=== PATIENT | female | born 1970 | race African-American/Black ===

== ENCOUNTER 2016-12-01 09:31 | Emergency (ER) | payer MEDICAID, MEDICARE ==
[~2016-12-01] VITALS: Ht 160 cm; Wt 95.3 kg
[~2016-12-01 09:31] MED LIST: ALPR1TAB2 PO; ALPR1TAB7 PO; AMIT50TA3 PO; AZIT250T PO; CEFD300C3 PO; DOCU100C37 PO; FAMO20TA3 PO; HYDR-3062 PO; HYDR-3063 PO; HYDR-3816 PO; IBUP-1780 PO; LISI-552 PO; METH4TAB PO; METO-351 PO; PANT40TA2 PO; PANT40TA3 PO; PRD20T PO; RT-ALBUINH IH; SUCR1TAB36 PO; ZOLP5TAB7 PO
[2016-12-01] MEDS ORDERED: NS IV 1000 ML 1,000 ML IV STA (09:53)
[2016-12-01] MEDS ORDERED: fentaNYL INJECTION 100 MCG/2 ML AMP IVP STA ×2 (09:53→12:56)
[2016-12-01] MEDS ORDERED: ONDANSETRON 4 MG/2 ML (SDV) Z0FRAN IVP ONE (10:00)
[2016-12-01 10:41] LABS: BASOPHILS % (AUTO) 1 % (0-10); EOSINOPHILS # (AUTO) 0.1 10^3/uL (0.0-0.3); EOSINOPHILS % (AUTO) 2 % (0-10); LYMPHOCYTES # (AUTO) 1.4 X 10^3 (1.0-4.0); LYMPHOCYTES % (AUTO) 35 % (12-44); MEAN CORPUSCULAR HEMOGLOBIN 30 PG (25-34); MEAN CORPUSCULAR HGB CONC 32 G/DL (32-36); MEAN CORPUSCULAR VOLUME 93 FL (80-99); MEAN PLATELET VOLUME 11.2 FL (7.4-10.4); MONOCYTES # (AUTO) 0.3 X 10^3 (0.0-1.0); MONOCYTES % (AUTO) 6 % (0-12); NEUTROPHILS # (AUTO) 2.3 X 10^3 (1.8-7.8); NEUTROPHILS % (AUTO) 57 % (42-75); PLATELET COUNT 188 10^3/uL (130-400); RED BLOOD COUNT 4.05 10^6/uL (4.35-5.85); RED CELL DISTRIBUTION WIDTH 13.1 % (10.0-14.5); WHITE BLOOD COUNT 4.1 10^3/uL (4.3-11.0)
[2016-12-01 11:02] LABS: ALANINE AMINOTRANSFERASE 16 U/L (0-55); ANION GAP 8 MMOL/L (5-14); ASPARTATE AMINO TRANSFERASE 18 U/L (5-34); BILIRUBIN,TOTAL 0.6 MG/DL (0.1-1.0); BLOOD UREA NITROGEN 12 MG/DL (7-18); BUN/CREATININE RATIO 14; CALCIUM 9.2 MG/DL (8.5-10.1); CARBON DIOXIDE 25 MMOL/L (21-32); CHLORIDE 109 MMOL/L (98-107); CREATININE SERUM 0.83 MG/DL (0.60-1.30); GFR ESTIMATED > 60; GLUCOSE 93 MG/DL (70-105); POTASSIUM 3.5 MMOL/L (3.6-5.0); SODIUM 142 MMOL/L (135-145); TOTAL PROTEIN 6.9 G/DL (6.4-8.2)
[2016-12-01 11:14] LABS: BILIRUBIN,URINE NEGATIVE (NEGATIVE); KETONES,URINE NEGATIVE (NEGATIVE); LEUKOCYTE ESTERASE ,URINE 1+ (NEGATIVE); NITRITE,URINE NEGATIVE (NEGATIVE); PH,URINE 6 (5-9); PROTEIN,URINE 1+ (NEGATIVE); UROBILINOGEN,URINE NORMAL (NORMAL)
--- NOTE | 2016-12-01 11:22 | ED Abdominal Pain ---
General Chief Complaint: Abdominal/GI Problems Stated Complaint: ABD PAIN Nursing Triage Note: C/O LOW ABD CRAMPING Sepsis Screen: No Definite Risk Source of Information: Patient Exam Limitations: No Limitations History of Present Illness Time Seen By Provider: 09:47 Initial Comments Here with report of suprapubic and lower abdominal pain and cramping since yesterday. Patient has had hysterectomy but she states it feels like menstrual cramps. She denies dysuria or diarrhea or other bowel problems. She does report that she has chronic constipation. Denies fever or chills. Does have some nausea without vomiting. Timing/Duration: 24 Hours Severity/Quality: Moderate, Cramping Location: Suprapubic Radiation: No Radiation Activities at Onset: None Modifying Factors: Worsens With Movement Associated Symptoms: No Back Pain, No Chest Pain, No Fever/Chills, Nausea/ Vomiting, No Weakness Allergies and Home Medications Allergies Coded Allergies: Sulfa (Sulfonamide Antibiotics) (Verified Allergy, Unknown, 04/22/15) topiramate (Verified Allergy, Unknown, 05/22/15) tramadol (Verified Allergy, Unknown, 04/22/15) Uncoded Allergies: SILK TAPE (Adverse Reaction, Unknown, 05/22/15) Home Medications Alprazolam 1 Mg Tablet, 1 MG PO TID PRN for ANXIETY, (Reported) Lisinopril 20 Mg Tablet, 20 MG PO DAILY, (Reported) Metoprolol Succinate 25 Mg Tab.er.24h, 25 MG PO HS, (Reported) Pantoprazole Sodium 40 Mg Tablet.dr, 40 MG PO DAILY, #30 Ref 4 Prescribed by: JESSIE DEE on 12/08/15 1141 Prednisone 20 Mg Tab, 20 MG PO DAILY, #3 Prescribed by: SHANA SARGENT on 12/12/15 1829 Sucralfate 1 Gm Tablet, 1 GM PO QID, #120 Prescribed by: JESSIE DEE on 12/08/15 1141 Review of Systems Constitutional: see HPI, No chills, No fever EENTM: No Symptoms Reported Respiratory: No Symptoms Reported, Denies Cough, Denies Shortness of Air Cardiovascular: Denies Chest Pain, Denies Edema Gastrointestinal: See HPI, Abdominal Pain, Constipated, Nausea, Denies Vomiting Genitourinary: No Symptoms Reported Musculoskeletal: no symptoms reported All Other Systems Reviewed Negative Unless Noted: Yes Past Bkzkorw-Tdslds-Fjadpf Hx Patient Social History Alcohol Use: Denies Use Recreational Drug Use: No Smoking Status: Never a Smoker Recent Foreign Travel: No Contact w/Someone Who Travel: No Recent Infectious Disease Expo: No Recent Hopitalizations: No Immunizations Up To Date Tetanus Booster (TDap): Unknown Date of Pneumonia Vaccine: Sep 14, 2012 Surgeries HX Surgeries: Yes (hernia repair, ovary removed, DXLS, kidney stone-URETERAL STENTS) Surgeries: Abdominal, Appendectomy, Gallbladder, Hysterectomy, Oophorectomy, Orthopedic, Renal, Tubal Ligation Respiratory Hx Respiratory Disorders: No Cardiovascular Hx Cardiac Disorders: No Cardiac Disorders: Cardiomyopathy, Hypertension, Valvular Heart Disease Neurological Hx Neurological Disorders: Yes (lumbar spinal stenosis) Neurological Disorders: Headaches /Migraines Reproductive System Hx 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: No Female 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: Endometriosis [employer] History: Hysterectomy Genitourinary Hx Genitourinary Disorders: Yes (URETERAL STENT) Genitourinary Disorders: Kidney Stones Gastrointestinal Hx Gastrointestinal Disorders: Yes Gastrointestinal Disorders: Gastroesophageal Reflux, Diverticulosis Musculoskeletal Hx Musculoskeletal Disorders: Yes (lumbar spinal stenosis) Musculoskeletal Disorders: Chronic Back Pain Endocrine Hx Endocrine Disorders: Yes Endocrine Disorders: Diabetes, Non-Insulin dep HEENT HX ENT Disorders: No Cancer Hx Cancer: No Psychosocial Hx Psychiatric Problems: Yes Behavioral Health Disorders: Anxiety, Schizophrenia, Depression Integumentary HX Skin/Integumentary Disorder: No Blood Transfusions Hx Blood Disorders: No Adverse Reaction to a Blood Tr: No Reviewed Nursing Assessment Reviewed/Agree w Nursing PMH: Yes Family Medical History Significant Family History: No Pertinent Family Hx, CVA Family Medial History: Hypertension 19 MOTHER Kidney disease 19 MOTHER Myocardial infarction 19 FATHER Physical Exam Vital Signs VS - Last 72 Hours, by Label 12/01/16 09:45 Temp 98.3 Pulse 70 Resp 18 B/P (MAP) 146/93 Capillary Refill : Less Than 3 Seconds General Appearance: WD/WN, no apparent distress Neck: full range of motion, supple Respiratory: lungs clear, normal breath sounds Cardiovascular: regular rate, rhythm, no murmur Gastrointestinal: soft, tenderness (suprapubic did not illuminate with the police at) Extremities: non-tender, normal inspection Back: normal inspection, no CVA tenderness, no vertebral tenderness Neurologic/Psychiatric: alert, oriented x 3 Skin: normal color, warm/dry Progress/Results/Core Measures Results/Orders Lab Results Laboratory Tests Test 12/01/16 10:30 12/01/16 11:08 Range/Units White Blood Count 4.1 L 4.3-11.0 10^3/uL Red Blood Count 4.05 L 4.35-5.85 10^6/uL Hemoglobin 12.0 11.5-16.0 G/DL Hematocrit 38 35-52 % Mean Corpuscular Volume 93 80-99 FL Mean Corpuscular Hemoglobin 30 25-34 PG Mean Corpuscular Hemoglobin Concent 32 32-36 G/DL Red Cell Distribution Width 13.1 10.0-14.5 % Platelet Count 188 130-400 10^3/uL Mean Platelet Volume 11.2 H 7.4-10.4 FL Neutrophils (%) (Auto) 57 42-75 % Lymphocytes (%) (Auto) 35 12-44 % Monocytes (%) (Auto) 6 0-12 % Eosinophils (%) (Auto) 2 0-10 % Basophils (%) (Auto) 1 0-10 % Neutrophils # (Auto) 2.3 1.8-7.8 X 10^3 Lymphocytes # (Auto) 1.4 1.0-4.0 X 10^3 Monocytes # (Auto) 0.3 0.0-1.0 X 10^3 Eosinophils # (Auto) 0.1 0.0-0.3 10^3/uL Basophils # (Auto) 0.0 0.0-0.1 10^3/uL Sodium Level 142 135-145 MMOL/L Potassium Level 3.5 L 3.6-5.0 MMOL/L Chloride Level 109 H 98-107 MMOL/L Carbon Dioxide Level 25 21-32 MMOL/L Anion Gap 8 5-14 MMOL/L Blood Urea Nitrogen 12 7-18 MG/DL Creatinine 0.83 0.60-1.30 MG/DL Estimat Glomerular Filtration Rate > 60 BUN/Creatinine Ratio 14 Glucose Level 93 70-105 MG/DL Calcium Level 9.2 8.5-10.1 MG/DL Total Bilirubin 0.6 0.1-1.0 MG/DL Aspartate Amino Transf (AST/SGOT) 18 5-34 U/L Alanine Aminotransferase (ALT/SGPT) 16 0-55 U/L Alkaline Phosphatase 88 40-136 U/L C-Reactive Protein High Sensitivity 1.40 H 0.00-0.50 MG/DL Total Protein 6.9 6.4-8.2 G/DL Albumin 4.0 3.2-4.5 G/DL Urine Color YELLOW Urine Clarity VERY CLOUDY H Urine pH 6 5-9 Urine Specific [place] 1.025 H 1.016-1.022 Urine Protein 1+ H NEGATIVE Urine Glucose (UA) NEGATIVE NEGATIVE Urine Ketones NEGATIVE NEGATIVE Urine Nitrite NEGATIVE NEGATIVE Urine Bilirubin NEGATIVE NEGATIVE Urine Urobilinogen NORMAL NORMAL MG/DL Urine Leukocyte Esterase 1+ H NEGATIVE Urine RBC (Auto) NEGATIVE NEGATIVE Urine RBC NONE /HPF Urine WBC 5-10 H /HPF Urine Squamous Epithelial Cells 10-25 H /HPF Urine Crystals PRESENT H /LPF Urine Calcium Oxalate Crystals RARE H /LPF Urine Bacteria MODERATE H /HPF Urine Casts NONE /LPF Urine Mucus MODERATE H /LPF Urine Culture Indicated YES My Orders Orders - LILIAN RUTHERFORD MD Cbc With Automated Diff (12/01/16 09:53) Comprehensive Metabolic Panel (12/01/16 09:53) Hs C Reactive Protein (12/01/16 09:53) Ua Culture If Indicated (12/01/16 09:53) Ondansetron Injection (Zofran Injectio (12/01/16 10:00) Ns Iv 1000 Ml (Sodium Chloride 0.9%) (12/01/16 09:53) Saline Lock/Iv-Start (12/01/16 09:53) Fentanyl Injection (Sublimaze Injection (12/01/16 09:53) Urine Culture (12/01/16 11:08) Ct Abdomen/Pelvis W (12/01/16 11:49) Iohexol Injection (Omnipaque 350 Mg/Ml 1 (12/01/16 12:30) Ns (Ivpb) (Sodium Chloride 0.9% Ivpb Bag (12/01/16 12:30) Sodium Chloride Flush (Catheter Flush Sy (12/01/16 12:30) Fentanyl Injection (Sublimaze Injection (12/01/16 12:56) Ketorolac Injection (Toradol Injection) (12/01/16 12:56) Hydrocodone/Apap 7.5/325 Tab (Lortab 7. (12/01/16 13:26) Ceftriaxone Injection (Rocephin Injectio (12/01/16 13:30) Medications Given in ED Current Medications Medications Dose Ordered Sig/Louie Route Start Time Stop Time Status Last Admin Dose Admin Ceftriaxone Sodium 1000 mg/ Sodium Chloride 50 ml @ 100 mls/hr ONCE ONCE IV 12/01/16 13:30 12/01/16 13:59 DC 12/01/16 13:36 100 MLS/HR Iohexol 100 ml ONCE ONCE IV 12/01/16 12:30 12/01/16 12:58 DC 12/01/16 12:31 100 ML Ondansetron HCl 4 mg ONCE ONCE IVP 12/01/16 10:00 12/01/16 10:01 DC 12/01/16 11:23 4 MG Sodium Chloride 100 ml ONCE ONCE IV 12/01/16 12:30 12/01/16 12:58 DC 12/01/16 12:31 80 ML Vital Signs/I&O Vital Sign - Last 12Hours 12/01/16 09:45 Temp 98.3 Pulse 70 Resp 18 B/P (MAP) 146/93 Blood Pressure Mean: 110 Progress Note : Progress Note Seen and evaluated. IV, labs and UA ordered. Anticipate CT scan based on results. Monitor patient. Zofran 4 mg IV, and fentanyl 50 g IV and normal saline 1 L bolus ordered. Repeat fentanyl 100 g IV and Toradol [address] abdomen and pelvis completed. No acute findings noted the patient remains in pain. This is after the fentanyl. I did discuss the case with Dr. Barrios. We will try oral pain medicine and I will give a dose of IV antibiotics due to patient's reported nausea and see how she does with that. If she is doing a little better then we will try to get appointment in clinic tomorrow. Patient was okay with this. Monitor patient. Rocephin 1 g IV and hydrocodone 7.5/325 one tab by mouth ordered and initiated. Monitor patient. 1411: Patient doing a little better. I did discuss the case with Dr. Barrios. She will help establish follow-up tomorrow in the clinic. I also discussed with Dr. Barrios about patient's concern about possible surgical follow-up for endoscopy as she had a recommendation of this while she was in [place]. She has noted to concerns. Discharged home with return precautions. Patient verbalize understanding instructions and agreement with plan. Departure Impression Impression: Primary Impression: Lower abdominal pain Additional Impression: Urinary tract infection Qualified Codes: N30.00 - Acute cystitis without hematuria Disposition: HOME, SELF-CARE Condition: Improved Departure-Patient Inst. Decision time for Depature: 14:14 Referrals: NO,LOCAL PHYSICIAN (PCP/Family) Primary Care Physician Patient Instructions: Acute Abdomen (Belly Pain), Adult (DC), Urinary Tract Infection, Adult (DC) Add. Discharge Instructions: All discharge instructions reviewed with patient and/or family. Voiced understanding. Take medications as directed. Follow-up in the clinic tomorrow for recheck and further evaluation. Call the clinic today for follow-up appointment. Return for worse pain, weakness, swelling, breathing problems, difficulty with going to the bathroom or other concerns as needed. Continue home medications as directed. Scripts Hydrocodone/Acetaminophen (Hydrocodon-Acetaminoph 7.5-325) 1 Each Tablet 1 EACH PO Q6H, #12 TAB 0 Refills Prov: LILIAN RUTHERFORD MD 12/01/16 Cephalexin (Cephalexin) 500 Mg Tablet 500 MG PO TID, #21 TAB 0 Refills Prov: LILIAN RUTHERFORD MD 12/01/16 LILIAN RUTHERFORD MD Dec 01, 2016 11:22
[2016-12-01 11:24] LABS: CALCIUM OXALATE CRYSTALS,UR RARE /LPF
[2016-12-01] MEDS ORDERED: IOHEXOL 350 MG/ML 100 ML (OMNIPAQUE 350) VIAL IV ONE (12:30)
[2016-12-01] MEDS ORDERED: CATHETER FLUSH 10 ML SYR IV PRN (12:30)
[2016-12-01] MEDS ORDERED: NS 100 ML (IVPB) BAG IV ONE (12:30)
--- NOTE | 2016-12-01 12:55 | Diagnostic Imaging Report ---
PROCEDURE: CT abdomen and pelvis with contrast. TECHNIQUE: Multiple contiguous axial images were obtained through the abdomen and pelvis after administration of intravenous contrast. INDICATION: Stomach cramps. Nausea. 100 mL of Omnipaque 350 is administered intravenously. FINDINGS: Minimal atelectasis in the lung bases is seen. The liver demonstrate left hepatic lobe lesion measuring 1.5 cm in length with low density likely related to a cyst. This is similar to CT of 04/22/2015 exam. No other hepatic mass identified. Cholecystectomy clips are seen. The spleen is not enlarged. The pancreas and adrenals appear unremarkable. The kidneys have symmetric enhancement and contrast excretion. The abdominal aorta is normal in caliber. No para-aortic significantly enlarged lymph nodes are seen. Extensive diverticulosis involving mostly the sigmoid colon is seen. No evidence of diverticulitis. Suture material near the base of the cecum is probably related to prior appendectomy. There is also suggestion of prior hysterectomy. There is no significant free fluid or fluid collection in the abdomen or pelvis. The osseous structures demonstrate degenerative changes at the SI joints and mild degenerative changes in the lower thoracic spine. IMPRESSION: Diverticulosis. No diverticulitis. Dictated by: Dictated on workstation # [id number]
[2016-12-01] MEDS ORDERED: KETOROLAC 30 MG/ML VIAL IVP STA (12:56)
[2016-12-01] MEDS ORDERED: HYDROcodone/APAP 7.5 MG/325 MG (LORTAB, LORCET PLUS) TABLET PO STA (13:26)
[2016-12-01] MEDS ORDERED: cefTRIAXone INJECTION 1,000 MG in NS (IVPB) 50 ML IV ONE (13:30)
[2016-12-01] MEDS ORDERED: HYDR-3816 PO (14:15)
[2016-12-01] MEDS ORDERED: CEPH500T PO (14:15)
[2016-12-01 14:20] VITALS: BP 120/90
== END 2016-12-01 14:20 | disposition home or self-care (01) ==
LOC: EDUNIT# 09:31 → ER 09:34
DX: R10.30 Lower abdominal pain, unspecified (principal); K57.30 Diverticulosis of large intestine without perforation or abscess without bleeding; I10 Essential (primary) hypertension; E11.9 Type 2 diabetes mellitus without complications; Z90.710 Acquired absence of both cervix and uterus; Z79.899 Other long term (current) drug therapy
CPT/HCPCS: 36415; 74177; 80053; 81000; 85025; 86141; 87088; 96365; 96375; 96376

== ENCOUNTER 2016-12-29 05:39 | Outpatient (CLI) | payer MEDICARE ==
[~2016-12-29] VITALS: Ht 160 cm; Wt 95.3 kg
[~2016-12-29 05:39] MED LIST changes: +CEPH500T PO
== END 2016-12-29 15:56 ==
LOC: PREOP 05:39
PROVIDERS: ATTEND Surgery
DX: Z01.818 Encounter for other preprocedural examination (principal); R10.13 Epigastric pain; R10.11 Right upper quadrant pain

== ENCOUNTER 2017-01-03 10:14 | Day surgery (SDC) | payer MEDICARE ==
[~2017-01-03] VITALS: Ht 160 cm; Wt 95.3 kg
[2017-01-03 10:20] VITALS: BP 143/95
[2017-01-03] MEDS ORDERED: NS IV 1000 ML 1,000 ML IV STA (10:31)
[2017-01-03] MEDS ORDERED: NS IV 1000 ML 1,000 ML ONE (10:32)
[2017-01-03] MEDS ORDERED: proPOfol 200 MG/20 ML (DIPRIVAN) VIAL IV ONE (10:40)
[2017-01-03] MEDS ORDERED: MIDAZOLAM 2 MG/2 ML (VERSED) VIAL ONE (10:40)
[2017-01-03] MEDS ORDERED: HURRICAINE EXT TUBE (BENZOCAINE) XX PRN (10:45)
--- NOTE | 2017-01-03 11:18 | Progress Note-Pre Operative ---
Pre-Operative Progress Note H&P Reviewed The H&P was reviewed, patient examined and no changes noted. Date H&P Reviewed: January 03, 2017 Time H&P Reviewed: 11:17 Pre-Operative Diagnosis: ruq abdominal pain, history of h pylori history of gastritis JESSIE DEE DO January 03, 2017 11:18 am
--- NOTE | 2017-01-03 11:34 | Progress Note-Post Operative ---
Post-Operative Progess Note Surgeon (s)/Communication Engineer (s) Surgeon JESSIE DEE DO Communication Engineer: na Pre-Operative Diagnosis ruq abdominal pain, history of h pylori history of gastritis Post-Operative Diagnosis duodenitis, gastritis, hiatal hernia Procedure & Operative Findings Date of Procedure 01/03/17 Procedure Performed/Findings egd c biopsy Anesthesia Type per [facility] Estimated Blood Loss Estimated blood loss (mL): none Specimens/Packing Specimens Removed antrum JESSIE DEE DO January 03, 2017 11:34 am
[2017-01-03] MEDS ORDERED: SUCR1TAB36 PO ×2 (11:37)
[2017-01-03] MEDS ORDERED: PANT40TA2 PO ×2 (11:37)
--- NOTE | 2017-01-03 11:40 | Discharge Inst-Simple/Standard ---
Discharge Inst-Standard Discharge Medications New, Converted or Re-Newed RX: RX on Chart Patient Instructions/Follow Up Plan of Care/Instructions/FU: Follow Dr. Gannon in 2 weeks. Take medication as directed please. Activity as Tolerated: Yes Discharge Diet: No Restrictions LANDRY ELENA APRN January 03, 2017 11:40
[2017-01-03] MEDS ORDERED: HURRICAINE EXT TUBE (BENZOCAINE) ONE (11:51)
[2017-01-03 11:55] VITALS: BP 165/75
[2017-01-03 12:31] VITALS: BP 158/79
[2017-01-03 12:39] VITALS: BP 158/79
--- NOTE | 2017-01-03 14:59 | OPERATIVE REPORT ---
DATE OF SERVICE: 01/03/2017 PREOPERATIVE DIAGNOSES: Right upper quadrant abdominal pain, history of H. pylori and history of gastritis. POSTOPERATIVE DIAGNOSES: Gastritis, hiatal hernia. PROCEDURE: EGD with biopsy. ANESTHESIA: Per [facility]. SURGEON: Jessie Gannon DO ESTIMATED BLOOD LOSS: None. COMPLICATIONS: None. INDICATIONS: The patient is a 46-year-old female with history of H. pylori and gastritis. She has had more recent right upper quadrant abdominal pain. She stated that she never completed her treatment for H. pylori previously. She moved away and then was seeing gastroenterology and was scheduled for EGD. She was not able to have that accomplished and moved back to [place] here. The patient was sent to [facility] for repeat EGD. She understands risks and benefits of procedure and wished to proceed with procedure. Consent was signed and on the chart. DESCRIPTION OF PROCEDURE: The patient was taken to the endoscopy suite, placed in left lateral recumbent position. Timeout was performed. Scope was inserted in mouth, down into esophagus, stomach and into the duodenum without difficulty. There were no polyps, mass or ulcerations within the duodenum. There was some slight erythematous changes in the first portion of the duodenum. The scope was slowly retracted back into the antrum, which had erythematous changes consistent with gastritis. Biopsy of the antrum was obtained. The scope was retroflexed, noting a small hiatal hernia. No other pathology was noted. The scope was returned to its normal position, slowly withdrawn back into the distal esophagus which had no polyps, masses, ulcerations or erythematous changes. The scope was then slowly retracted back, noting no other pathology. The patient tolerated the procedure well without any complications. She was taken to recovery room in stable condition. RECOMMENDATIONS: The patient will be changed to Protonix 40 mg twice a day for two weeks and then once per day. Also, Carafate 1 gram four times a day. She will follow up on biopsies in approximately 2 weeks. If she has any problems prior to that, she should be reevaluated at that time. Job ID: [id number] DocumentID: [id number] Dictated Date: 01/03/2017 11:37:18 Inventory Administrator Date: 01/03/2017 12:47:41 Dictated By: JESSIE GANNON DO
== END 2017-01-03 12:35 | disposition home or self-care (01) ==
LOC: ENDO 10:14
PROVIDERS: ATTEND Surgery
DX: K29.70 Gastritis, unspecified, without bleeding (principal); K44.9 Diaphragmatic hernia without obstruction or gangrene; I10 Essential (primary) hypertension; E11.9 Type 2 diabetes mellitus without complications; I08.3 Combined rheumatic disorders of mitral, aortic and tricuspid valves; G47.33 Obstructive sleep apnea (adult) (pediatric); E66.01 Morbid (severe) obesity due to excess calories; Z68.37 Body mass index [BMI] 37.0-37.9, adult; Z79.899 Other long term (current) drug therapy

== ENCOUNTER 2017-01-03 20:50 | Emergency (ER) | payer MEDICARE ==
[~2017-01-03] VITALS: Ht 167.6 cm; Wt 95.3 kg
[2017-01-03] MEDS ORDERED: RX-NITROGLYCERIN 0.4 MG TAB BTL 25'S SL PRN (21:15)
[2017-01-03] MEDS ORDERED: ASPIRIN 81 MG CHEW (CHILDREN'S ASA) PO ONE (21:15)
[2017-01-03 21:25] LABS: BASOPHILS % (AUTO) 1 % (0-10); EOSINOPHILS # (AUTO) 0.1 10^3/uL (0.0-0.3); EOSINOPHILS % (AUTO) 1 % (0-10); LYMPHOCYTES # (AUTO) 2.3 X 10^3 (1.0-4.0); LYMPHOCYTES % (AUTO) 39 % (12-44); MEAN CORPUSCULAR HEMOGLOBIN 30 PG (25-34); MEAN CORPUSCULAR HGB CONC 32 G/DL (32-36); MEAN CORPUSCULAR VOLUME 92 FL (80-99); MEAN PLATELET VOLUME 11.3 FL (7.4-10.4); MONOCYTES # (AUTO) 0.6 X 10^3 (0.0-1.0); MONOCYTES % (AUTO) 10 % (0-12); NEUTROPHILS # (AUTO) 2.9 X 10^3 (1.8-7.8); NEUTROPHILS % (AUTO) 49 % (42-75); PLATELET COUNT 191 10^3/uL (130-400); WHITE BLOOD COUNT 5.9 10^3/uL (4.3-11.0)
[2017-01-03] MEDS ORDERED: PANTOPRAZOLE 40 MG/10 ML (PROTONIX) VIAL IV ONE (21:30)
[2017-01-03] MEDS ORDERED: ANTACID SUSP 30 ML UDC (MYLANTA) PO ONE (21:30)
[2017-01-03] MEDS ORDERED: KETOROLAC 30 MG/ML VIAL IVP ONE (21:30)
[2017-01-03] MEDS ORDERED: LIDOCAINE 2% VISCOUS 15 ML UDC PO ONE (21:30)
[2017-01-03 21:42] LABS: ALANINE AMINOTRANSFERASE 17 U/L (0-55); ALBUMIN 4.2 G/DL (3.2-4.5); AMYLASE 86 U/L (25-125); ANION GAP 11 MMOL/L (5-14); ASPARTATE AMINO TRANSFERASE 18 U/L (5-34); BILIRUBIN,TOTAL 0.4 MG/DL (0.1-1.0); BLOOD UREA NITROGEN 9 MG/DL (7-18); BUN/CREATININE RATIO 13; CALCIUM 9.3 MG/DL (8.5-10.1); CARBON DIOXIDE 19 MMOL/L (21-32); CHLORIDE 112 MMOL/L (98-107); CREATINE KINASE 156 U/L (29-168); CREATININE SERUM 0.72 MG/DL (0.60-1.30); GFR ESTIMATED > 60; GLUCOSE 85 MG/DL (70-105); LIPASE 13 U/L (8-78); MAGNESIUM 2.1 MG/DL (1.8-2.4); POTASSIUM 3.5 MMOL/L (3.6-5.0); SODIUM 142 MMOL/L (135-145); TOTAL PROTEIN 7.5 G/DL (6.4-8.2)
--- NOTE | 2017-01-03 21:43 | Diagnostic Imaging Report ---
INDICATION: Chest pain on left side started tonight COMPARISON STUDY: Chest dated 01/22/16. FINDINGS: Portable upright view of the chest demonstrates the lungs to be clear. The heart, mediastinum, pulmonary vascularity and visualized bony thorax normal. IMPRESSION: Negative chest. Dictated by: Dictated on workstation # [id number]
[2017-01-03 21:49] LABS: TROPONIN I < 0.30 NG/ML (<0.30)
--- NOTE | 2017-01-03 21:51 | ED Chest Pain ---
General Chief Complaint: Chest Pain Stated Complaint: NECK/BACK/CHEST PAIN Nursing Triage Note: to ER with complaints of substernal chest pain as well as neck and back pain. This all started this morning prior to Upper GI study. Nursing Sepsis Screen: No Definite Risk Source: patient (GIVES VERY LIMITED INFORMATION) History of Present Illness Time seen by provider: 21:00 Initial Comments PT ARRIVES VIA POV C/O CHEST PAIN THAT BEGAN AROUND 0700, AFTER WAKING AT 0600 PAIN IS IN LEFT UPPER CHEST AND RADIATES TO LEFT SHOULDER AND SCAPULA + SHORTNESS OF BREATH + NAUSEA, NO VOMITING + DIZZINESS ANKLES WERE SWOLLEN EARLIER, BUT NOT NOW NO CALF PAIN NO PALPITATIONS SYMPTOMS COME AND GO AND ARE WORSE WITH EXERTION PT HAD OUTPATIENT EGD THIS AM BY DR. DEE, WITH DX OF GASTRITIS / HIATAL HERNIA /HX OF H. PYLORI--WAS GIVEN RX'S FOR PPI AND CARAFATE, BUT PT HAS NOT FILLED THEM. PT HAS HAD THIS SAME PAIN NUMEROUS TIMES AND HAS HAD MULTIPLE VISITS AND ADMITS FOR SAME--ALL WORK-UP'S NEGATIVE FOR CARDIAC DISEASE, INCLUDING CARDIAC CATHS-- LAST CATH WAS 09/14/15 PT STATES SHE HAS NOT TAKEN ANY OF HER MEDICATIONS SINCE NOVEMBER 22--GIVES NO EXPLANATION TO WHY SHE HAS NOT BEEN TAKING THEM. MULTIPLE VISITS--LAST ER VISIT HERE 12/01/16 FOR LOWER ABDOMINAL PAIN-DX WITH UTI. PCP: RICK Allergies and Home Medications Allergies Coded Allergies: Sulfa (Sulfonamide Antibiotics) (Verified Allergy, Unknown, 04/22/15) topiramate (Verified Allergy, Unknown, 05/22/15) tramadol (Verified Allergy, Unknown, 04/22/15) Uncoded Allergies: SILK TAPE (Adverse Reaction, Unknown, 05/22/15) Home Medications No Active Prescriptions or Reported Meds Review of Systems Constitutional: see HPI, No chills, No diaphoresis, dizziness, No fever, malaise EENTM: No Symptoms Reported Respiratory: See HPI, Shortness of Air, SOA With Exertion Cardiovascular: See HPI, Chest Pain, Edema, Denies Irregular Heart Rate, Lightheadedness, Denies Palpitations, Denies Syncope Gastrointestinal: See HPI, Denies Abdominal Pain, Nausea, Denies Vomiting Genitourinary: No Symptoms Reported Musculoskeletal: see HPI, back pain, other (LEFT SHOULDER PAIN) Skin: no symptoms reported Psychiatric/Neurological: No Symptoms Reported Endocrine: No Symptoms Reported Hematologic/Lymphatic: No Symptoms Reported Past Fdrpigi-Obtpsq-Svndya Hx Patient Social History Alcohol Use: Denies Use Recreational Drug Use: No Smoking Status: Never a Smoker 2nd Hand Smoke Exposure: No Recent Foreign Travel: No Contact w/Someone Who Travel: No Recent Infectious Disease Expo: No Recent Hopitalizations: No Immunizations Up To Date Tetanus Booster (TDap): Unknown Date of Pneumonia Vaccine: Sep 14, 2012 Seasonal Allergies Seasonal Allergies: No Surgeries HX Surgeries: Yes (HERNIA REPAIR, OOPHORECTOMY, DXLS, KIDNEY STONE-URETERAL STENTS; CARDIAC CATHS-NO INTERVENTION; EGD 01/03/17) Surgeries: Abdominal, Appendectomy, Cardiac, Gallbladder, Hysterectomy, Oophorectomy, Orthopedic, Renal, Tubal Ligation Respiratory Hx Respiratory Disorders: Yes Respiratory Disorders: Sleep Apnea Cardiovascular Hx Cardiac Disorders: Yes Cardiac Disorders: Cardiomyopathy, Hypertension, Valvular Heart Disease Neurological Hx Neurological Disorders: Yes (lumbar spinal stenosis) Neurological Disorders: Headaches /Migraines Reproductive System Hx 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: No Female 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: 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 Genitourinary Hx Genitourinary Disorders: Yes Genitourinary Disorders: Kidney Stones Gastrointestinal Hx Gastrointestinal Disorders: Yes Gastrointestinal Disorders: Gastroesophageal Reflux, Diverticulosis Musculoskeletal Hx Musculoskeletal Disorders: Yes (lumbar spinal stenosis) Musculoskeletal Disorders: Chronic Back Pain Endocrine Hx Endocrine Disorders: Yes (thyroid nodules; OBESITY) Endocrine Disorders: Diabetes, Non-Insulin dep HEENT HX ENT Disorders: No Cancer Hx Cancer: No Psychosocial Hx Psychiatric Problems: Yes Behavioral Health Disorders: Anxiety, Schizophrenia, Depression Integumentary HX Skin/Integumentary Disorder: No Blood Transfusions Hx Blood Disorders: Yes (anemia prior to hysterectomy) Adverse Reaction to a Blood Tr: No Family Medical History Family Medial History: Hypertension 19 MOTHER Kidney disease 19 MOTHER Myocardial infarction 19 FATHER Physical Exam Vital Signs Vital Sign - Last 12Hours Capillary Refill : Less Than 3 Seconds General Appearance: No Apparent Distress, Obese, Other (DRAMATIC, VOICE BARELY AUDIBLE, VERY FLAT AFFECT AND APPEARS "LETHARGIC" WITH VERY SLOW AND DRAMATIC MOVEMENTS. ) HEENT: PERRL/EOMI Neck: Full Range of Motion, Normal Inspection, Non Tender, Supple, No Carotid Bruit, No JVD Respiratory: Normal Breath Sounds, No Accessory Muscle Use, No Respiratory Distress, Other (MILD LEFT UPPER CHEST TENDERNESS) Cardiovascular: Regular Rate, Rhythm, No Edema, No Gallop, No JVD, No Murmur, Normal Peripheral Pulses Gastrointestinal: Normal Bowel Sounds, No Organomegaly, No Pulsatile Mass, Non Tender, Soft Extremity: Normal Capillary Refill, Normal Inspection, Normal Range of Motion, Non Tender, No Calf Tenderness, No Pedal Edema Neurologic/Psychiatric: Alert, Oriented x3, No Motor/Sensory Deficits, 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 Norm as Tested Skin: Normal Color, Warm/Dry Progress/Results/Core Measures Results/Orders Lab Results Laboratory Tests Test 01/03/17 21:16 Range/Units White Blood Count 5.9 4.3-11.0 10^3/uL Red Blood Count 4.30 L 4.35-5.85 10^6/uL Hemoglobin 12.8 11.5-16.0 G/DL Hematocrit 40 35-52 % Mean Corpuscular Volume 92 80-99 FL Mean Corpuscular Hemoglobin 30 25-34 PG Mean Corpuscular Hemoglobin Concent 32 32-36 G/DL Red Cell Distribution Width 13.0 10.0-14.5 % Platelet Count 191 130-400 10^3/uL Mean Platelet Volume 11.3 H 7.4-10.4 FL Neutrophils (%) (Auto) 49 42-75 % Lymphocytes (%) (Auto) 39 12-44 % Monocytes (%) (Auto) 10 0-12 % Eosinophils (%) (Auto) 1 0-10 % Basophils (%) (Auto) 1 0-10 % Neutrophils # (Auto) 2.9 1.8-7.8 X 10^3 Lymphocytes # (Auto) 2.3 1.0-4.0 X 10^3 Monocytes # (Auto) 0.6 0.0-1.0 X 10^3 Eosinophils # (Auto) 0.1 0.0-0.3 10^3/uL Basophils # (Auto) 0.0 0.0-0.1 10^3/uL Prothrombin Time 12.4 12.2-14.7 SEC INR Comment 1.0 0.8-1.4 Activated Partial Thromboplast Time 31 24-35 SEC Sodium Level 142 135-145 MMOL/L Potassium Level 3.5 L 3.6-5.0 MMOL/L Chloride Level 112 H 98-107 MMOL/L Carbon Dioxide Level 19 L 21-32 MMOL/L Anion Gap 11 5-14 MMOL/L Blood Urea Nitrogen 9 7-18 MG/DL Creatinine 0.72 0.60-1.30 MG/DL Estimat Glomerular Filtration Rate > 60 BUN/Creatinine Ratio 13 Glucose Level 85 70-105 MG/DL Calcium Level 9.3 8.5-10.1 MG/DL Magnesium Level 2.1 1.8-2.4 MG/DL Total Bilirubin 0.4 0.1-1.0 MG/DL Aspartate Amino Transf (AST/SGOT) 18 5-34 U/L Alanine Aminotransferase (ALT/SGPT) 17 0-55 U/L Alkaline Phosphatase 90 40-136 U/L Total Creatine Kinase 156 29-168 U/L Creatine Kinase MB 1.0 <6.6 NG/ML Troponin I < 0.30 <0.30 NG/ML B-Type Natriuretic Peptide < 10.0 <100.0 PG/ML Total Protein 7.5 6.4-8.2 G/DL Albumin 4.2 3.2-4.5 G/DL Amylase Level 86 25-125 U/L Lipase 13 8-78 U/L My Orders Orders - WILLY HAMPTON DO Amylase (01/03/17 21:03) Cbc With Automated Diff (01/03/17 21:03) Comprehensive Metabolic Panel (01/03/17 21:03) Creatine Kinase (01/03/17 21:03) Creatine Kinase Mb (01/03/17 21:03) Lipase (01/03/17 21:03) Partial Thromboplastin Time (01/03/17 21:03) Protime With Inr (01/03/17 21:03) Troponin I (01/03/17 21:03) Chest 1 View, Ap/Pa Only (01/03/17 21:03) O2 (01/03/17 21:03) Ekg Tracing (01/03/17 21:03) Aspirin Chewable Tablet (Baby Aspirin Ch (01/03/17 21:15) Rx-Nitroglycerin Sl Tabs (Rx-Nitrostat S (01/03/17 21:15) BNP (01/03/17 21:03) Monitor-Rhythm Ecg Trace Only (01/03/17 21:03) Magnesium (01/03/17 21:03) Pantoprazole Injection (Protonix Injecti (01/03/17 21:30) Lidocaine 2% Viscous 15 Ml (Xylocaine Vi (01/03/17 21:30) Antacid Suspension (Mylanta Suspension (01/03/17 21:30) Ketorolac Injection (Toradol Injection) (01/03/17 21:30) Ct Angio Chest W (01/03/17 21:51) Iohexol Injection (Omnipaque 350 Mg/Ml 1 (01/03/17 22:30) Ns (Ivpb) (Sodium Chloride 0.9% Ivpb Bag (01/03/17 22:30) Medications Given in ED Current Medications Medications Dose Ordered Sig/Louie Route Start Time Stop Time Status Last Admin Dose Admin Al Hydrox/Mg Hydrox/Simethicone 30 ml ONCE ONCE PO 01/03/17 21:30 01/03/17 21:31 DC 01/03/17 21:36 30 ML Aspirin 324 mg ONCE ONCE PO 01/03/17 21:15 01/03/17 21:16 DC 01/03/17 21:14 324 MG Iohexol 150 ml ONCE ONCE IV 01/03/17 22:30 01/03/17 22:31 DC 01/03/17 22:22 125 ML Ketorolac Tromethamine 30 mg ONCE ONCE IVP 01/03/17 21:30 01/03/17 21:31 DC 01/03/17 21:36 30 MG Lidocaine HCl 5 ml ONCE ONCE PO 01/03/17 21:30 01/03/17 21:31 DC 01/03/17 21:36 5 ML Nitroglycerin 0.4 mg UD PRN SL 01/03/17 21:15 01/03/17 21:14 0.4 MG Pantoprazole 40 mg ONCE ONCE IV 01/03/17 21:30 01/03/17 21:31 DC 01/03/17 21:38 40 MG Sodium Chloride 100 ml ONCE ONCE IV 01/03/17 22:30 01/03/17 22:31 DC 01/03/17 22:22 80 ML Vital Signs/I&O Vital Sign - Last 12Hours 01/03/17 01/03/17 01/03/17 01/03/17 21:00 21:00 21:00 21:14 Temp 98.6 98.6 Pulse 78 Resp 18 B/P (MAP) 124/82 Pulse Ox 100 100 O2 Delivery Room Air Room Air Room Air 01/03/17 21:36 Temp 98.6 Blood Pressure Mean: 96 Progress Note : Progress Note NO RELIEF WITH NTG SYMPTOMS MUCH IMPROVED/RESOLVED WITH GI COCKTAIL, PROTONIX AND TORADOL ECG Initial ECG Impression Time: 20:56 Initial ECG Rate: 82 Initial ECG Rhythm: Normal Sinus Initial ECG Impression: Normal Initial ECG Comparisson: Unchanged Diagnostic Imaging Comments CXR--NO ACUTE PROCESS, PER RADIOLOGIST REPORT @ 2159 CT CHEST ANGIOGRAM--NO P.E., NO ACUTE PROCESS--PER [facility] VIA FAX @ [id number] Reviewed: Reviewed by Me Departure Communication Progress Notes 0--SPOKE WITH DR. MAYEN, WILL HAVE PT FOLLOW UP IN CLINIC IN 1-2 DAYS FOR FURTHER CARE Impression Impression: Primary Impression: Chest pain Additional Impressions: Gastroesophageal reflux disease Gastritis Disposition: HOME, SELF-CARE Condition: Improved Departure-Patient Inst. Referrals: [facility] (PCP/Family) Primary Care Physician JESSIE DEE DO Patient Instructions: Acid Reflux (Gastroesophageal Reflux Disease), Adult (DC) , Paden Diet, Chest Pain That Is Not Caused by the Heart (DC), Gastritis (DC) Add. Discharge Instructions: GET YOUR PRESCRIPTIONS FILLED AND TAKE PRESCRIBED CALL [facility] IN AM TO SCHEDULE FOLLOW UP APPOINTMENT IN 1-2 DAYS RETURN TO ER IF WORSE All discharge instructions reviewed with patient and/or family. Voiced understanding. Scripts No Active Prescriptions or Reported Meds WILLY HAMPTON DO January 03, 2017 21:51
[2017-01-03 21:54] LABS: PROTHROMBIN TIME PATIENT 12.4 SEC (12.2-14.7)
[2017-01-03] MEDS ORDERED: IOHEXOL 350 MG/ML 150 ML (OMNIPAQUE 350) VIAL IV ONE (22:30)
[2017-01-03] MEDS ORDERED: NS 100 ML (IVPB) BAG IV ONE (22:30)
[2017-01-03 23:21] VITALS: BP 141/94
--- NOTE | 2017-01-04 08:24 | Diagnostic Imaging Report ---
PROCEDURE: CT angiography of the chest with contrast. TECHNIQUE: Multiple contiguous axial images were obtained through the chest after uneventful bolus administration of intravenous contrast. Reconstructed CTA MIP acquisitions were also performed. INDICATION: Chest pain. 125 mL of Omnipaque 350 is administered intravenously. COMPARISON: 11/06/2015. FINDINGS: The thoracic aorta is well opacified and is normal in caliber with no dissection or aneurysm. The pulmonary arteries are well opacified with no filling defect seen to suggest pulmonary embolism. There is no pericardial effusion. There is anterior mediastinal soft tissue density which is most likely related to thymic remnant. There is otherwise no mediastinal, hilar, or axillary lymphadenopathy. The lungs demonstrate no significant consolidation. There is minimal dependent atelectasis seen in the lungs bilaterally. There are tiny nodular subpleural densities seen in the right lower lobe and right middle lobe generally wider at the pleural surface in favor of tiny foci of atelectasis. Sections in the upper abdomen demonstrate cholecystectomy clips. The osseous structures demonstrate mild anterolateral syndesmophytes asymmetric to the right side. IMPRESSION: No PE or aortic dissection. Minimal changes in the subpleural regions within the lungs are favored to be atelectasis related. This reading agrees with the [facility] report. Dictated by: Dictated on workstation # [id number]
== END 2017-01-03 23:21 | disposition home or self-care (01) ==
LOC: EDUNIT# 20:50 → ER 20:51
DX: K21.9 Gastro-esophageal reflux disease without esophagitis (principal); K29.70 Gastritis, unspecified, without bleeding; M54.2 Cervicalgia; I10 Essential (primary) hypertension; E11.9 Type 2 diabetes mellitus without complications; E66.9 Obesity, unspecified; Z91.19 Patient's noncompliance with other medical treatment and regimen
CPT/HCPCS: 36415; 71010; 71275; 80053; 82150; 82550; 82553; 83690; 83735; 83880; 84484; 85025; 85610; 85730; 93041

== ENCOUNTER 2019-02-22 21:53 | Observation (INO) | payer MEDICARE, MEDICAID ==
[~2019-02-22] VITALS: Ht 160 cm; Wt 97.7 kg
[~2019-02-22 21:53] MED LIST changes: +HYDR-34 PO; -HYDR-3816 PO
[2019-02-22] MEDS ORDERED: NS IV 1000 ML 1,000 ML IV ONE (23:25)
[2019-02-22] MEDS ORDERED: fentaNYL INJECTION 100 MCG/2 ML AMP IVP ONE (23:30)
[2019-02-22] MEDS ORDERED: ONDANSETRON 4 MG/2 ML (SDV) Z0FRAN IVP ONE (23:30)
[2019-02-22 23:42] LABS: BASOPHILS % (AUTO) 0 % (0-10); EOSINOPHILS # (AUTO) 0.1 10^3/uL (0.0-0.3); EOSINOPHILS % (AUTO) 1 % (0-10); HEMATOCRIT 39 % (35-52); HEMOGLOBIN 12.7 G/DL (11.5-16.0); LYMPHOCYTES # (AUTO) 1.7 X 10^3 (1.0-4.0); LYMPHOCYTES % (AUTO) 27 % (12-44); MEAN CORPUSCULAR HEMOGLOBIN 30 PG (25-34); MEAN CORPUSCULAR HGB CONC 33 G/DL (32-36); MEAN CORPUSCULAR VOLUME 92 FL (80-99); MEAN PLATELET VOLUME 10.8 FL (7.4-10.4); MONOCYTES # (AUTO) 0.4 X 10^3 (0.0-1.0); MONOCYTES % (AUTO) 7 % (0-12); NEUTROPHILS # (AUTO) 4.2 X 10^3 (1.8-7.8); NEUTROPHILS % (AUTO) 65 % (42-75); PLATELET COUNT 214 10^3/uL (130-400); RED CELL DISTRIBUTION WIDTH 13.2 % (10.0-14.5); WHITE BLOOD COUNT 6.5 10^3/uL (4.3-11.0)
[2019-02-23] LABS: ALANINE AMINOTRANSFERASE 22 U/L (0-55); ALBUMIN 4.1 GM/DL (3.2-4.5); ALKALINE PHOSPHATASE 128 U/L (40-136); BILIRUBIN,TOTAL 0.4 MG/DL (0.1-1.0); BUN/CREATININE RATIO 12; CALCIUM 9.7 MG/DL (8.5-10.1); CARBON DIOXIDE 24 MMOL/L (21-32); CHLORIDE 107 MMOL/L (98-107); CREATININE SERUM 0.82 MG/DL (0.60-1.30); GFR ESTIMATED > 60; GLUCOSE 117 MG/DL (70-105); LIPASE 11 U/L (8-78); POTASSIUM 3.5 MMOL/L (3.6-5.0); SODIUM 142 MMOL/L (135-145); TOTAL PROTEIN 7.4 GM/DL (6.4-8.2)
[2019-02-23] MEDS ORDERED: fentaNYL INJECTION 100 MCG/2 ML AMP IVP ONE (00:15)
[2019-02-23] MEDS ORDERED: IOHEXOL 350 MG/ML 100 ML (OMNIPAQUE 350) VIAL IV ONE (01:00)
[2019-02-23] MEDS ORDERED: NS 100 ML (IVPB) BAG IV ONE (01:00)
[2019-02-23] MEDS ORDERED: HOLD METFORMIN - RECEIVED CONTRAST 20 ML VIAL IV SCH (01:00)
[2019-02-23] MEDS ORDERED: CIPROFLOXACIN 500 MG (CIPRO) TABLET PO ONE (02:30)
[2019-02-23] MEDS ORDERED: KETOROLAC 30 MG/ML VIAL IVP ONE (02:30)
[2019-02-23] MEDS ORDERED: metroNIDAZOLE 500 MG (FLAGYL) TAB PO ONE (02:30)
[2019-02-23] MEDS ORDERED: CIPROFLOXACIN IV 400MG/200ML 200 ML IV ONE (02:45)
[2019-02-23] MEDS ORDERED: PROMETHAZINE INJ 25 MG/ML (PHENERGAN) AMP IVP ONE (03:15)
--- NOTE | 2019-02-23 04:24 | ED Abdominal Pain ---
General Chief Complaint: Abdominal/GI Problems Stated Complaint: CONSTIPATED X 1 WK Nursing Triage Note: AMBULATORY TO ED ROOM 10 FOR C/O UNABLE TO HAVE BM FOR 2 WEEKS (SMALL BM LAST WEEK). TOOK COLACE TWICE TODOAY WITH NO RESULTS, SO DRANK PRUNE JUICE AND STATES HAS NOT HAD RESULTS EITHER. NO OTC LAXATIVES TRIED. Sepsis Screen: No Definite Risk Source of Information: Patient Exam Limitations: No Limitations History of Present Illness Date Seen by Provider: Feb 22, 2019 Time Seen by Provider: 23:16 Initial Comments This 48-year-old woman presents to the emergency room with complaints of abdominal cramping and tenderness to the abdomen for about 3 days. She states she is no longer passing gas. She is only had one bowel movement in the last 2 weeks. She has nausea without vomiting. She denies fever. She has a history of a prior bowel obstruction. 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 Allergies and Home Medications Allergies Coded Allergies: Sulfa (Sulfonamide Antibiotics) (Verified Allergy, Unknown, 04/22/15) topiramate (Verified Allergy, Unknown, 05/22/15) tramadol (Verified Allergy, Unknown, 04/22/15) Uncoded Allergies: SILK TAPE (Adverse Reaction, Unknown, 05/22/15) Home Medications No Active Prescriptions or Reported Meds Patient Home Medication List Home Medication List Reviewed: Yes Review of Systems Review of Systems Constitutional: no symptoms reported EENTM: No Symptoms Reported Respiratory: No Symptoms Reported Cardiovascular: No Symptoms Reported Gastrointestinal: See HPI Genitourinary: No Symptoms Reported Musculoskeletal: no symptoms reported Skin: no symptoms reported Psychiatric/Neurological: No Symptoms Reported Endocrine: No Symptoms Reported Hematologic/Lymphatic: No Symptoms Reported Past Vloscuh-Twirry-Lpomnf Hx Past Med/Social Hx: Reviewed and Corrections made Patient Social History Alcohol Use: Rarely Uses Recreational Drug Use: No Smoking Status: Never a Smoker 2nd Hand Smoke Exposure: No Recent Foreign Travel: No Contact w/Someone Who Travel: No Recent Infectious Disease Expo: No Recent Hopitalizations: No Physical Abuse: No Sexual Abuse: No Mistreated: No Fear: No Immunizations Up To Date Tetanus Booster (TDap): Unknown Date of Pneumonia Vaccine: Sep 14, 2012 Seasonal Allergies Seasonal Allergies: No Past Medical History Surgeries: Yes (hernia repair, ovary removed, DXLS, kidney stone-URETERAL STENTS) Abdominal, Appendectomy, Bladder Surgery, Cardiac, Gallbladder, Hysterectomy, Oophorectomy, Orthopedic, Renal, Tubal Ligation Respiratory: Yes Sleep Apnea Currently Using CPAP: Yes Cardiac: Yes Cardiomyopathy, Hypertension, Valvular Heart Disease Neurological: Yes (lumbar spinal stenosis) Headaches /Migraines 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: No Female 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: Endometriosis 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 Gastrointestinal: Yes Gastroesophageal Reflux, Obstructive Bowel, Diverticulosis, Pancreatitis Musculoskeletal: Yes (lumbar spinal stenosis) Chronic Back Pain Endocrine: Yes (thyroid nodules; OBESITY) Diabetes, Non-Insulin dep Cancer: No Psychosocial: Yes Anxiety, Schizophrenia, Depression Integumentary: No Blood Disorders: Yes (anemia prior to hysterectomy) Adverse Reaction/Blood Tranf: No Family Medical History Hypertension 19 MOTHER Kidney disease 19 MOTHER Myocardial infarction 19 FATHER Physical Exam Vital Signs Vital Signs - First Documented 02/22/19 22:45 Temp 98.6 Pulse 101 Resp 18 B/P (MAP) 161/91 (114) Capillary Refill : Less Than 3 Seconds Height/Weight/BMI Height: 5'3.00" Weight: 225lbs. 0oz. 102.865363cp; 37.2 BMI Method:Stated General Appearance: WD/WN, no apparent distress HEENT: normal ENT inspection, pharynx normal (oropharynx somewhat dry) Neck: normal inspection Respiratory: lungs clear, normal breath sounds, no respiratory distress, no accessory muscle use Cardiovascular: regular rate, rhythm, no edema, no murmur Gastrointestinal: soft, abnormal bowel sounds (decreased); No distended; tenderness (generalized) Extremities: non-tender, normal inspection, no pedal edema Neurologic/Psychiatric: neuropsychologist II-XII nml as tested, no motor/sensory deficits, alert, normal mood/affect, oriented x 3 Skin: normal color, warm/dry Progress/Results/Core Measures Results/Orders Lab Results Laboratory Tests Test 02/22/19 23:35 Range/Units White Blood Count 6.5 4.3-11.0 10^3/uL Red Blood Count 4.26 L 4.35-5.85 10^6/uL Hemoglobin 12.7 11.5-16.0 G/DL Hematocrit 39 35-52 % Mean Corpuscular Volume 92 80-99 FL Mean Corpuscular Hemoglobin 30 25-34 PG Mean Corpuscular Hemoglobin Concent 33 32-36 G/DL Red Cell Distribution Width 13.2 10.0-14.5 % Platelet Count 214 130-400 10^3/uL Mean Platelet Volume 10.8 H 7.4-10.4 FL Neutrophils (%) (Auto) 65 42-75 % Lymphocytes (%) (Auto) 27 12-44 % Monocytes (%) (Auto) 7 0-12 % Eosinophils (%) (Auto) 1 0-10 % Basophils (%) (Auto) 0 0-10 % Neutrophils # (Auto) 4.2 1.8-7.8 X 10^3 Lymphocytes # (Auto) 1.7 1.0-4.0 X 10^3 Monocytes # (Auto) 0.4 0.0-1.0 X 10^3 Eosinophils # (Auto) 0.1 0.0-0.3 10^3/uL Basophils # (Auto) 0.0 0.0-0.1 10^3/uL Sodium Level 142 135-145 MMOL/L Potassium Level 3.5 L 3.6-5.0 MMOL/L Chloride Level 107 98-107 MMOL/L Carbon Dioxide Level 24 21-32 MMOL/L Anion Gap 11 5-14 MMOL/L Blood Urea Nitrogen 10 7-18 MG/DL Creatinine 0.82 0.60-1.30 MG/DL Estimat Glomerular Filtration Rate > 60 BUN/Creatinine Ratio 12 Glucose Level 117 H 70-105 MG/DL Calcium Level 9.7 8.5-10.1 MG/DL Corrected Calcium 9.6 8.5-10.1 MG/DL Total Bilirubin 0.4 0.1-1.0 MG/DL Aspartate Amino Transf (AST/SGOT) 18 5-34 U/L Alanine Aminotransferase (ALT/SGPT) 22 0-55 U/L Alkaline Phosphatase 128 40-136 U/L C-Reactive Protein High Sensitivity 6.01 H 0.00-0.50 MG/DL Total Protein 7.4 6.4-8.2 GM/DL Albumin 4.1 3.2-4.5 GM/DL Lipase 11 8-78 U/L My Orders Orders - SHANA BOYD MD Abdomen, Flat & Upright/Decub (02/22/19 22:58) Cbc With Automated Diff (02/22/19 23:25) Comprehensive Metabolic Panel (02/22/19 23:25) Hs C Reactive Protein (02/22/19 23:25) Lipase (02/22/19 23:25) Ua Culture If Indicated (02/22/19 23:25) Ed Iv/Invasive Line Start (02/22/19 23:25) Ondansetron Injection (Zofran Injectio (02/22/19 23:30) Fentanyl Injection (Sublimaze Injection (02/22/19 23:30) Ns Iv 1000 Ml (Sodium Chloride 0.9%) (02/22/19 23:25) Fentanyl Injection (Sublimaze Injection (02/23/19 00:15) Ct Abdomen/Pelvis W (02/23/19 00:15) Iohexol Injection (Omnipaque 350 Mg/Ml 1 (02/23/19 01:00) Received Contrast (Hold Metformin- Contr (02/23/19 01:00) Ns (Ivpb) (Sodium Chloride 0.9% Ivpb Bag (02/23/19 01:00) Ketorolac Injection (Toradol Injection) (02/23/19 02:30) Ciprofloxacin Tablet (Cipro Tablet) (02/23/19 02:30) Metronidazole Tablet (Flagyl Tablet) (02/23/19 02:30) Ciprofloxacin Iv 400mg/200ml (Cipro Iv S (02/23/19 02:45) Promethazine Injection (Phenergan Injec (02/23/19 03:15) Medications Given in ED Current Medications Medications Dose Ordered Sig/Louie Route Start Time Stop Time Status Last Admin Dose Admin Ciprofloxacin/ Dextrose 200 ml @ 200 mls/hr ONCE ONCE IV 02/23/19 02:45 02/23/19 03:44 DC 02/23/19 03:02 200 MLS/HR Fentanyl Citrate 50 mcg ONCE ONCE IVP 02/22/19 23:30 02/22/19 23:31 DC 02/22/19 23:44 50 MCG Fentanyl Citrate 50 mcg ONCE ONCE IVP 02/23/19 00:15 02/23/19 00:17 DC 02/23/19 00:19 50 MCG Iohexol 100 ml ONCE ONCE IV 02/23/19 01:00 02/23/19 01:01 DC 02/23/19 00:54 100 ML Ketorolac Tromethamine 30 mg ONCE ONCE IVP 02/23/19 02:30 02/23/19 02:31 DC 02/23/19 02:40 30 MG Ondansetron HCl 8 mg ONCE ONCE IVP 02/22/19 23:30 02/22/19 23:31 DC 02/22/19 23:43 8 MG Promethazine HCl 12.5 mg ONCE ONCE IVP 02/23/19 03:15 02/23/19 03:16 DC 02/23/19 03:26 12.5 MG Sodium Chloride 100 ml ONCE ONCE IV 02/23/19 01:00 02/23/19 01:01 DC 02/23/19 00:54 80 ML Sodium Chloride 1,000 ml @ 0 mls/hr Q0M ONCE IV 02/22/19 23:25 02/22/19 23:27 DC 02/22/19 23:43 999 MLS/HR Vital Signs/I&O 02/22/19 22:45 Temp 98.6 Pulse 101 Resp 18 B/P (MAP) 161/91 (114) Blood Pressure Mean: 114 Progress Progress Note : Progress Note Because of concern for possible bowel obstruction, CT scan was obtained. No bowel obstruction was identified but diverticulitis was. The plan was to treat the patient and discharge her for outpatient care. However, patient's symptoms were not under control well enough with the doses of fentanyl provided and nausea was not controlled well enough with medications admitted in the ER. Patient was requesting admission for supportive care including pain management and IV hydration. Treatment was started with Cipro in the ER. Diagnostic Imaging Diagonstic Imaging: CT Plain Films/CT/US/NM/MRI: abdomen, pelvis Comments CT abdomen and pelvis viewed by me and [facility] report reviewed. There is evidence of sigmoid diverticulitis as well as significant fecal debris in the large bowel. Diagonstic Imaging: Xray Plain Films/CT/US/NM/MRI: abdomen, pelvis Comments X-rays of the abdomen and pelvis were reviewed by me. Reports not available. There was some notable stool burden as well as questionable air-fluid levels prompting CT evaluation. Departure Communication (Admissions) Time/Spoke to Admitting Phy: 04:12 Dr. Pressley Time/Spoke to Consulting Phy: 04:15 Dr. Monte Impression Primary Impression: Diverticulitis of intestine Qualified Codes: K57.32 - Diverticulitis of large intestine without perforation or abscess without bleeding Additional Impressions: Generalized abdominal pain Nausea Disposition: 09 ADMITTED INPATIENT Condition: Improved Admissions Decision to Admit Reason: Admit from ER (General) Decision to Admit/Date: Feb 23, 2019 Time/Decision to Admit Time: 04:12 Departure-Patient Inst. Referrals: ANAID MOORE DO (PCP/Family) Primary Care Physician Scripts No Active Prescriptions or Reported Meds SHANA OBYD MD Feb 23, 2019 04:24
--- OUTSIDE RECORDS SUMMARY | 2019-02-23 04:36 | XMS REPORT ---
Author Author TIARRA MARY Organization [facility] Address [address] [place] [address] Care Team Providers Care Property Controller Name Role Phone MARY MAYEN Unavailable PROBLEMS Type Condition ICD9-CM Code XUY88-IV Code Onset Dates Condition Status SNOMED Code Problem Anxiety and depression F41.9 Active 452621322 Problem Elevated blood pressure I10 Active 30496517 Problem Multiple thyroid nodules E04.2 Active 724892701 Problem Lumbago with sciatica, unspecified side M54.40 Active 019036299 Problem Essential (primary) hypertension I10 Active 00461302 Problem History of thyroid nodule Z86.39 Active 496924064 Problem Degenerative arthritis of knee, bilateral M17.0 Active 138010711 Problem Slow transit constipation K59.01 Active 18006744 Problem Gastroesophageal reflux disease without esophagitis K21.9 Active 639242182 Problem Shortness of breath R06.02 Active 364114514 Problem Chest pain of uncertain etiology R07.89 Active 59349956 Problem Vitamin D deficiency E55.9 Active 78771120 Problem Dizziness R42 Active 425856635 ALLERGIES Substance Reaction Event Type Date Status Trazodone HCl headache Drug Allergy December, Active Tramadol HCl headache Drug Allergy December, Active Topamax Unknown Drug Allergy December, Active Sulfur anaphylaxis Drug Allergy December, Active Risperdal headache Drug Allergy December, Active SOCIAL HISTORY Never Assessed PLAN OF CARE Activity Details Follow Up 4 Weeks with Satish Thapa Reason:Abd pain VITAL SIGNS Height 64 in 2016-12-13 Weight 207 lbs 2016-12-13 Temperature 98.2 degrees Fahrenheit 2016-12-13 Heart Rate 76 bpm 2016-12-13 Respiratory Rate 18 2016-12-13 BMI 35.53 kg/m2 2016-12-13 Blood pressure systolic 134 mmHg 2016-12-13 Blood pressure diastolic 84 mmHg 2016-12-13 MEDICATIONS Medication Instructions Dosage Frequency Start Date End Date Duration Status Losartan Potassium 25 MG Orally Once a day 1 tablet 24h Active Pantoprazole Sodium 40 mg Orally Once a day 1 tablet 24h December, 30 day(s) Active Vitamin D 1000 UNIT Orally twice a day 1 tablet 12h Active Zanaflex 4 MG Orally 2 times a day 1 tablet as needed 12h Active RESULTS No Results PROCEDURES No Known procedures IMMUNIZATIONS No Known Immunizations MEDICAL (GENERAL) HISTORY Type Description Date Medical History Chronic Pain Medical History Hypertension Medical History chronic back pain-denies injury- MRI done 2 years ago Medical History chronic knee pain Surgical History knee surgery 02/2015 Surgical History complete hysterectomy 11/2010 Surgical History Left KNee surgery 06/2015 Hospitalization History high blood pressure x3 days 10/2014 Hospitalization History surgerys 02/2015 Hospitalization History blood pressure 08/10/15 Hospitalization History chest pain VC 10/2015
--- OUTSIDE RECORDS SUMMARY | 2019-02-23 04:36 | XMS REPORT | Clinical Summary ---
Author Author [facility] Organization [facility] Address Unknown Phone Unavailable Care Team Providers Care Phlebotomy Lab Assistant Name Role Phone Adelaida Alatorre Unavailable Unavailable No Pcp, Na PCP Unavailable Ry Soler MD Unavailable Source Comments Some departments are not documenting in the electronic medical record. If you d o not see the information that you expected, contact Release of Information in [facility] [employer] Information Management department at [phone] for further assistan ce in locating additional records.[facility] Allergies Comments Active Allergy Reactions Severity Noted Date Risperidone UNKNOWN Low 12/16/2015 Sulfa (Sulfonamide UNKNOWN Low 12/16/2015 Antibiotics) Topiramate UNKNOWN Low 12/16/2015 Tramadol UNKNOWN Low 12/16/2015 Medications End Date Status Medication Sig Dispensed Refills Start Date Active lisinopril (PRINIVIL; Take 20 mg by 0 ZESTRIL) 20 mg tablet mouth daily. Active ALPRAZolam (XANAX) 1 mg Take 1 mg by 0 tablet mouth four times daily. Active Problems Problem Noted Date Essential hypertension 12/16/2015 Chest pain 12/16/2015 Overview: 09/2015 C-non obstructive disease SOB (shortness of breath) 12/16/2015 Overview: 10/2015 PFT's Family History Medical History Relation Name Comments Coronary Artery Disease Father Heart Attack Father Coronary Artery Disease Mother Heart Attack Mother Cancer-Breast Sister Relation Name Status Comments Brother Alive Father Mother Sister Alive Sister Alive Sister Alive Sister Alive Sister Alive Social History Date Tobacco Use Types Packs/Day Years Used Never Smoker Smokeless Tobacco: Never Used Drinks/Week oz/Week Comments Alcohol Use No Sex Assigned at Date Recorded Not on file Industry Job Start Date Occupation Not on file Not on file Not on file Travel End Travel History Travel Start No recent travel history available. Last Filed Vital Signs Reading Time Taken Comments Vital Sign 136/88 12/18/2015 4:30 PM CDT Blood Pressure 89 12/18/2015 4:21 PM CDT Pulse - - Temperature - - Respiratory Rate 98% 12/18/2015 4:21 PM CDT Oxygen Saturation - - Inhaled Oxygen Concentration 98.4 kg (217 lb) 12/18/2015 4:21 PM CDT Weight 160 cm (5' 2.99") 12/18/2015 4:21 PM CDT Height 38.45 12/18/2015 4:21 PM CDT Body Mass Index Plan of Treatment Health Maintenance Due Date Last Done Comments PHYSICAL (COMPREHENSIVE) 1976 EXAM HIV SCREENING 1984 DTAP/TDAP VACCINES (1 - 1987 Tdap) CERVICAL CANCER SCREENING 1999 BREAST CANCER SCREENING 2009 INFLUENZA VACCINE 05/07/2019 Results Not on filefrom Last 3 Months Insurance Type Payer Benefit Subscriber ID Effective Phone Address Plan / Dates Group Medicare MEDICARE MEDICARE xxxxxxxxxx 2003-P PART A AND resent B Medicaid [facility] MEDICAID [facility] xxxxxxxxxxx 2015-P COMMUNITY resent PLAN [place] Advance Directives Patient Software Implementation Specialist Explanation Type Date Recorded Advance 12/11/2015 1:35 PM Directive/DPOA
--- OUTSIDE RECORDS SUMMARY | 2019-02-23 04:37 | XMS REPORT ---
Author Author MURPHYWILLIAM ShresthaELE Organization [facility] Address [address] [place] [address] Care Team Providers Care Retail Center Receptionist Name Role Phone CHA MURPHY Unavailable PROBLEMS Type Condition ICD9-CM Code SUR49-TD Code Onset Dates Condition Status SNOMED Code Problem Anxiety and depression F41.9 Active 713359869 Problem Elevated blood pressure I10 Active 90018877 Problem Multiple thyroid nodules E04.2 Active 317524926 Problem Lumbago with sciatica, unspecified side M54.40 Active 647539030 Problem Essential (primary) hypertension I10 Active 19093551 Problem History of thyroid nodule Z86.39 Active 230244730 Problem Degenerative arthritis of knee, bilateral M17.0 Active 462686705 Problem Slow transit constipation K59.01 Active 86184305 Problem Gastroesophageal reflux disease without esophagitis K21.9 Active 074833194 Problem Shortness of breath R06.02 Active 014460222 Problem Chest pain of uncertain etiology R07.89 Active 11523698 Problem Vitamin D deficiency E55.9 Active 15935793 Problem Dizziness R42 Active 212624684 ALLERGIES No Information ENCOUNTERS Encounter Location Date Diagnosis [facility] [id number] [place] [phone] 14 Jan, 2017 Elevated hemoglobin A1c R73.09 and Vitamin D deficiency E55.9 [facility] [address] [place] [phone] 13 Jan, 2017 [facility] [id number] [place] [phone] 12 Jan, 2017 Essential (primary) hypertension I10 ; History of thyroid nodule Z86.39 ; Elevated hemoglobin A1c R73.09 and Vitamin D deficiency E55.9 [facility] [address] [place] [address] Jan, Essential (primary) hypertension I10 ; History of thyroid nodule Z86.39 ; Elevated hemoglobin A1c R73.09 and Vitamin D deficiency E55.9 [facility] [id number] [place] [address] December, Gastroesophageal reflux disease without esophagitis K21.9 and Slow transit constipation K59.01 [place] [id number] [place] [address] December, Upper abdominal pain R10.10 [facility] [facility] [id number] [place] [address] Feb, Multiple thyroid nodules E04.2 [place] [address] [address] Jan, Multiple thyroid nodules E04.2 [facility] [place] [id number] [place] [phone] Jan, Dizziness R42 and Essential (primary) hypertension I10 [place] [id number] [place] [phone] Jan, [place] [address] [address] Jan, Generalized anxiety disorder F41.1 and Major depressive disorder F32.9 [facility] [id number] [place] [phone] Jan, Multiple thyroid nodules E04.2 [facility] [id number] [place] [phone] December, [place] [id number] [place] [phone] December, Chronic pain syndrome G89.4 and Gastroesophageal reflux disease without esophagitis K21.9 [facility] [id number] [place] [phone] Nov, Right upper quadrant pain R10.11 and History of hepatitis Z86.19 [place] [address] [address] Nov, [facility] [id number] [place] [address] Nov, [facility] [address] [id number] Nov, Encounter for dental examination Z01.20 [facility] [id number] [place] [phone] 15 Nov, 2015 Anxiety and depression F41.9 [facility] [id number] [place] [address] 12 Nov, 2015 Fatigue R53.83 [facility] [id number] [place] [phone] 11 Nov, 2015 Generalized anxiety disorder F41.1 and Major depressive disorder F32.9 [facility] [id number] [place] [phone] Oct, [facility] [id number] [place] [phone] 10 Oct, 2015 [facility] [id number] [place] [address] 02 Oct, 2015 [facility] [id number] [place] [address] 29 Sep, 2015 Acute maxillary sinusitis J01.00 and Sore throat J02.9 [facility] [id number] [place] [phone] Sep, [facility] [id number] [place] [address] 24 Sep, 2015 Headache R51 [facility] [id number] [place] [address] 17 Sep, 2015 Generalized anxiety disorder F41.1 and Major depressive disorder F32.9 [facility] [id number] [place] [address] 16 Sep, 2015 Shortness of breath R06.02 ; Essential (primary) hypertension I10 ; Anxiety and depression F41.9 and Lumbago with sciatica, unspecified side M54.40 [facility] [address] [place] [address] 10 Sep, 2015 [facility] [id number] [place] [address] 08 Sep, 2015 Essential (primary) hypertension I10 ; Chest pain of uncertain etiology R07.89 and Shortness of breath R06.02 [facility] [id number] [place] [address] 04 Sep, 2015 [place] [id number] [place] [address] 18 Aug, 2015 [place] [address] [address] 14 Aug, 2015 General medical exam Z00.00 ; Essential (primary) hypertension I10 ; Degenerative arthritis of knee, bilateral M17.0 ; History of thyroid nodule Z86.39 ; Anxiety F41.9 and Chronic pain G89.29 [facility] [id number] [place] [address] Aug, Yeast infection B37.9 ; Vaginal discharge N89.8 ; Routine screening for STI (sexually transmitted infection) Z11.3 ; Papanicolaou smear Z12.4 ; Headache R51 ; Elevated blood pressure I10 and Stress incontinence, female N39.3 [place] [id number] [place] [phone] Aug, [facility] [id number] [place] [address] Aug, Generalized anxiety disorder F41.1 and Major depressive disorder F32.9 [place] [id number] [place] [phone] Aug, [place] [id number] [place] [address] Aug, Intermittent chest pain R07.9 [facility] [address] [address] Aug, [facility] [address] [address] Jul, Vaginal discharge N89.8 ; Essential (primary) hypertension I10 and Lower abdominal pain R10.30 [facility] [address] [address] Jul, Multiple thyroid nodules E04.2 [place] [address] [address] Jul, [place] [address] [address] Jul, Lumbago with sciatica, unspecified side M54.40 [facility] [id number] [place] [address] 07 Jul, 2015 Pain R52 [place] [address] [address] Jul, Generalized anxiety disorder F41.1 and Major depressive disorder F32.9 [place] [id number] [place] [address] Jun, Degenerative arthritis of knee, bilateral M17.0 [facility] [id number] [place] [phone] Jun, [facility] [id number] [place] [address] Jun, Generalized anxiety disorder F41.1 and Major depressive disorder F32.9 [facility] [id number] [place] [phone] Jun, Abdominal pain R10.9 [facility] [address] [address] Jun, [facility] [address] [place] [phone] May, [facility] [id number] [place] [phone] May, [facility] [id number] [place] [address] May, [facility] [address] [address] May, [facility] [id number] [place] [phone] May, [facility] [id number] [place] [phone] May, Cough R05 [facility] [id number] [place] [address] 08 May, 2015 Degenerative arthritis of knee, bilateral M17.0 and Lumbago with sciatica, unspecified side M54.40 [facility] [id number] [place] [phone] 07 May, 2015 Chest discomfort R07.89 ; Cough R05 and Bronchiolitis J21.9 [facility] [id number] [place] [address] May, Schizoaffective disorder with good prognostic features F25.9 and Generalized anxiety disorder F41.1 [facility] [id number] [place] [address] May, Cold thyroid nodule E04.1 [facility] [id number] [place] [address] May, Thyroid nodule, cold E04.1 [facility] [id number] [place] [address] Apr, Allergic rhinitis 477.9 [facility] [address] [address] 25 Apr, 2015 Thyroid nodule 241.0 [place] [address] [phone] 24 Apr, 2015 History of thyroid nodule V12.29 [place] [address] [phone] 16 Apr, 2015 [place] [address] [place], [place] [phone] 14 Apr, 2015 Hypertension 401.9 ; Family history of diabetes mellitus V18.0 and Body aches 780.96 [place] [id number] [place] [address] 14 Apr, 2015 Fatigue 780.79 ; Anxiety and depression 300.00 ; Arthritis of both knees 716.96 ; History of thyroid nodule V12.29 ; Routine adult health maintenance V70.0 ; Breast cancer screening V76.10 and History of hypertension V12.59 [place] [address] [place] [address] 11 Apr, 2015 Fatigue 780.79 ; Anxiety and depression 300.00 ; Arthritis of both knees 716.96 ; History of thyroid nodule V12.29 ; Routine adult health maintenance V70.0 ; Breast cancer screening V76.10 and History of hypertension V12.59 [place] [address] [place] [address] 11 Apr, 2015 Anxiety state, unspecified 300.00 and No condition on Lynd II V71.09 IMMUNIZATIONS No Known Immunizations SOCIAL HISTORY Never Assessed REASON FOR VISIT US THYROID (Out of network) PLAN OF CARE VITAL SIGNS MEDICATIONS Unknown Medications RESULTS No Results PROCEDURES No Known procedures INSTRUCTIONS MEDICATIONS ADMINISTERED No Known Medications MEDICAL (GENERAL) HISTORY Type Description Date Medical [...]
--- OUTSIDE RECORDS SUMMARY | 2019-02-23 04:38 | XMS REPORT ---
Author Author WOODY DUGGAN [facility] Address [address] [place] [address] Care Team Providers Care Acid Strength Inspector Name Role Phone WOODY DUGGAN Unavailable PROBLEMS Type Condition ICD9-CM Code ZTV02-TB Code Onset Dates Condition Status SNOMED Code Problem Anxiety and depression F41.9 Active 160082633 Problem Elevated blood pressure I10 Active 35007403 Problem Multiple thyroid nodules E04.2 Active 544080240 Problem Lumbago with sciatica, unspecified side M54.40 Active 496313559 Problem Essential (primary) hypertension I10 Active 11676786 Problem History of thyroid nodule Z86.39 Active 523419155 Problem Degenerative arthritis of knee, bilateral M17.0 Active 370932414 Problem Slow transit constipation K59.01 Active 46562558 Problem Gastroesophageal reflux disease without esophagitis K21.9 Active 746605756 Problem Shortness of breath R06.02 Active 983940089 Problem Chest pain of uncertain etiology R07.89 Active 16126918 Problem Vitamin D deficiency E55.9 Active 53914067 Problem Dizziness R42 Active 728854907 ALLERGIES Substance Reaction Event Type Date Status Trazodone HCl headache Drug Allergy December, Active Tramadol HCl headache Drug Allergy December, Active Topamax Unknown Drug Allergy December, Active Sulfur anaphylaxis Drug Allergy December, Active Risperdal headache Drug Allergy December, Active SOCIAL HISTORY Never Assessed PLAN OF CARE Activity Details Follow Up prn Reason: VITAL SIGNS Height 64 in 2016-12-22 Weight 207.2 lbs 2016-12-22 Temperature 98.5 degrees Fahrenheit 2016-12-22 Heart Rate 74 bpm 2016-12-22 Respiratory Rate 20 2016-12-22 BMI 35.56 kg/m2 2016-12-22 Blood pressure systolic 118 mmHg 2016-12-22 Blood pressure diastolic 76 mmHg 2016-12-22 MEDICATIONS Medication Instructions Dosage Frequency Start Date End Date Duration Status Losartan Potassium 25 MG Orally Once a day 1 tablet 24h Active Ranitidine HCl 75 MG Orally Twice a day 1 tablet as needed 12h December, 30 days Active Vitamin D 1000 UNIT Orally twice a day 1 tablet 12h Active Zanaflex 4 MG Orally 2 times a day 1 tablet as needed 12h Active Pantoprazole Sodium 40 mg Orally Once a day 1 tablet 24h December, 30 day(s) Active Docusate Sodium 100 MG Orally twice a day 1 capsule as needed 12h December, Jan, 30 day(s) Active RESULTS No Results PROCEDURES No Known [...]
--- OUTSIDE RECORDS SUMMARY | 2019-02-23 04:44 | XMS REPORT | Continuity of Care Document ---
Author Organization Unknown Address Unknown Allergies Active Description Code Type Severity Reaction Onset Reported/Identified Relationship to Patient Clinical Status Yes GABAPENTIN [id number] Drug Allergy N/A N/A Yes RISPERIDONE [id number] Drug Allergy N/A N/A Yes SULFAR Drug Allergy N/A N/A Yes TOPAMAX [id number] Drug Allergy N/A N/A Yes TRAMADOL HCL 59164 Drug Allergy N/A N/A Yes TRAZODONE HCL [id number] Drug Allergy N/A N/A Yes ADHESIVE TAPE Drug Allergy N/A N/A Yes GABAPENTIN [id number] Drug Allergy N/A N/A Yes RISPERDAL [id number] Drug Allergy N/A N/A Yes SULFA Drug Allergy N/A N/A Yes TOPAMAX [id number] Drug Allergy N/A N/A Yes TRAMADOL(HEADACHES AND NAUSEA) Drug Allergy N/A N/A Yes Sulfa (Sulfonamide Antibiotics) [id number] Drug Allergy Unknown N/A 04/22/2015 Yes tramadol [id number] Drug Allergy Unknown N/A 04/22/2015 Yes SILK TAPE SILK TAPE Unknown N/A 05/22/2015 Yes topiramate [id number] Drug Allergy Unknown N/A 05/22/2015 Medications Medication Packaging Start Date Stop Date Route Dosage Sig TYLENOL WITH CODEINE #3 ORAL 03/05/2014 04/04/2014 ORAL 6060 every 6 hours LISINOPRIL-HYDROCHLOROTHIAZIDE ORAL 03/05/2014 04/24/2014 ORAL 3030 daily OMEPRAZOLE ORAL 03/17/2014 04/16/2014 ORAL 3030 daily BUSPIRONE HCL ORAL 03/25/2014 04/24/2014 ORAL 3030 at bedtime FLONASE Nasal 04/01/2014 05/01/2014 Nasal 6060 daily ZOFRAN ODT ORAL 04/24/2014 05/01/2014 ORAL 2121 3 times a day LISINOPRIL ORAL 04/24/2014 05/24/2014 ORAL 3030 daily CIPRO ORAL 04/24/2014 05/04/2014 ORAL 2020 twice daily METOCLOPRAMIDE HCL ORAL 04/28/2014 05/28/2014 ORAL 6060 twice daily LIDOCAINE External 05/22/2014 06/21/2014 External 3030 daily LISINOPRIL ORAL 05/23/2014 03/11/2016 ORAL 3030 daily PROTONIX ORAL 06/23/2014 07/23/2014 ORAL 3030 daily MECLIZINE HCL ORAL 06/23/2014 06/28/2014 ORAL 2020 every 6 hours XANAX ORAL 02/17/2016 02/27/2016 ORAL 3030 3 times a day NORCO ORAL 02/17/2016 03/10/2016 ORAL 4040 every 6 hours HYDROCHLOROTHIAZIDE ORAL 02/17/2016 03/11/2016 ORAL 1515 daily MELOXICAM ORAL 02/29/2016 03/11/2016 ORAL 3030 daily OXYCODONE HCL ORAL 03/02/2016 03/12/2016 ORAL 4040 every 6 hours MEDROL ORAL 03/02/2016 03/07/2016 ORAL 2121 as directed MEDROL ORAL 03/11/2016 03/16/2016 ORAL 2121 as directed LISINOPRIL-HYDROCHLOROTHIAZIDE ORAL 03/11/2016 ORAL 3030 daily in am NORCO ORAL 03/21/2016 04/18/2016 ORAL 6060 twice daily NORCO ORAL 04/18/2016 05/02/2016 ORAL 4242 three times daily MEDROL ORAL 04/18/2016 04/23/2016 ORAL 2121 as directed CYCLOBENZAPRINE HCL ORAL 04/18/2016 04/28/2016 ORAL 3030 3 times a day Problems Date Dx Coded Attending Type Code Diagnosis Diagnosed By 04/22/2015 VALENTIN ARMENDARIZ MD Ot 784.0 HEADACHE 04/22/2015 VALENTIN ARMENDARIZ MD Ot 789.00 ABDOMINAL PAIN, UNSPECIFIED SITE 05/06/2015 WILLY HAMPTON DO Ot 466.0 ACUTE BRONCHITIS 05/06/2015 WILLY HAMPTON DO Ot 724.5 BACKACHE NOS 05/06/2015 WILLY HAMPTON DO Ot 786.2 COUGH 05/22/2015 Ot J40 BRONCHITIS, NOT SPECIFIED ACUTE OR CH 05/22/2015 Ot R05 COUGH 05/22/2015 Ot R51 HEADACHE 06/01/2015 SIMON WONG APRN Ot 241.0 06/11/2015 SIMON WONG DRILLER'S ASSISTANT Ot 241.0 06/23/2015 KATIE TRAN DOA K Ot E04.1 06/29/2015 SIMON WONG DRILLER'S ASSISTANT Ot 241.0 06/29/2015 SIMON WONG DRILLER'S ASSISTANT Ot V76.12 06/29/2015 SIMON WONG DRILLER'S ASSISTANT Ot 241.0 06/29/2015 KATIE TRAN DOA K Ot E04.1 06/30/2015 MARC KAY CYNTHIA K Ot E04.1 07/10/2015 SIMON WONG DRILLER'S ASSISTANT Ot 241.0 07/10/2015 SIMON WONG DRILLER'S ASSISTANT Ot V76.12 07/22/2015 SIMON WONG DRILLER'S ASSISTANT Ot 241.0 07/22/2015 SIMON WONG DRILLER'S ASSISTANT Ot V76.12 08/11/2015 JESSICA GARCIA MD Ot E11.9 TYPE 2 DIABETES MELLITUS WITHOUT COMPLIC 08/11/2015 JESSICA GARCIA MD Ot E66.9 OBESITY, UNSPECIFIED 08/11/2015 JESSICA GARCIA MD Ot E78.1 PURE HYPERGLYCERIDEMIA 08/11/2015 JESSICA GARCIA MD Ot E78.5 HYPERLIPIDEMIA, UNSPECIFIED 08/11/2015 JESSICA GARCIA MD Ot I10 ESSENTIAL (PRIMARY) HYPERTENSION 08/11/2015 JESSICA GARCIA MD Ot R06.00 DYSPNEA, UNSPECIFIED 08/11/2015 JESSICA GARCIA MD Ot R07.9 CHEST PAIN, UNSPECIFIED 08/11/2015 JESSICA GARCIA MD Ot Z68.39 BODY MASS INDEX (BMI) 39.0-39.9, ADULT 08/19/2015 MEMO KAY WILLY K Ot I10 ESSENTIAL (PRIMARY) HYPERTENSION 08/19/2015 MEMO KAY WILLY K Ot R07.89 OTHER CHEST PAIN 08/19/2015 MEMO KAY WILLY K Ot Z79.899 OTHER JAIL (CURRENT) DRUG THERAPY 09/15/2015 ARELIS DESIR MD Ot E66.01 MORBID (SEVERE) OBESITY DUE TO EXCESS CA 09/15/2015 ARELIS DESIR MD Ot E78.5 HYPERLIPIDEMIA, UNSPECIFIED 09/15/2015 ARELIS DESIR MD Ot F25.9 SCHIZOAFFECTIVE DISORDER, UNSPECIFIED 09/15/2015 ARELIS DESIR MD Ot F41.8 OTHER SPECIFIED ANXIETY DISORDERS 09/15/2015 ARELIS DESIR MD Ot G47.00 INSOMNIA, UNSPECIFIED 09/15/2015 ARELIS DESIR MD Ot G89.29 OTHER CHRONIC PAIN 09/15/2015 ARELIS DESIR MD Ot I10 ESSENTIAL (PRIMARY) HYPERTENSION 09/15/2015 ARELIS DESIR MD Ot I25.10 ATHSCL HEART DISEASE OF [place] CORONARY 09/15/2015 ARELIS DESIR MD Ot K21.9 GASTRO-ESOPHAGEAL REFLUX DISEASE WITHOUT 09/15/2015 ARELIS DESIR MD Ot R06.00 DYSPNEA, UNSPECIFIED 09/15/2015 ARELIS DESIR MD Ot R07.89 OTHER CHEST PAIN 09/15/2015 ARELIS DESIR MD Ot Z68.38 BODY MASS INDEX (BMI) 38.0-38.9, ADULT 09/15/2015 ARELIS DESIR MD Ot Z79.899 OTHER STAFF DEVELOPER (CURRENT) DRUG THERAPY 09/15/2015 ARELIS DESIR MD Ot Z82.49 FAMILY HX OF [place] HEART DIS AND OTH DI 09/30/2015 SIMON WONG DRILLER'S ASSISTANT Ot 241.0 09/30/2015 SIMON WONG DRILLER'S ASSISTANT Ot V76.12 09/30/2015 SIMON WONG DRILLER'S ASSISTANT Ot 241.0 09/30/2015 MARC DOCYNTHIA Ot E04.1 10/16/2015 JEANNINE JULIAN, SARAH Ahumada Ot R07.89 OTHER CHEST PAIN 10/18/2015 JESÚS LÓPEZ MD Ot E11.9 TYPE 2 DIABETES MELLITUS WITHOUT COMPLIC 10/18/2015 JESÚS LÓPEZ MD Ot I10 ESSENTIAL (PRIMARY) HYPERTENSION 10/18/2015 JESÚS LÓPEZ MD Ot R07.89 OTHER CHEST PAIN 10/18/2015 JESÚS LÓPEZ MD Ot R10.84 GENERALIZED ABDOMINAL PAIN 10/18/2015 JESÚS LÓPEZ MD Ot R11.2 NAUSEA WITH VOMITING, UNSPECIFIED 10/18/2015 BHARTI LÓPEZ MDEL J Ot R51 HEADACHE 10/18/2015 RENE JULIAN, JESÚS Kirby Ot Z23 ENCOUNTER FOR IMMUNIZATION 10/19/2015 JEANNINE JULIAN, SARAH Ahumada Ot R07.89 10/22/2015 ZAYDA ABREU DO Ot I51.7 10/22/2015 ZAYDA ABREU DO Ot R06.02 10/29/2015 ZAYDA ABREU DO Ot E66.9 10/29/2015 ZAYDA ABREU DO Ot R06.00 10/30/2015 ZAYDA ABREU DO Ot G47.33 OBSTRUCTIVE SLEEP APNEA (ADULT) (PEDIATR 11/02/2015 ZAYDA ABREU DO Ot I51.7 11/02/2015 ZAYDA ABREU DO Ot R06.02 11/09/2015 Ot M79.661 11/09/2015 Ot M79.662 11/09/2015 Ot R05 11/09/2015 Ot R06.02 11/17/2015 ZAYDA ABREU DO Ot E66.9 11/17/2015 ZAYDA ABREU DO Ot R06.00 11/25/2015 ZAYDA ABREU DO Ot E66.9 OBESITY, UNSPECIFIED 11/25/2015 ZAYDA ABERU DO Ot R06.00 DYSPNEA, UNSPECIFIED 11/27/2015 Ot M79.661 PAIN IN RIGHT LOWER LEG 11/27/2015 Ot M79.662 PAIN IN LEFT LOWER LEG 11/27/2015 Ot R05 COUGH 11/27/2015 Ot R06.02 SHORTNESS OF BREATH 11/30/2015 JORDIN JULIAN, ERIKA Kirby Ot M51.36 OTHER INTERVERTEBRAL DISC DEGENERATION, 11/30/2015 SIMON WONG APRN Ot 241.0 NONTOX UNINODULAR GOITER 11/30/2015 SIMON WONG APRN Ot V76.12 OT SCREEN MAMMO-MALIGN NEOPLASM OF [place] 11/30/2015 SIMON WONG DRILLER'S ASSISTANT Ot 241.0 NONTOX UNINODULAR GOITER 11/30/2015 CYNTHIA TRAN DO Ot E04.1 NONTOXIC SINGLE THYROID NODULE 11/30/2015 ZAYDA ABREU DO Ot E66.9 OBESITY, UNSPECIFIED 11/30/2015 ZAYDA ABREU DO Ot R06.00 DYSPNEA, UNSPECIFIED 11/30/2015 ZAYDA ABREU DO Ot I51.7 CARDIOMEGALY 11/30/2015 ZAYDA ABREU DO Ot R06.02 SHORTNESS OF BREATH 11/30/2015 Ot M79.661 PAIN IN RIGHT LOWER LEG 11/30/2015 Ot M79.662 PAIN IN LEFT LOWER LEG 11/30/2015 Ot R05 COUGH 11/30/2015 Ot R06.02 SHORTNESS OF BREATH 11/30/2015 JORDIN JULIAN, ERIKA Kirby Ot M51.36 OTHER INTERVERTEBRAL DISC DEGENERATION, 11/30/2015 SANGEETA JULIAN, LILIAN Willams Ot K57.90 DVRTCLOS OF INTEST, PART UNSP, W/O PERF 11/30/2015 LILIAN RUTHERFORD MD Ot R10.11 RIGHT UPPER QUADRANT PAIN 12/02/2015 LILIAN RUTHERFORD MD, Ot K57.90 DVRTCLOS OF INTEST, PART UNSP, W/O PERF 12/02/2015 LILIAN RUTHERFORD MD Ot R10.11 RIGHT UPPER QUADRANT PAIN 12/03/2015 [place] JESSIE KAY Ot R10.13 EPIGASTRIC PAIN 12/03/2015 DEE JESSIE KAY Ot Z01.818 ENCOUNTER FOR OTHER PREPROCEDURAL EXAMIN 12/03/2015 CHA MURPHY APRN Ot R10.11 RIGHT UPPER QUADRANT PAIN 12/04/2015 [place] JESSIE KAY Ot R10.13 EPIGASTRIC PAIN 12/04/2015 DEE JESSIE KAY Ot Z01.818 ENCOUNTER FOR OTHER PREPROCEDURAL EXAMIN 12/08/2015 DEE JESSIE KAY Ot K29.70 GASTRITIS, UNSPECIFIED, WITHOUT BLEEDING 12/08/2015 DEE JESSIE KAY Ot K44.9 DIAPHRAGMATIC HERNIA WITHOUT OBSTRUCTION 12/12/2015 SIMON WONG DRILLER'S ASSISTANT Ot 241.0 NONTOX UNINODULAR GOITER 12/12/2015 SIMON WONG DRILLER'S ASSISTANT Ot V76.12 OTH SCREEN MAMMO-MALIGN NEOPLASM OF [place] 12/12/2015 SIMON WONG DRILLER'S ASSISTANT Ot 241.0 NONTOX UNINODULAR GOITER 12/12/2015 TRAN DO, CYNTHIA K Ot E04.1 NONTOXIC SINGLE THYROID NODULE 12/12/2015 ZAYDA ABREU DO Ot E66.9 OBESITY, UNSPECIFIED 12/12/2015 ZAYDA ABREU DO Ot R06.00 DYSPNEA, UNSPECIFIED 12/12/2015 ZAYDA ABREU DO Ot I51.7 CARDIOMEGALY 12/12/2015 ZAYDA ABREU DO Ot R06.02 SHORTNESS OF BREATH 12/12/2015 Ot M79.661 PAIN IN RIGHT LOWER LEG 12/12/2015 Ot M79.662 PAIN IN LEFT LOWER LEG 12/12/2015 Ot R05 COUGH 12/12/2015 Ot R06.02 SHORTNESS OF BREATH 12/12/2015 JORDIN JULIAN, ERIKA Kirby Ot M51.36 OTHER INTERVERTEBRAL DISC DEGENERATION, 12/12/2015 CHA MURPHY DRILLER'S ASSISTANT Ot R10.11 RIGHT UPPER QUADRANT PAIN 12/12/2015 DEB JULIAN, SHANA T Ot I10 ESSENTIAL (PRIMARY) HYPERTENSION 12/12/2015 DEB JULIAN, SHANA T Ot M54.16 RADICULOPATHY, LUMBAR REGION 12/12/2015 DEB JULIAN, SHANA T Ot R07.89 OTHER CHEST PAIN 12/14/2015 DEB JULIAN, SHANA T Ot I10 ESSENTIAL (PRIMARY) HYPERTENSION 12/14/2015 DEB JULIAN, SHANA T Ot M54.16 RADICULOPATHY, LUMBAR REGION 12/14/2015 DEB JULIAN, SHANA T Ot R07.89 OTHER CHEST PAIN 12/17/2015 JORDIN JULIAN, ERIKA Kirby Ot M51.36 OTHER INTERVERTEBRAL DISC DEGENERATION, 12/23/2015 CHA MURPHY DRILLER'S ASSISTANT Ot R10.11 RIGHT UPPER QUADRANT PAIN 12/25/2015 NIESHA VILLARREAL APRN Ot 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 12/28/2015 DELANEY JULIAN, HEENA Walters Ot M48.02 SPINAL STENOSIS, CERVICAL REGION 12/29/2015 NIESHA VILLARREAL DRILLER'S ASSISTANT Ot 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 12/29/2015 NIESHA VILLARREAL APRN Ot 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 12/29/2015 Ot M79.661 PAIN IN RIGHT LOWER LEG 12/29/2015 Ot M79.662 PAIN IN LEFT LOWER LEG 12/29/2015 Ot R05 COUGH 12/29/2015 Ot R06.02 SHORTNESS OF BREATH 12/29/2015 CHA MURPHY DRILLER'S ASSISTANT Ot R10.11 RIGHT UPPER QUADRANT PAIN 12/31/2015 DELANEY JULIAN, HEENA Walters Ot M48.02 SPINAL STENOSIS, CERVICAL REGION 01/01/2016 JORDIN JULIAN, ERIKA Kirby Ot M51.36 OTHER INTERVERTEBRAL DISC DEGENERATION, 01/19/2016 Ot M54.2 CERVICALGIA 01/20/2016 Ot M54.2 CERVICALGIA 01/20/2016 Ot R20.0 ANESTHESIA OF SKIN 01/20/2016 Ot M54.2 CERVICALGIA 01/20/2016 Ot R20.0 ANESTHESIA OF SKIN 01/21/2016 CHA MURPHY DRILLER'S ASSISTANT Ot E04.2 NONTOXIC MULTINODULAR GOITER 01/22/2016 CHA MURPHY DRILLER'S ASSISTANT Ot E04.2 NONTOXIC MULTINODULAR GOITER 01/22/2016 MEMO DO, WILLY K Ot I10 ESSENTIAL (PRIMARY) HYPERTENSION 01/22/2016 MEMO DO, WILLY K Ot R53.1 WEAKNESS 01/22/2016 MEMO DO, WILLY K Ot Z79.899 OTHER JAIL (CURRENT) DRUG THERAPY 01/25/2016 MEMO DO, WILLY K Ot I10 ESSENTIAL (PRIMARY) HYPERTENSION 01/25/2016 MEMO DO, WILLY K Ot R53.1 WEAKNESS 01/25/2016 MEMO DO, WILLY K Ot Z79.899 OTHER JAIL (CURRENT) DRUG THERAPY 02/08/2016 CHA MURPHY DRILLER'S ASSISTANT Ot E04.2 NONTOXIC MULTINODULAR GOITER 02/08/2016 CHA MURPHY DRILLER'S ASSISTANT Ot E04.2 NONTOXIC MULTINODULAR GOITER 02/09/2016 CHA MURPHY DRILLER'S ASSISTANT Ot E04.2 NONTOXIC MULTINODULAR GOITER 02/10/2016 Ot M54.2 CERVICALGIA 02/10/2016 Ot R20.0 ANESTHESIA OF SKIN 02/10/2016 CHA MURPHY DRILLER'S ASSISTANT Ot E04.2 NONTOXIC MULTINODULAR GOITER 02/18/2016 CHA MURPHY DRILLER'S ASSISTANT Ot E04.2 NONTOXIC MULTINODULAR GOITER 02/25/2016 CHA MURPHY DRILLER'S ASSISTANT Ot E04.2 NONTOXIC MULTINODULAR GOITER 02/29/2016 Ot M54.2 CERVICALGIA 02/29/2016 Ot R20.0 ANESTHESIA OF SKIN 03/14/2016 CHA MURPHY DRILLER'S ASSISTANT Ot E04.2 NONTOXIC MULTINODULAR GOITER 12/01/2016 SIMON WONG APRN Ot 241.0 NONTOX UNINODULAR GOITER 12/01/2016 SIMON WONG APRN Ot V76.12 OTH SCREEN MAMMO-MALIGN NEOPLASM OF [place] 12/01/2016 SIMON WONG APRN Ot 241.0 NONTOX UNINODULAR GOITER 12/01/2016 MARC KAY CYNTHIA Alcazar Ot E04.1 NONTOXIC SINGLE THYROID NODULE 12/01/2016 ZAYDA ABREU DO Ot E66.9 OBESITY, UNSPECIFIED 12/01/2016 ZAYDA ABREU DO Ot R06.00 DYSPNEA, UNSPECIFIED 12/01/2016 ZAYDA ABREU DO Ot I51.7 CARDIOMEGALY 12/01/2016 ZAYDA ABREU DO Ot R06.02 SHORTNESS OF BREATH 12/01/2016 Ot M79.661 PAIN IN RIGHT LOWER LEG 12/01/2016 Ot M79.662 PAIN IN LEFT LOWER LEG 12/01/2016 Ot R05 COUGH 12/01/2016 Ot R06.02 SHORTNESS OF BREATH 12/01/2016 JORDIN JULIAN, ERIKA Kirby Ot M51.36 OTHER INTERVERTEBRAL DISC DEGENERATION, 12/01/2016 CHA MURPHY DRILLER'S ASSISTANT Ot R10.11 RIGHT UPPER QUADRANT PAIN 12/01/2016 DELANEY JULIAN, HEENA Walters Ot M48.02 SPINAL STENOSIS, CERVICAL REGION 12/01/2016 Ot M54.2 CERVICALGIA 12/01/2016 Ot R20.0 ANESTHESIA OF SKIN 12/01/2016 CHA MURPHY DRILLER'S ASSISTANT Ot E04.2 NONTOXIC MULTINODULAR GOITER 12/01/2016 CHA MURPHY DRILLER'S ASSISTANT Ot E04.2 NONTOXIC MULTINODULAR GOITER 12/01/2016 SIMON WONG APRN Ot 241.0 NONTOX UNINODULAR GOITER 12/01/2016 SIMON WONG APRN Ot V76.12 OTH SCREEN MAMMO-MALIGN NEOPLASM OF [place] 12/01/2016 SIMON WONG DRILLER'S ASSISTANT Ot 241.0 NONTOX UNINODULAR GOITER 12/01/2016 TRAN CYNTHIA KAY Ot E04.1 NONTOXIC SINGLE THYROID NODULE 12/01/2016 LOIS KAY ZAYDA Angel Ot E66.9 OBESITY, UNSPECIFIED 12/01/2016 LOIS KAY ZAYDA Angel Ot R06.00 DYSPNEA, UNSPECIFIED 12/01/2016 LOIS KAY ZAYDA Angel Ot I51.7 CARDIOMEGALY 12/01/2016 LOIS KAY ZAYDA Angel Ot R06.02 SHORTNESS OF BREATH 12/01/2016 Ot M79.661 PAIN IN RIGHT LOWER LEG 12/01/2016 Ot M79.662 PAIN IN LEFT LOWER LEG 12/01/2016 Ot R05 COUGH 12/01/2016 Ot R06.02 SHORTNESS OF BREATH 12/01/2016 JORDIN JULIAN, ERIKA Kirby Ot M51.36 OTHER INTERVERTEBRAL DISC DEGENERATION, 12/01/2016 CHA MURPHY DRILLER'S ASSISTANT Ot R10.11 RIGHT UPPER QUADRANT PAIN 12/01/2016 DELANEY JULIAN, HEENA Walters Ot M48.02 SPINAL STENOSIS, CERVICAL REGION 12/01/2016 Ot M54.2 CERVICALGIA 12/01/2016 Ot R20.0 ANESTHESIA OF SKIN 12/01/2016 CHA MURPHY DRILLER'S ASSISTANT Ot E04.2 NONTOXIC MULTINODULAR GOITER 12/01/2016 CHA MURPHY APRN Ot E04.2 NONTOXIC MULTINODULAR GOITER 12/01/2016 LILIAN RUTHERFORD MD Ot E11.9 TYPE 2 DIABETES MELLITUS WITHOUT COMPLIC 12/01/2016 LILIAN RUTHERFORD MD Ot I10 ESSENTIAL (PRIMARY) HYPERTENSION 12/01/2016 LILIAN RUTHERFORD MD Ot K57.30 DVRTCLOS OF LG INT W/O PERFORATION OR AB 12/01/2016 LILIAN RUTHERFORD MD Ot R10.30 LOWER ABDOMINAL PAIN, UNSPECIFIED 12/01/2016 LILIAN RUTHERFORD MD Ot Z79.899 OTHER JAIL (CURRENT) DRUG THERAPY 12/01/2016 LILIAN RUTHERFORD MD Ot Z90.710 ACQUIRED ABSENCE OF BOTH CERVIX AND UTER 12/01/2016 SIMON WONG DRILLER'S ASSISTANT Ot 241.0 NONTOX UNINODULAR GOITER 12/01/2016 SIMON WONG DRILLER'S ASSISTANT Ot V76.12 OTH SCREEN MAMMO-MALIGN NEOPLASM OF [place] 12/01/2016 SIMON WONG DRILLER'S ASSISTANT Ot 241.0 NONTOX UNINODULAR GOITER 12/01/2016 CYNTHIA TRAN DO Ot E04.1 NONTOXIC SINGLE THYROID NODULE 12/01/2016 ZAYDA ABREU DO Ot E66.9 OBESITY, UNSPECIFIED 12/01/2016 ZAYDA ABREU DO Ot R06.00 DYSPNEA, UNSPECIFIED 12/01/2016 ZAYDA ABREU DO Ot I51.7 CARDIOMEGALY 12/01/2016 ZAYDA ABREU DO Ot R06.02 SHORTNESS OF BREATH 12/01/2016 Ot M79.661 PAIN IN RIGHT LOWER LEG 12/01/2016 Ot M79.662 PAIN IN LEFT LOWER LEG 12/01/2016 Ot R05 COUGH 12/01/2016 Ot R06.02 SHORTNESS OF BREATH 12/01/2016 JORDIN JULIAN, ERIKA Kirby Ot M51.36 OTHER INTERVERTEBRAL DISC DEGENERATION, 12/01/2016 CHA MURPHY DRILLER'S ASSISTANT Ot R10.11 RIGHT UPPER QUADRANT PAIN 12/01/2016 DELANEY JULIAN, HEENA Walters Ot M48.02 SPINAL STENOSIS, CERVICAL REGION 12/01/2016 Ot M54.2 CERVICALGIA 12/01/2016 Ot R20.0 ANESTHESIA OF SKIN 12/01/2016 CHA MURPHY DRILLER'S ASSISTANT Ot E04.2 NONTOXIC MULTINODULAR GOITER 12/01/2016 CHA MURPHY DRILLER'S ASSISTANT Ot E04.2 NONTOXIC MULTINODULAR GOITER 12/29/2016 JESSIE DEE DO Ot R10.11 RIGHT UPPER QUADRANT PAIN 12/29/2016 JESSIE DEE DO Ot R10.13 EPIGASTRIC PAIN 12/29/2016 JESSIE DEE DO Ot Z01.818 ENCOUNTER FOR OTHER PREPROCEDURAL EXAMIN 12/30/2016 SIMON WONG DRILLER'S ASSISTANT Ot 241.0 NONTOX UNINODULAR GOITER 12/30/2016 SIMON WONG DRILLER'S ASSISTANT Ot V76.12 OTH SCREEN MAMMO-MALIGN NEOPLASM OF [place] 12/30/2016 SIMON WONG DRILLER'S ASSISTANT Ot 241.0 NONTOX UNINODULAR GOITER 12/30/2016 CYNTHIA TRAN DO Ot E04.1 NONTOXIC SINGLE THYROID NODULE 12/30/2016 ZAYDA ABREU DO Ot E66.9 OBESITY, UNSPECIFIED 12/30/2016 ZAYDA ABREU DO Ot R06.00 DYSPNEA, UNSPECIFIED 12/30/2016 ZAYDA ABREU DO Ot I51.7 CARDIOMEGALY 12/30/2016 ZAYDA ABREU DO Ot R06.02 SHORTNESS OF BREATH 12/30/2016 Ot M79.661 PAIN IN RIGHT LOWER LEG 12/30/2016 Ot M79.662 PAIN IN LEFT LOWER LEG 12/30/2016 Ot R05 COUGH 12/30/2016 Ot R06.02 SHORTNESS OF BREATH 12/30/2016 JORDIN JULIAN, ERIKA Kirby Ot M51.36 OTHER INTERVERTEBRAL DISC DEGENERATION, 12/30/2016 CHA MURPHY DRILLER'S ASSISTANT Ot R10.11 RIGHT UPPER QUADRANT PAIN 12/30/2016 DELANEY JULIAN, HEENA Walters Ot M48.02 SPINAL STENOSIS, CERVICAL REGION 12/30/2016 Ot M54.2 CERVICALGIA 12/30/2016 Ot R20.0 ANESTHESIA OF SKIN 12/30/2016 CHA MURPHY DRILLER'S ASSISTANT Ot E04.2 NONTOXIC MULTINODULAR GOITER 12/30/2016 CHA MURPHY DRILLER'S ASSISTANT Ot E04.2 NONTOXIC MULTINODULAR GOITER 12/30/2016 SIMON WONG DRILLER'S ASSISTANT Ot 241.0 NONTOX UNINODULAR GOITER 12/30/2016 SIMON WONG DRILLER'S ASSISTANT Ot V76.12 OTH SCREEN MAMMO-MALIGN NEOPLASM OF [place] 12/30/2016 SIMON WONG DRILLER'S ASSISTANT Ot 241.0 NONTOX UNINODULAR GOITER 12/30/2016 CYNTHIA TRAN DO Ot E04.1 NONTOXIC SINGLE THYROID NODULE 12/30/2016 ZAYDA ABREU DO Ot E66.9 OBESITY, UNSPECIFIED 12/30/2016 ZAYDA ABREU DO Ot R06.00 DYSPNEA, UNSPECIFIED 12/30/2016 ZAYDA ABREU DO Ot I51.7 CARDIOMEGALY 12/30/2016 ZAYDA ABREU DO Ot R06.02 SHORTNESS OF BREATH 12/30/2016 Ot M79.661 PAIN IN RIGHT LOWER LEG 12/30/2016 Ot M79.662 PAIN IN LEFT LOWER LEG 12/30/2016 Ot R05 COUGH 12/30/2016 Ot R06.02 SHORTNESS OF BREATH 12/30/2016 JORDIN JULIAN, ERIKA Kirby Ot M51.36 OTHER INTERVERTEBRAL DISC DEGENERATION, 12/30/2016 CHA MURPHY APRN Ot R10.11 RIGHT UPPER QUADRANT PAIN 12/30/2016 DELANEY JULIAN, HEENA Walters Ot M48.02 SPINAL STENOSIS, CERVICAL REGION 12/30/2016 Ot M54.2 CERVICALGIA 12/30/2016 Ot R20.0 ANESTHESIA OF SKIN 12/30/2016 CHA MURPHY APRN Ot E04.2 NONTOXIC MULTINODULAR GOITER 12/30/2016 CHA MURPHY APRN Ot E04.2 NONTOXIC MULTINODULAR GOITER 01/03/2017 JESSIE DEE DO Ot E11.9 TYPE 2 DIABETES MELLITUS WITHOUT COMPLIC 01/03/2017 JESSIE DEE DO Ot E66.01 MORBID (SEVERE) OBESITY DUE TO EXCESS CA 01/03/2017 JESSIE DEE DO Ot G47.33 OBSTRUCTIVE SLEEP APNEA (ADULT) (PEDIATR 01/03/2017 JESSIE DEE DO Ot I08.3 COMB RHEUMATIC DISORD OF MITRAL, AORTIC 01/03/2017 JESSIE DEE DO Ot I10 ESSENTIAL (PRIMARY) HYPERTENSION 01/03/2017 JESSIE DEE DO Ot K29.70 GASTRITIS, UNSPECIFIED, WITHOUT BLEEDING 01/03/2017 JESSIE DEE DO Ot K44.9 DIAPHRAGMATIC HERNIA WITHOUT OBSTRUCTION 01/03/2017 JESSIE DEE DO Ot Z68.37 BODY MASS INDEX (BMI) 37.0-37.9, ADULT 01/03/2017 JESSIE DEE DO Ot Z79.899 OTHER JAIL (CURRENT) DRUG THERAPY 01/03/2017 SIMON WONG APRN Ot 241.0 NONTOX UNINODULAR GOITER 01/03/2017 SIMON WONG APRN Ot V76.12 OTH SCREEN MAMMO-MALIGN NEOPLASM OF DRISS 01/03/2017 WONG, SIMON A DRILLER'S ASSISTANT Ot 241.0 NONTOX UNINODULAR GOITER 01/03/2017 MARC CYNTHIA KAY Ot E04.1 NONTOXIC SINGLE THYROID NODULE 01/03/2017 ZAYDA ABREU DO Ot E66.9 OBESITY, UNSPECIFIED 01/03/2017 ZAYDA ABREU DO Ot R06.00 DYSPNEA, UNSPECIFIED 01/03/2017 ZAYDA ABREU DO Ot I51.7 CARDIOMEGALY 01/03/2017 ZAYDA ABREU DO Ot R06.02 SHORTNESS OF BREATH 01/03/2017 Ot M79.661 PAIN IN RIGHT LOWER LEG 01/03/2017 Ot M79.662 PAIN IN LEFT LOWER LEG 01/03/2017 Ot R05 COUGH 01/03/2017 Ot R06.02 SHORTNESS OF BREATH 01/03/2017 JORDIN JULIAN, ERIKA Kirby Ot M51.36 OTHER INTERVERTEBRAL DISC DEGENERATION, 01/03/2017 CHA MURPHY DRILLER'S ASSISTANT Ot R10.11 RIGHT UPPER QUADRANT PAIN 01/03/2017 DELANEY JULIAN, HEENA Walters Ot M48.02 SPINAL STENOSIS, CERVICAL REGION 01/03/2017 Ot M54.2 CERVICALGIA 01/03/2017 Ot R20.0 ANESTHESIA OF SKIN 01/03/2017 CHA MURPHY DRILLER'S ASSISTANT Ot E04.2 NONTOXIC MULTINODULAR GOITER 01/03/2017 CHA MURPHY DRILLER'S ASSISTANT Ot E04.2 NONTOXIC MULTINODULAR GOITER 01/03/2017 MEMO DO, WILLY K Ot E11.9 TYPE 2 DIABETES MELLITUS WITHOUT COMPLIC 01/03/2017 MEMO KAY WILLY K Ot E66.9 OBESITY, UNSPECIFIED 01/03/2017 MEMO DO, WILLY K Ot I10 ESSENTIAL (PRIMARY) HYPERTENSION 01/03/2017 MEMO DO, WILLY K Ot K21.9 GASTRO-ESOPHAGEAL REFLUX DISEASE WITHOUT 01/03/2017 MEMO DO, WILLY K Ot K29.70 GASTRITIS, UNSPECIFIED, WITHOUT BLEEDING 01/03/2017 MEMO DO, WILLY K Ot M54.2 CERVICALGIA 01/03/2017 MEMO DO, WILLY K Ot R07.89 OTHER CHEST PAIN 01/03/2017 MEMO DO WILLY K Ot Z91.19 PATIENT'S NONCOMPLIANCE W OT MEDICAL TR 01/04/2017 JESSIE DEE DO Ot R10.11 RIGHT UPPER QUADRANT PAIN 01/04/2017 JESSIE DEE DO Ot R10.13 EPIGASTRIC PAIN 01/04/2017 JESSIE DEE DO Ot Z01.818 ENCOUNTER FOR OTHER PREPROCEDURAL EXAMIN 01/05/2017 JEANNINE JULIAN, SARAH Ahumada Ot R07.89 OTHER CHEST PAIN 01/05/2017 JESSIE DEE DO Ot E11.9 TYPE 2 DIABETES MELLITUS WITHOUT COMPLIC 01/05/2017 JESSIE DEE DO Ot E66.01 MORBID (SEVERE) OBESITY DUE TO EXCESS CA 01/05/2017 JESSIE DEE DO Ot G47.33 OBSTRUCTIVE SLEEP APNEA (ADULT) (PEDIATR 01/05/2017 JESSIE DEE DO Ot I08.3 COMB RHEUMATIC DISORD OF MITRAL, AORTIC 01/05/2017 JESSIE DEE DO Ot I10 ESSENTIAL (PRIMARY) HYPERTENSION 01/05/2017 JESSIE DEE DO Ot K29.70 GASTRITIS, UNSPECIFIED, WITHOUT BLEEDING 01/05/2017 JESSIE DEE DO Ot K44.9 DIAPHRAGMATIC HERNIA WITHOUT OBSTRUCTION 01/05/2017 JESSIE DEE DO Ot Z68.37 BODY MASS INDEX (BMI) 37.0-37.9, ADULT 01/05/2017 JESSIE DEE DO Ot Z79.899 OTHER STAFF DEVELOPER (CURRENT) DRUG THERAPY 01/05/2017 MEMO , WILLY K Ot E11.9 TYPE 2 DIABETES MELLITUS WITHOUT COMPLIC 01/05/2017 MEMO KAY WILLY K Ot E66.9 OBESITY, UNSPECIFIED 01/05/2017 MEMO DO WILLY K Ot I10 ESSENTIAL (PRIMARY) HYPERTENSION 01/05/2017 MEMO , WILLY K Ot K21.9 GASTRO-ESOPHAGEAL REFLUX DISEASE WITHOUT 01/05/2017 MEMO , WILLY K Ot K29.70 GASTRITIS, UNSPECIFIED, WITHOUT BLEEDING 01/05/2017 MEMO DO WILLY K Ot M54.2 CERVICALGIA 01/05/2017 MEMO DO WILLY K Ot R07.89 OTHER CHEST PAIN 01/05/2017 MEMO DO WILLY K Ot Z91.19 PATIENT'S NONCOMPLIANCE W OT MEDICAL TR 01/10/2017 JESSIE DEE DO Ot E11.9 TYPE 2 DIABETES MELLITUS WITHOUT COMPLIC 01/10/2017 JESSIE DEE DO Ot E66.01 MORBID (SEVERE) OBESITY DUE TO EXCESS CA 01/10/2017 JESSIE DEE DO Ot G47.33 OBSTRUCTIVE SLEEP APNEA (ADULT) (PEDIATR 01/10/2017 JESSIE DEE DO Ot I08.3 COMB RHEUMATIC DISORD OF MITRAL, AORTIC 01/10/2017 JESSIE DEE DO Ot I10 ESSENTIAL (PRIMARY) HYPERTENSION 01/10/2017 JESSIE DEE DO Ot K29.70 GASTRITIS, UNSPECIFIED, WITHOUT BLEEDING 01/10/2017 JESSIE DEE DO Ot K44.9 DIAPHRAGMATIC HERNIA WITHOUT OBSTRUCTION 01/10/2017 JESSIE DEE DO Ot Z68.37 BODY MASS INDEX (BMI) 37.0-37.9, ADULT 01/10/2017 JESSIE DEE DO Ot Z79.899 OTHER JAIL (CURRENT) DRUG THERAPY 03/23/2017 SIMON WONG DRILLER'S ASSISTANT Ot 241.0 NONTOX UNINODULAR GOITER 03/23/2017 SIMON WONG APRN Ot V76.12 OTH SCREEN MAMMO-MALIGN NEOPLASM OF DRISS 03/23/2017 SIMON WONG DRILLER'S ASSISTANT Ot 241.0 NONTOX UNINODULAR GOITER 03/23/2017 CYNTHIA TRAN DO Ot E04.1 NONTOXIC SINGLE THYROID NODULE 03/23/2017 ZAYDA ABREU DO Ot E66.9 OBESITY, UNSPECIFIED 03/23/2017 ZAYDA ABREU DO Ot R06.00 DYSPNEA, UNSPECIFIED 03/23/2017 ZAYDA ABREU DO Ot I51.7 CARDIOMEGALY 03/23/2017 ZAYDA ABREU DO Ot R06.02 SHORTNESS OF BREATH 03/23/2017 Ot M79.661 PAIN IN RIGHT LOWER LEG 03/23/2017 Ot M79.662 PAIN IN LEFT LOWER LEG 03/23/2017 Ot R05 COUGH 03/23/2017 Ot R06.02 SHORTNESS OF BREATH 03/23/2017 JORDIN JULIAN, ERIKA Kirby Ot M51.36 OTHER INTERVERTEBRAL DISC DEGENERATION, 03/23/2017 CHA MURPHY DRILLER'S ASSISTANT Ot R10.11 RIGHT UPPER QUADRANT PAIN 03/23/2017 DELANEY JULIAN, HEENA Walters Ot M48.02 SPINAL STENOSIS, CERVICAL REGION 03/23/2017 Ot M54.2 CERVICALGIA 03/23/2017 Ot R20.0 ANESTHESIA OF SKIN 03/23/2017 CHA MURPHY DRILLER'S ASSISTANT Ot E04.2 NONTOXIC MULTINODULAR GOITER 03/23/2017 CHA MURPHY APRN Ot E04.2 NONTOXIC MULTINODULAR GOITER 05/07/2017 JEANNINE JULIAN, SARAH Ahumada Ot R07.89 OTHER CHEST PAIN 10/30/2017 SIMON WONG DRILLER'S ASSISTANT Ot 241.0 NONTOX UNINODULAR GOITER 10/30/2017 SIMON WONG DRILLER'S ASSISTANT Ot V76.12 OTH SCREEN MAMMO-MALIGN NEOPLASM OF DRISS 10/30/2017 SIMON WONG DRILLER'S ASSISTANT Ot 241.0 NONTOX UNINODULAR GOITER 10/30/2017 MARC KAY CYNTHIA K Ot E04.1 NONTOXIC SINGLE THYROID NODULE 10/30/2017 ZAYDA ABREU DO Ot E66.9 OBESITY, UNSPECIFIED 10/30/2017 ZAYDA ABREU DO Ot R06.00 DYSPNEA, UNSPECIFIED 10/30/2017 ZAYDA ABREU DO Ot I51.7 CARDIOMEGALY 10/30/2017 ZAYDA ABREU DO Ot R06.02 SHORTNESS OF BREATH 10/30/2017 Ot M79.661 PAIN IN RIGHT LOWER LEG 10/30/2017 Ot M79.662 PAIN IN LEFT LOWER LEG 10/30/2017 Ot R05 COUGH 10/30/2017 Ot R06.02 SHORTNESS OF BREATH 10/30/2017 JORDIN JULIAN, ERIKA Kirby Ot M51.36 OTHER INTERVERTEBRAL DISC DEGENERATION, 10/30/2017 CHA MURPHY DRILLER'S ASSISTANT Ot R10.11 RIGHT UPPER QUADRANT PAIN 10/30/2017 DELANEY JULIAN, HEENA Walters Ot M48.02 SPINAL STENOSIS, CERVICAL REGION 10/30/2017 Ot M54.2 CERVICALGIA 10/30/2017 Ot R20.0 ANESTHESIA OF SKIN 10/30/2017 CHA MURPHY APRN Ot E04.2 NONTOXIC MULTINODULAR GOITER 10/30/2017 CHA MURPHY APRN Ot E04.2 NONTOXIC MULTINODULAR GOITER Procedures There is no data. Results Test Result Range Complete blood count (CBC) with automated white blood cell (WBC) differential - 12/01/16 10:30 Blood leukocytes automated count (number/volume) 4.1 10*3/uL 4.3-11.0 Blood erythrocytes automated count (number/volume) 4.05 10*6/uL 4.35-5.85 Venous blood hemoglobin measurement (mass/volume) 12.0 g/dL 11.5-16.0 Blood hematocrit (volume fraction) 38 % 35-52 Automated erythrocyte mean corpuscular volume 93 [foz_us] 80-99 Automated erythrocyte mean corpuscular hemoglobin (mass per erythrocyte) 30 pg 25-34 Automated erythrocyte mean corpuscular hemoglobin concentration measurement (mass/volume) 32 g/dL 32-36 Automated erythrocyte distribution width ratio 13.1 % 10.0- 14.5 Automated blood platelet count (count/volume) 188 10*3/uL 130-400 Automated blood platelet mean volume measurement 11.2 [foz_us] 7.4-10.4 Automated blood neutrophils/100 leukocytes 57 % 42-75 Automated blood lymphocytes/100 leukocytes 35 % 12-44 Blood monocytes/100 leukocytes 6 % 0-12 Automated blood eosinophils/100 leukocytes 2 % 0-10 Automated blood basophils/100 leukocytes 1 % 0-10 Blood neutrophils automated count (number/volume) 2.3 10*3 1.8-7.8 Blood lymphocytes automated count (number/volume) 1.4 10*3 1.0-4.0 Blood monocytes automated count (number/volume) 0.3 10*3 0.0- 1.0 Automated eosinophil count 0.1 10*3/uL 0.0-0.3 Automated blood basophil count (count/volume) 0.0 10*3/uL 0.0-0.1 Comprehensive metabolic panel - 12/01/16 10:30 Serum or plasma sodium measurement (moles/volume) 142 mmol/L 135-145 Serum or plasma potassium measurement (moles/volume) 3.5 mmol/L 3.6-5.0 Serum or plasma chloride measurement (moles/volume) 109 mmol/L 98-107 Carbon dioxide 25 mmol/L 21-32 Serum or plasma anion gap determination (moles/volume) 8 mmol/L 5-14 Serum or plasma urea nitrogen measurement (mass/volume) 12 mg/dL 7-18 Serum or plasma creatinine measurement (mass/volume) 0.83 mg/dL 0.60-1.30 Serum or plasma urea nitrogen/creatinine mass ratio 14 NRG Serum or plasma creatinine measurement with calculation of estimated glomerular filtration rate > NRG Serum or plasma glucose measurement (mass/volume) 93 mg/dL 70-105 Serum or plasma calcium measurement (mass/volume) 9.2 mg/dL 8.5-10.1 Serum or plasma total bilirubin measurement (mass/volume) 0.6 mg/dL 0.1-1.0 Serum or plasma alkaline phosphatase measurement (enzymatic activity/volume) 88 U/L 40-136 Serum or plasma aspartate aminotransferase measurement (enzymatic activity/volume) 18 U/L 5-34 Serum or plasma alanine aminotransferase measurement (enzymatic activity/volume) 16 U/L 0-55 Serum or plasma protein measurement (mass/volume) 6.9 g/dL 6.4-8.2 Serum or plasma albumin measurement (mass/volume) 4.0 g/dL 3.2-4.5 Serum or plasma C reactive protein measurement (mass/volume) - 12/01/16 10:30 Serum or plasma C reactive protein measurement (mass/volume) 1.40 mg/dL 0.00-0.50 Complete urinalysis with reflex to culture - 12/01/16 11:08 Urine color determination YELLOW NRG Urine clarity determination VERY CLOUDY NRG Urine pH measurement by test strip 6 5-9 Specific gravity of urine by test strip 1.025 1.016-1.022 Urine protein assay by test strip, semi-quantitative 1+ NEGATIVE Urine glucose detection by automated test strip NEGATIVE NEGATIVE Erythrocytes detection in urine sediment by light microscopy NEGATIVE NEGATIVE Urine ketones detection by automated test strip NEGATIVE NEGATIVE Urine nitrite detection by test strip NEGATIVE NEGATIVE Urine total bilirubin detection by test strip NEGATIVE NEGATIVE Urine urobilinogen measurement by automated test strip (mass/volume) NORMAL NORMAL Urine leukocyte esterase detection by dipstick 1+ NEGATIVE Automated urine sediment erythrocyte count by microscopy (number/high power field) NONE NRG Automated urine sediment leukocyte count by microscopy (number/high power field) [HPF] NRG Bacteria detection in urine sediment by light microscopy MODERATE NRG Squamous epithelial cells detection in urine sediment by light microscopy 10-25 NRG Crystals detection in urine sediment by light microscopy PRESENT NRG Casts detection in urine sediment by light microscopy NONE NRG Mucus detection in urine sediment by light microscopy MODERATE NRG Complete urinalysis with reflex to culture YES NRG Calcium oxalate crystals detection in urine sediment by light microscopy RARE NRG Bacterial urine culture - 12/01/16 11:08 URINE CULTURE RESULTS 10,000/ML - 100,000/ML NR Complete blood count (CBC) with automated white blood cell (WBC) differential - 01/03/17 21:16 Blood leukocytes automated count (number/volume) 5.9 10*3/uL 4.3-11.0 Blood erythrocytes automated count (number/volume) 4.30 10*6/uL 4.35-5.85 Venous blood hemoglobin measurement (mass/volume) 12.8 g/dL 11.5-16.0 Blood hematocrit (volume fraction) 40 % 35-52 Automated erythrocyte mean corpuscular volume 92 [foz_us] 80-99 Automated erythrocyte mean corpuscular hemoglobin (mass per erythrocyte) 30 pg 25-34 Automated erythrocyte mean corpuscular hemoglobin concentration measurement (mass/volume) 32 g/dL 32-36 Automated erythrocyte distribution width ratio 13.0 % 10.0- 14.5 Automated blood platelet count (count/volume) 191 10*3/uL 130-400 Automated blood platelet mean volume measurement 11.3 [foz_us] 7.4-10.4 Automated blood neutrophils/100 leukocytes 49 % 42-75 Automated blood lymphocytes/100 leukocytes 39 % 12-44 Blood monocytes/100 leukocytes 10 % 0-12 Automated blood eosinophils/100 leukocytes 1 % 0-10 Automated blood basophils/100 leukocytes 1 % 0-10 Blood neutrophils automated count (number/volume) 2.9 10*3 1.8-7.8 Blood lymphocytes automated count (number/volume) 2.3 10*3 1.0-4.0 Blood monocytes automated count (number/volume) 0.6 10*3 0.0- 1.0 Automated eosinophil count 0.1 10*3/uL 0.0-0.3 Automated blood basophil count (count/volume) 0.0 10*3/uL 0.0-0.1 Comprehensive metabolic panel - 01/03/17 21:16 Serum or plasma sodium measurement (moles/volume) 142 mmol/L 135-145 Serum or plasma potassium measurement (moles/volume) 3.5 mmol/L 3.6-5.0 Serum or plasma chloride measurement (moles/volume) 112 mmol/L 98-107 Carbon dioxide 19 mmol/L 21-32 Serum or plasma anion gap determination (moles/volume) 11 mmol/L 5-14 Serum or plasma urea nitrogen measurement (mass/volume) 9 mg/dL 7-18 Serum or plasma creatinine measurement (mass/volume) 0.72 mg/dL 0.60-1.30 Serum or plasma urea nitrogen/creatinine mass ratio 13 NRG Serum or plasma creatinine measurement with calculation of estimated glomerular filtration rate > NRG Serum or plasma glucose measurement (mass/volume) 85 mg/dL 70-105 Serum or plasma calcium measurement (mass/volume) 9.3 mg/dL 8.5-10.1 Serum or plasma total bilirubin measurement (mass/volume) 0.4 mg/dL 0.1-1.0 Serum or plasma alkaline phosphatase measurement (enzymatic activity/volume) 90 U/L 40-136 Serum or plasma aspartate aminotransferase measurement (enzymatic activity/volume) 18 U/L 5-34 Serum or plasma alanine aminotransferase measurement (enzymatic activity/volume) 17 U/L 0-55 Serum or plasma protein measurement (mass/volume) 7.5 g/dL 6.4-8.2 Serum or plasma albumin measurement (mass/volume) 4.2 g/dL 3.2-4.5 Magnesium - 01/03/17 21:16 Magnesium 2.1 mg/dL 1.8-2.4 Serum or plasma creatine kinase measurement (enzymatic activity/volume) - 01/03/17 21:16 Serum or plasma creatine kinase measurement (enzymatic activity/volume) 156 U/L 29-168 Serum or plasma creatine kinase MB measurement (enzymatic activity/volume) - 01/03/17 21:16 Serum or plasma creatine kinase MB measurement (enzymatic activity/volume) 1.0 ng/mL <6.6 Serum or plasma troponin i.cardiac measurement (mass/volume) - 01/03/17 21:16 Serum or plasma troponin i.cardiac measurement (mass/volume) < ng/mL <0.30 Serum or plasma amylase measurement (enzymatic activity/volume) - 01/03/17 21:16 Serum or plasma amylase measurement (enzymatic activity/volume) 86 U/L 25-125 Lipase - 01/03/17 21:16 Lipase 13 U/L 8-78 Serum or plasma lithium measurement (moles/volume) - 01/03/17 21:16 BNP level < pg/mL <100.0 PT panel in platelet poor plasma by coagulation assay - 01/03/17 21:16 Prothrombin time (PT) in platelet poor plasma by coagulation assay 12.4 s 12.2-14.7 INR in platelet poor plasma or blood by coagulation assay 1.0 0.8-1.4 Activated partial thromboplastin time (aPTT) in platelet poor plasma bycoagulation assay - 01/03/17 21:16 Activated partial thromboplastin time (aPTT) in platelet poor plasma bycoagulation assay 31 s 24-35 Complete blood count (CBC) with automated white blood cell (WBC) differential - 02/22/19 23:35 Blood leukocytes automated count (number/volume) 6.5 10*3/uL 4.3-11.0 Blood erythrocytes automated count (number/volume) 4.26 10*6/uL 4.35-5.85 Venous blood hemoglobin measurement (mass/volume) 12.7 g/dL 11.5-16.0 Blood hematocrit (volume fraction) 39 % 35-52 Automated erythrocyte mean corpuscular volume 92 [foz_us] 80-99 Automated erythrocyte mean corpuscular hemoglobin (mass per erythrocyte) 30 pg 25-34 Automated erythrocyte mean corpuscular hemoglobin concentration measurement (mass/volume) 33 g/dL 32-36 Automated erythrocyte distribution width ratio 13.2 % 10.0- 14.5 Automated blood platelet count (count/volume) 214 10*3/uL 130-400 Automated blood platelet mean volume measurement 10.8 [foz_us] 7.4-10.4 Automated blood neutrophils/100 leukocytes 65 % 42-75 Automated blood lymphocytes/100 leukocytes 27 % 12-44 Blood monocytes/100 leukocytes 7 % 0-12 Automated blood eosinophils/100 leukocytes 1 % 0-10 Automated blood basophils/100 leukocytes 0 % 0-10 Blood neutrophils automated count (number/volume) 4.2 10*3 1.8-7.8 Blood lymphocytes automated count (number/volume) 1.7 10*3 1.0-4.0 Blood monocytes automated count (number/volume) 0.4 10*3 0.0- 1.0 Automated eosinophil count 0.1 10*3/uL 0.0-0.3 Automated blood basophil count (count/volume) 0.0 10*3/uL 0.0-0.1 Comprehensive metabolic panel - 02/22/19 23:35 Serum or plasma sodium measurement (moles/volume) 142 mmol/L 135-145 Serum or plasma potassium measurement (moles/volume) 3.5 mmol/L 3.6-5.0 Serum or plasma chloride measurement (moles/volume) 107 mmol/L 98-107 Carbon dioxide 24 mmol/L 21-32 Serum or plasma anion gap determination (moles/volume) 11 mmol/L 5-14 Serum or plasma urea nitrogen measurement (mass/volume) 10 mg/dL 7-18 Serum or plasma creatinine measurement (mass/volume) 0.82 mg/dL 0.60-1.30 Serum or plasma urea nitrogen/creatinine mass ratio 12 NRG Serum or plasma creatinine measurement with calculation of estimated glomerular filtration rate > NRG Serum or plasma glucose measurement (mass/volume) 117 mg/dL 70-105 Serum or plasma calcium measurement (mass/volume) 9.7 mg/dL 8.5-10.1 Serum or plasma total bilirubin measurement (mass/volume) 0.4 mg/dL 0.1-1.0 Serum or plasma alkaline phosphatase measurement (enzymatic activity/volume) 128 U/L 40-136 Serum or plasma aspartate aminotransferase measurement (enzymatic activity/volume) 18 U/L 5-34 Serum or plasma alanine aminotransferase measurement (enzymatic activity/volume) 22 U/L 0-55 Serum or plasma protein measurement (mass/volume) 7.4 g/dL 6.4-8.2 Serum or plasma albumin measurement (mass/volume) 4.1 g/dL 3.2-4.5 CALCIUM CORRECTED 9.6 mg/dL 8.5-10.1 Lipase - 02/22/19 23:35 Lipase 11 U/L 8-78 Serum or plasma C reactive protein measurement (mass/volume) - 02/22/19 23:35 Serum or plasma C reactive protein measurement (mass/volume) 6.01 mg/dL 0.00-0.50 Encounters ACCT No. Visit Date/Time Discharge Status Pt. Type Provider Facility Loc./Unit Complaint [id number] 01/13/2017 15:21:00 01/13/2017 23:59:59 CLS Preadmit CHA MURPHY APRN [facility] RAD Z86.39 [id number] 01/03/2017 20:51:00 01/03/2017 23:21:00 DIS Emergency MEMO WILLY KAY [facility] ER NECK/BACK/CHEST PAIN [id number] 01/03/2017 10:14:00 01/03/2017 12:35:00 DIS Outpatient JESSIE DEE DO [facility] ENDO EPIGASTRIC RUQ ABDOMINAL PAIN [id number] 12/29/2016 05:39:00 12/29/2016 15:56:00 DIS Outpatient JESSIE DEE DO [facility] PREOP EPISGRATIC RUQ ABDOMINAL PAIN [id number] 12/01/2016 09:34:00 12/01/2016 14:20:00 DIS Emergency LILIAN RUTHERFORD MD [facility] ER ABD PAIN [id number] 02/02/2016 12:22:00 02/02/2016 23:59:59 CLS Outpatient CHA MURPHY APRN [facility] RAD MULTIPLE THYROID NODULES [id number] 01/22/2016 19:45:00 01/22/2016 22:32:00 DIS Emergency WILLY HAMPTON DO [facility] ER SOA [id number] 01/19/2016 10:56:00 01/19/2016 23:59:59 CLS Outpatient CHA MURPHY DRILLER'S ASSISTANT [facility] RAD MULTIPLE THYROID NODULE [id number] 12/25/2015 10:41:00 12/25/2015 23:59:59 CLS Outpatient DELANEY JULIAN, HEENA Walters [facility] RAD CERVICAL STENOSIS [id number] 12/25/2015 12:15:00 12/25/2015 13:38:00 DIS Emergency NIESHA VILLARREAL DRILLER'S ASSISTANT [facility] ER SHAKEY [id number] 12/12/2015 17:13:00 12/12/2015 18:57:00 DIS Emergency DEB JULIAN, SHANA Mckeon [facility] ER CP [id number] 12/08/2015 10:06:00 12/08/2015 12:25:00 DIS Outpatient JESSIE DEE DO [facility] SDC EPIGASTRIC PAIN [id number] 12/03/2015 06:05:00 12/03/2015 13:37:00 DIS Outpatient JESSIE DEE DO [facility] PREOP EPIGASTRIC PAIN [id number] 12/02/2015 07:32:00 12/02/2015 23:59:59 CLS Outpatient CHA MURPHY APRN [facility] RAD RUQ PAIN [id number] 11/30/2015 13:11:00 11/30/2015 16:45:00 DIS Emergency SANGEETA JULIAN, LILIAN Willams [facility] ER ABD PAIN [id number] 11/27/2015 12:38:00 11/27/2015 23:59:59 CLS Outpatient ERIKA BRENNER MD [facility] RAD LOW BACK PAIN [id number] 10/29/2015 19:52:00 10/30/2015 07:06:00 DIS Outpatient ZAYDA ABREU DO [facility] SLEEP SNORING,CHOKING/GASPING DURING SLEEP,HTN,JOYCE [id number] 10/28/2015 13:32:00 10/28/2015 23:59:59 CLS Outpatient ZAYDA ABREU DO [facility] RT SOB,OBESITY,ANXIETY,SCHIZOPHRENIA [id number] 10/16/2015 18:46:00 10/18/2015 16:51:00 DIS Inpatient RENE JULIAN, JESÚS Kirby [facility] 4TH CHEST PAIN [id number] 10/16/2015 09:56:00 10/16/2015 14:29:00 DIS Emergency JEANNINE JULIAN, SARAH Ahumada [facility] ER WHOLE LEFT SIDE PAIN [id number] 09/30/2015 07:33:00 09/30/2015 23:59:59 CLS Outpatient ZAYDA ABREU DO [facility] RAD SOB,OBESITY,ANXIETY [id number] 09/14/2015 12:33:00 09/15/2015 09:30:00 DIS Outpatient THANG JULIAN, ARELIS Tabares [facility] CATH CHEST PAIN [id number] 08/19/2015 12:28:00 08/19/2015 14:45:00 DIS Emergency WILLY HAMPTON DO [facility] ER CHEST PAIN [id number] 08/10/2015 12:04:00 08/11/2015 13:58:00 DIS Inpatient JESSICA GARCIA MD [facility] CSD CHEST PAIN HTN [id number] 05/28/2015 12:16:00 05/28/2015 23:59:59 CLS Outpatient CYNTHIA TRAN DO [facility] RAD THYROID NODULE [id number] 05/06/2015 02:47:00 05/06/2015 05:59:00 DIS Emergency MEMOWILLY Vazquez DO [facility] ER LEG,BACK PAIN [id number] 05/05/2015 09:54:00 05/05/2015 23:59:59 CLS Outpatient SIMON WONG DRILLER'S ASSISTANT [facility] CARD THYROID NODULE [id number] 04/22/2015 03:39:00 04/22/2015 06:30:00 DIS Emergency VALENTIN ARMENDARIZ MD [facility] ER HEAD STOMACH PAIN [id number] 04/21/2015 12:48:00 04/21/2015 23:59:59 CLS Outpatient SIMON WONG DRILLER'S ASSISTANT [facility] RAD SCREENING,HX OF THYROID NODULE [id number] 02/22/2019 23:43:00 Document Registration [id number] 01/19/2016 07:01:00 Document Registration [id number] 11/06/2015 11:13:00 Document Registration [id number] 05/22/2015 18:30:00 Document Registration [id number] 06/07/2015 06:30:03 06/07/2015 06:30:04 DIS Outpatient [id number] 08/02/2014 14:07:42 Document Registration [id number] 07/04/2014 11:16:34 Document Registration [id number] 06/23/2014 13:45:30 Document Registration [id number] 06/23/2014 13:45:29 Document Registration [id number] 06/23/2014 13:45:28 Document Registration [id number] 06/23/2014 13:45:27 Document Registration [id number] 06/23/2014 13:45:26 Document Registration [id number] 06/23/2014 13:19:54 Document Registration [id number] 06/23/2014 13:19:46 Document Registration [id number] 06/23/2014 13:19:45 Document Registration [id number] 06/23/2014 13:19:44 Document Registration [id number] 06/23/2014 13:19:43 Document Registration [id number] 06/23/2014 13:00:54 Document Registration [id number] 06/02/2014 15:18:21 Document Registration [id number] 05/26/2014 09:50:51 Document Registration [id number] 05/22/2014 13:54:15 Document Registration [id number] 05/22/2014 13:48:31 Document Registration [id number] 05/22/2014 13:48:23 Document Registration [id number] 05/22/2014 13:48:15 Document Registration [id number] 05/22/2014 13:48:04 Document Registration [id number] 05/05/2014 13:31:45 Document Registration [id number] 05/05/2014 13:31:37 Document Registration [id number] 05/05/2014 13:31:30 Document Registration [id number] 04/28/2014 12:51:40 Document Registration [id number] 04/28/2014 12:51:32 Document Registration [id number] 04/28/2014 12:51:24 Document Registration [id number] 04/28/2014 12:51:17 Document Registration [id number] 04/28/2014 12:51:06 Document Registration [id number] 04/27/2014 06:10:41 Document Registration [id number] 04/26/2014 06:11:21 Document Registration [id number] 04/26/2014 06:11:20 Document Registration [id number] 04/26/2014 06:11:19 Document Registration [id number] 04/26/2014 06:11:18 Document Registration [id number] 04/26/2014 06:11:12 Document Registration [id number] 04/26/2014 06:11:11 Document Registration [id number] 04/26/2014 06:11:10 Document Registration [id number] 04/26/2014 06:11:09 Document Registration [id number] 04/26/2014 06:11:03 Document Registration [id number] 04/26/2014 06:11:02 Document Registration [id number] 04/26/2014 06:11:01 Document Registration [id number] 04/26/2014 06:10:58 Document Registration [id number] 04/17/2014 15:53:58 Document Registration [id number] 04/10/2014 18:10:56 Document Registration [id number] 05/02/2016 16:42:28 05/02/2016 16:42:28 DIS Outpatient [facility]
--- NOTE | 2019-02-23 05:00 | NUR ---
WALT DWYER admitted to room 425-1, with an admitting diagnosis of DIVERTICULITIS, on 02/23/19 from ED via WHEELCHAIR, accompanied by STAFF.WALT DWYER introduced to surroundings, call light, bed controls, phone, TV, temperature control, lights, meal times, smoking policy, visitor policy, side rail policy, bathrooms and showers. Patient Rights given to patient in the handbook. WALT DWYER verbalizes understanding that [facility] is not responsible for the loss or damage to any personal effects or valuables that are kept in the patients posession during their hospitalization.
[2019-02-23 05:09] VITALS: BP 148/79
[2019-02-23] MEDS ORDERED: KETOROLAC 15 MG/ML VIAL IV PRN ×2 (05:15→11:45)
[2019-02-23] MEDS ORDERED: PROMETHAZINE INJ 25 MG/ML (PHENERGAN) AMP IV PRN (05:15)
[2019-02-23] MEDS ORDERED: fentaNYL INJECTION 100 MCG/2 ML AMP IV PRN (05:15)
[2019-02-23] MEDS: D5 1/2 NS W/KCL 20 MEQ/L 1,000 ML IV SCH ×3 (05:33→17:14)
[2019-02-23] MEDS: metroNIDAZOLE 500 MG/100 ML IVPB (PRE-MIX) IV SCH ×3 (05:33→22:25)
[2019-02-23 08:00] VITALS: BP 120/75
--- NOTE | 2019-02-23 08:27 | Diagnostic Imaging Report ---
INDICATION: Abdominal pain COMPARISON: None. FINDINGS: KUB and upright views of the abdomen demonstrate mild constipation without obstruction or ileus. There is no free air. Cholecystectomy clips are present. IMPRESSION: Mild constipation. Dictated by: Dictated on workstation # [id number]
[2019-02-23 08:28] LABS: BASOPHILS % (AUTO) 0 % (0-10); EOSINOPHILS # (AUTO) 0.1 10^3/uL (0.0-0.3); EOSINOPHILS % (AUTO) 1 % (0-10); HEMATOCRIT 36 % (35-52); HEMOGLOBIN 11.5 G/DL (11.5-16.0); LYMPHOCYTES # (AUTO) 1.5 X 10^3 (1.0-4.0); LYMPHOCYTES % (AUTO) 31 % (12-44); MEAN CORPUSCULAR HEMOGLOBIN 30 PG (25-34); MEAN CORPUSCULAR HGB CONC 32 G/DL (32-36); MEAN CORPUSCULAR VOLUME 92 FL (80-99); MEAN PLATELET VOLUME 11.2 FL (7.4-10.4); MONOCYTES # (AUTO) 0.4 X 10^3 (0.0-1.0); MONOCYTES % (AUTO) 9 % (0-12); NEUTROPHILS # (AUTO) 2.8 X 10^3 (1.8-7.8); NEUTROPHILS % (AUTO) 59 % (42-75); PLATELET COUNT 178 10^3/uL (130-400); RED CELL DISTRIBUTION WIDTH 13.3 % (10.0-14.5); WHITE BLOOD COUNT 4.7 10^3/uL (4.3-11.0)
--- NOTE | 2019-02-23 08:34 | Diagnostic Imaging Report ---
PROCEDURE: CT abdomen and pelvis with contrast. TECHNIQUE: Multiple contiguous axial images were obtained through the abdomen and pelvis after administration of intravenous contrast. Auto Exposure Controls were utilized during the CT exam to meet ALARA standards for radiation dose reduction. INDICATION: Constipation for 2 weeks. Surgical history includes hysterectomy, cholecystectomy, appendectomy, hernia repair and kidney stones. Comparison is made with prior examination from 12/01/16. FINDINGS: The heart size is normal. Lung bases are clear. The liver is normal in size without focal lesions. Gallbladder surgically absent. There is no biliary duct dilatation. The spleen is normal. The pancreas, adrenal glands, and kidneys are unremarkable. The bowel gas pattern is nonspecific. There is moderate amount of retained fecal material likely reflecting some degree of constipation. There is mild diverticulitis of the sigmoid colon without evidence of free air or abscess. There are mild degenerative changes in the spine. IMPRESSION: Uncomplicated diverticulitis of the sigmoid colon. Moderate amount of retained fecal material likely reflecting some degree of constipation. Dictated by: Dictated on workstation # [id number]
[2019-02-23] MEDS: CIPROFLOXACIN 400 MG/D5W 200 ML (PRE-MIX) IV SCH ×2 (08:38→20:39)
[2019-02-23] MEDS: ONDANSETRON 4 MG/2 ML (SDV) Z0FRAN IV PRN (08:38)
[2019-02-23 08:39] LABS: ALANINE AMINOTRANSFERASE 18 U/L (0-55); ALBUMIN 3.5 GM/DL (3.2-4.5); ALKALINE PHOSPHATASE 105 U/L (40-136); BILIRUBIN,TOTAL 0.7 MG/DL (0.1-1.0); BUN/CREATININE RATIO 10; CALCIUM 8.7 MG/DL (8.5-10.1); CARBON DIOXIDE 23 MMOL/L (21-32); CHLORIDE 109 MMOL/L (98-107); CREATININE SERUM 0.72 MG/DL (0.60-1.30); GFR ESTIMATED > 60; GLUCOSE 106 MG/DL (70-105); POTASSIUM 3.7 MMOL/L (3.6-5.0); SODIUM 141 MMOL/L (135-145); TOTAL PROTEIN 6.3 GM/DL (6.4-8.2)
--- NOTE | 2019-02-23 11:29 | Consultation - Surgery ---
History of Present Illness History of Present Illness Patient Consulted On(donovan/time) 02/23/19 11:20 Time Seen by Provider: 10:35 History of Present Illness Surgery asked to consult regarding Diverticulitis. HPI per ED: This 48-year-old woman presents to the emergency room with complaints of abdominal cramping and tenderness to the abdomen for about 3 days. She states she is no longer passing gas. She is only had one bowel movement in the last 2 weeks. She has nausea without vomiting. She denies fever. She has a history of a prior bowel obstruction. 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 When I spoke to the pt this am, she states this time the pain had been going of for 3-4 days and not getting better. She states she has constant abdominal pain, constipation and diverticulitis that cause her to go the the ER 3-4 times a year. "I have pain no matter what I eat and the EGD they did showed Gastritis, they told me to take Carafate and Protonix; but they make the pain worse". When the pain gets bad she feels run down; rates the pain now as 5 out of 10. Dull pain all over her abdomen. She also get constipation and takes Miralax daily, "but even that doesn't help me much". Allergies and Home Medications Allergies Coded Allergies: Sulfa (Sulfonamide Antibiotics) (Verified Allergy, Unknown, 04/22/15) topiramate (Verified Allergy, Unknown, 05/22/15) tramadol (Verified Allergy, Unknown, 04/22/15) Uncoded Allergies: SILK TAPE (Adverse Reaction, Unknown, 05/22/15) Home Medications No Active Prescriptions or Reported Meds Patient Home Medication List Home Medication List Reviewed: Yes Past Yzofgry-Moabqj-Mowlac Hx Patient Social History Alcohol Use: Rarely Uses Recreational Drug Use: No Smoking Status: Never a Smoker 2nd Hand Smoke Exposure: No Recent Foreign Travel: No Contact w/Someone Who Travel: No Recent Infectious Disease Expo: No Recent Hopitalizations: No Immunizations Up To Date Tetanus Booster (TDap): Unknown Date of Pneumonia Vaccine: Sep 14, 2012 Seasonal Allergies Seasonal Allergies: No Surgeries History of Surgeries: Yes (hernia repair, ovary removed, DXLS, kidney stone- URETERAL STENTS) Surgeries: Abdominal, Appendectomy, Bladder Surgery, Cardiac, Gallbladder, Hysterectomy, Oophorectomy, Orthopedic, Renal, Tubal Ligation Respiratory History of Respiratory Disorde: Yes Respiratory Disorders: Sleep Apnea Cardiovascular History of Cardiac Disorders: Yes Cardiac Disorders: Cardiomyopathy, Hypertension, Valvular Heart Disease Neurological History of Neurological Disord: Yes (lumbar spinal stenosis) Neurological Disorders: Headaches /Migraines Reproductive System : No Hx 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: No Female 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: Endometriosis 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 Genitourinary Genitourinary Disorders: Kidney Stones Gastrointestinal History of Gastrointestinal Di: Yes Gastrointestinal Disorders: Gastroesophageal Reflux, Obstructive Bowel, Diverticulosis, Pancreatitis Musculoskeletal History of Musculoskeletal Dis: Yes (lumbar spinal stenosis) Musculoskeletal Disorders: Chronic Back Pain Endocrine History of Endocrine Disorders: Yes (thyroid nodules; OBESITY) Endocrine Disorders: Diabetes, Non-Insulin dep Cancer History of Cancer: No Psychosocial History of Psychiatric Problem: Yes Behavioral Health Disorders: Anxiety, Schizophrenia, Depression Integumentary History of Skin or Integumenta: No Blood Transfusions History of Blood Disorders: Yes (anemia prior to hysterectomy) Adverse Reaction to a Blood Tr: No Family Medical History Significant Family History: CAD Over 55 Years Old, Diabetes, Hypertension, Renal Disease Family Medial History: Hypertension 19 MOTHER Kidney disease 19 MOTHER Myocardial infarction 19 FATHER Review of Systems-General Constitutional: chills, diaphoresis, fever, malaise, weakness EENTM: No blurred vision, No double vision, No mouth pain, No mouth swelling, No epistaxis Respiratory: No cough, No dyspnea on exertion, No hemoptysis Cardiovascular: No chest pain, No palpitations Gastrointestinal: abdominal pain, constipation; No hematemesis, No jaundice; loss of appetite, nausea Genitourinary: No dysuria, No frequency, No hematuria Musculoskeletal: joint pain, joint swelling, muscle pain, muscle stiffness Skin: No change in color, No change in hair/nails Psychiatric/Neurological: Denies Anxiety, Denies Depressed, Denies Seizure, Denies Tremors Other Pt denies any hx of abnormal bleeding or bruising Physical Exam-General Problems Physical Exam Vital Signs Vital Signs - First Documented 02/22/19 02/23/19 02/23/19 22:45 04:36 05:08 Temp 98.6 Pulse 101 Resp 18 B/P (MAP) 161/91 (114) Pulse Ox 95 O2 Delivery Room Air Capillary Refill : Less Than 3 Seconds General Appearance: WD/WN, moderate distress Eyes: Bilateral Eye PERRL, Bilateral Eye EOMI HEENT: pharynx normal; No scleral icterus (R), No scleral icterus (L) Neck: non-tender, full range of motion, supple, normal inspection Respiratory: chest non-tender, lungs clear, normal breath sounds, no respiratory distress, no accessory muscle use Cardiovascular: regular rate, rhythm, no edema, no murmur Gastrointestinal: soft, no organomegaly, tenderness (diffusely, ??more in LLQ); No hernia Back: no CVA tenderness, no vertebral tenderness Extremities: normal range of motion, non-tender, normal inspection, no pedal edema, no calf tenderness, normal capillary refill Neurologic/Psychiatric: social work administrator II-XII nml as tested, no motor/sensory deficits, alert, oriented x 3, depressed affect Skin: normal color, warm/dry Lymphatic: no adenopathy (neck, axilla or groin) Data Review Labs Laboratory Tests 02/22/19 23:35: White Blood Count 6.5, Red Blood Count 4.26L, Hemoglobin 12.7, Hematocrit 39, Mean Corpuscular Volume 92, Mean Corpuscular Hemoglobin 30, Mean Corpuscular Hemoglobin Concent 33, Red Cell Distribution Width 13.2, Platelet Count 214, Mean Platelet Volume 10.8H, Neutrophils (%) (Auto) 65, Lymphocytes (%) (Auto) 2 7, Monocytes (%) (Auto) 7, Eosinophils (%) (Auto) 1, Basophils (%) (Auto) 0, Neutrophils # (Auto) 4.2, Lymphocytes # (Auto) 1.7, Monocytes # (Auto) 0.4, Eosinophils # (Auto) 0.1, Basophils # (Auto) 0.0, Sodium Level 142, Potassium Level 3.5L, Chloride Level 107, Carbon Dioxide Level 24, Anion Gap 11, Blood Urea Nitrogen 10, Creatinine 0.82, Estimat Glomerular Filtration Rate > 60, BUN/Creatinine Ratio 12, Glucose Level 117H, Calcium Level 9.7, Corrected Calcium 9.6, Total Bilirubin 0.4, Aspartate Amino Transf (AST/SGOT) 18, Alanine Aminotransferase (ALT/SGPT) 22, Alkaline Phosphatase 128, C-Reactive Protein High Sensitivity 6.01H, Total Protein 7.4, Albumin 4.1, Lipase 11 02/23/19 08:10: White Blood Count 4.7, Red Blood Count 3.89L, Hemoglobin 11.5, Hematocrit 36, Mean Corpuscular Volume 92, Mean Corpuscular Hemoglobin 30, Mean Corpuscular Hemoglobin Concent 32, Red Cell Distribution Width 13.3, Platelet Count 178, Mean Platelet Volume 11.2H, Neutrophils (%) (Auto) 59, Lymphocytes (%) (Auto) 31, Monocytes (%) (Auto) 9, Eosinophils (%) (Auto) 1, Basophils (%) (Auto) 0, Neutrophils # (Auto) 2.8, Lymphocytes # (Auto) 1.5, Monocytes # (Auto) 0.4, Eosinophils # (Auto) 0.1, Basophils # (Auto) 0.0, Sodium Level 141, Potassium Level 3.7, Chloride Level 109H, Carbon Dioxide Level 23, Anion Gap 9, Blood Urea Nitrogen 7, Creatinine 0.72, Estimat Glomerular Filtration Rate > 60, BUN/Creatinine Ratio 10, Glucose Level 106H, Calcium Level 8.7, Corrected Calcium 9.1, Total Bilirubin 0.7, Aspartate Amino Transf (AST/SGOT) 17, Alanine Aminotransferase (ALT/SGPT) 18, Alkaline Phosphatase 105, Total Protein 6.3L, Albumin 3.5 Assessment/Plan Assessment/Plan Assessment/Plan Diverticulitis Gastritis Constipation I sat down with the pt and we went through Diverticulitis, Gastritis and Constipation. Initial treatment in the hospital is ABX and fluids; hopefully pain improves and we can advance her diet. Her WBC is normal. Once she gets out; diet modification is going to be the best thing for her. She states she has increased fruits and vegetables; but does not drink much fluid (mostly tea and juice). She needs to eat more fruits and vegetable 8-10 servings per day; increase fluid intake (water or gatorade). Both of these will help with constipation which in turn helps with diverticulitis. She needs to cut back on red meat. She probably needs another EGD with H. Pylori testing if not already done. Probiotics will also be very important to get good bacteria back into the GI system. All questions answered to her satisfaction. Clinical Quality Measures DVT/VTE Risk/Contraindication: Risk Factor Score Per Nursin RFS Level Per Nursing on Admit: 3=High MADAN SHOEMAKER DO Feb 23, 2019 11:29
[2019-02-23] MEDS ORDERED: IBUPROFEN TABLET 200 MG TAB PO PRN (11:45)
[2019-02-23] MEDS: morphine INJ 4 MG/ML 1 ML (VIAL/SYRINGE) IVP PRN ×3 (11:54→20:40)
[2019-02-23 12:00] VITALS: BP 121/77
--- NOTE | 2019-02-23 12:26 | History & Physical-Hospitalist ---
History of Present Illness HPI/Chief Complaint Patient is a 48-year-old -[place] female with a past medical history of hypertension CHF small bowel obstruction diverticulosisand schizophrenia who presented to the emergency department with chief complaint of abdominal pain and constipation. She states that she has not had an adequate bowel movement for 2 weeks despite using Colace and prune juice which normally works for her constipation. She states her pain is all over her belly and feels similarly to when she had a previous bowel obstruction. She describes it as cramping. She has not passed any flatus. She is nauseous without vomiting. She has a history of diverticulitis but the pain is worse this time and has been previously. Source: patient Exam Limitations: no limitations Date Seen 02/23/19 Time Seen by a Provider: 11:00 Attending Physician Cuca Pressley MD PCP George Gomez DO Referring Physician Date of Admission Feb 23, 2019 at 04:18 Home Medications & Allergies Home Medications Reviewed patient Home Medication Reconciliation performed by pharmacy medication reconciliations pathological technician and/or nursing. Patients Allergies have been reviewed. Allergies Allergies Coded Allergies Sulfa (Sulfonamide Antibiotics) (Verified Allergy, Intermediate, hives, 02/23/19) risperidone (Verified Allergy, Unknown, 02/23/19) topiramate (Verified Allergy, Unknown, 05/22/15) tramadol (Verified Allergy, Unknown, 04/22/15) trazodone (Verified Allergy, Unknown, 02/23/19) Uncoded Allergies SILK TAPE ( Adverse Reaction, Unknown, 05/22/15) Past Sdbxdzh-[id number]-Xsvflm Hx Past Med/Social Hx: Reviewed Nursing Past Med/Soc Hx, Reviewed and Corrections made Patient Social History Alcohol Use: Rarely Uses Recreational Drug Use: No Smoking Status: Never a Smoker 2nd Hand Smoke Exposure: No Recent Foreign Travel: No Contact w/other who traveled: No Recent Hopitalizations: No Recent Infectious Disease Expo: No Immunizations Up To Date Tetanus Booster (TDap): Unknown Date of Pneumonia Vaccine: Sep 14, 2012 Seasonal Allergies Seasonal Allergies: No Past Medical History Surgeries: Abdominal, Appendectomy, Bladder Surgery, Cardiac, Gallbladder, Hysterectomy, Oophorectomy, Orthopedic, Renal, Tubal Ligation Currently Using CPAP: Yes Cardiac: Cardiomyopathy, Hypertension, Valvular Heart Disease Neurological: Headaches /Migraines : No Reproductive: No Female 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: Endometriosis Hysterectomy Genitourinary: Kidney Stones Gastrointestinal: Gastroesophageal Reflux, Obstructive Bowel, Diverticulosis, Pancreatitis Musculoskeletal: Chronic Back Pain Endocrine: Diabetes, Non-Insulin dep Psychosocial: Anxiety, Schizophrenia, Depression History of Blood Disorders: Yes (anemia prior to hysterectomy) Adverse Reaction to Blood Bridges: No Family History Reviewed Nursing Family Hx Hypertension 19 MOTHER Kidney disease 19 MOTHER Myocardial infarction 19 FATHER CAD Over 55 Years Old, Diabetes, Hypertension, Renal Disease Review of Systems Constitutional: No chills, No fever EENTM: no symptoms reported Respiratory: no symptoms reported Cardiovascular: no symptoms reported Gastrointestinal: see HPI, abdominal pain, constipation; No diarrhea; nausea; No vomiting Genitourinary: no symptoms reported Musculoskeletal: joint pain (left hip pain- chronic) Skin: no symptoms reported Psychiatric/Neurological: No Symptoms Reported Physical Exam Physical Exam Vital Signs Vital Signs - First Documented 02/22/19 02/23/19 02/23/19 22:45 04:36 05:08 Temp 98.6 Pulse 101 Resp 18 B/P (MAP) 161/91 (114) Pulse Ox 95 O2 Delivery Room Air Capillary Refill : Less Than 3 Seconds Height, Weight, BMI Height: 5'3.00" Weight: 215lbs. 6.4oz. [id number]; 37.2 BMI Method:Stated General Appearance: No Apparent Distress, WD/WN, Obese HEENT: Moist Mucous Membranes; No Scleral Icterus (L), No Scleral Icterus (R) Neck: Normal Inspection, Supple; No Thyromegaly Respiratory: Lungs Clear, No Respiratory Distress Cardiovascular: Regular Rate, Rhythm, No Murmur Gastrointestinal: Soft, Abnormal Bowel Sounds (quiet); No Distended, No Guarding, No Rebound; Tenderness (diffuse) Extremity: No Calf Tenderness, No Pedal Edema Neurologic/Psychiatric: Alert, Oriented x3, Depressed Affect Skin: Normal Color, Warm/Dry Results Results/Procedures Labs Laboratory Tests 02/22/19 23:35 02/23/19 08:10 02/24/19 04:41 Patient resulted labs reviewed. Imaging: Reviewed Imaging Report Assessment/Plan Admission Diagnosis Diverticulitis Admission Status: Observation Assessment and Plan assessment Diverticulitis Hypertension CHF Plan continue Cipro and Flagyl change fentanyl to morphine Add probiotic Add ibuprofen for hip pain Zofran and Phenergan for nausea Diagnosis/Problems Diagnosis/Problems (1) Diverticulitis of intestine Status: Acute Qualifiers: Diverticulitis site: large intestine Diverticulitis bleeding: without bleeding Diverticulitis complication: without perforation or abscess Qualified Codes: K57.32 - Diverticulitis of large intestine without perforation or abscess without bleeding (2) Nausea Status: Acute (3) HTN (hypertension) Status: Acute Qualifiers: Hypertension type: essential hypertension Qualified Codes: I10 - Essential (primary) hypertension Clinical Quality Measures DVT/VTE Risk/Contraindication: Risk Factor Score Per Nursin RFS Level Per Nursing on Admit: 3=High CUCA PRESSLEY MD Feb 23, 2019 12:26
[2019-02-23] MEDS ORDERED: hydrOXYzine (ATARAX) 10 MG TAB PO PRN (12:30)
[2019-02-23] MEDS ORDERED: NITROGLYCERIN 2% OINT 1 GM UNIT DOSE PACKET TOP PRN (12:30)
[2019-02-23 16:07] VITALS: BP 148/79
[2019-02-23 20:08] VITALS: BP 151/86
[2019-02-24] VITALS: BP 125/78
[2019-02-24] MEDS: morphine INJ 4 MG/ML 1 ML (VIAL/SYRINGE) IVP PRN ×5 (01:23→22:46)
[2019-02-24 04:00] VITALS: BP 137/67
[2019-02-24] MEDS: metroNIDAZOLE 500 MG/100 ML IVPB (PRE-MIX) IV SCH ×3 (05:35→22:45)
[2019-02-24 05:42] LABS: BASOPHILS % (AUTO) 0 % (0-10); EOSINOPHILS # (AUTO) 0.1 10^3/uL (0.0-0.3); EOSINOPHILS % (AUTO) 3 % (0-10); HEMATOCRIT 35 % (35-52); HEMOGLOBIN 11.3 G/DL (11.5-16.0); LYMPHOCYTES # (AUTO) 1.1 X 10^3 (1.0-4.0); LYMPHOCYTES % (AUTO) 29 % (12-44); MEAN CORPUSCULAR HEMOGLOBIN 30 PG (25-34); MEAN CORPUSCULAR HGB CONC 32 G/DL (32-36); MEAN CORPUSCULAR VOLUME 93 FL (80-99); MEAN PLATELET VOLUME 11.3 FL (7.4-10.4); MONOCYTES # (AUTO) 0.4 X 10^3 (0.0-1.0); MONOCYTES % (AUTO) 9 % (0-12); NEUTROPHILS # (AUTO) 2.3 X 10^3 (1.8-7.8); NEUTROPHILS % (AUTO) 59 % (42-75); PLATELET COUNT 185 10^3/uL (130-400); RED CELL DISTRIBUTION WIDTH 13.2 % (10.0-14.5); WHITE BLOOD COUNT 3.9 10^3/uL (4.3-11.0)
[2019-02-24 06:06] LABS: BUN/CREATININE RATIO 7; CALCIUM 8.7 MG/DL (8.5-10.1); CARBON DIOXIDE 21 MMOL/L (21-32); CHLORIDE 107 MMOL/L (98-107); GFR ESTIMATED > 60; GLUCOSE 97 MG/DL (70-105); POTASSIUM 3.5 MMOL/L (3.6-5.0); SODIUM 138 MMOL/L (135-145)
[2019-02-24] MEDS: CIPROFLOXACIN 400 MG/D5W 200 ML (PRE-MIX) IV SCH ×2 (07:46→20:46)
[2019-02-24 08:00] VITALS: BP 146/81
--- NOTE | 2019-02-24 11:00 | NUR ---
TORADOL 15MG IV FOR PAIN.
--- NOTE | 2019-02-24 11:15 | Progress Note - Hospitalist ---
Subjective HPI/CC On Admission Date Seen by Provider: Feb 24, 2019 Time Seen by Provider: 11:12 Patient is a 48-year-old -[place] female with a past medical history of hypertension CHF small bowel obstruction diverticulosisand schizophrenia who presented to the emergency department with chief complaint of abdominal pain and constipation. She states that she has not had an adequate bowel movement for 2 weeks despite using Colace and prune juice which normally works for her constipation. She states her pain is all over her belly and feels similarly to when she had a previous bowel obstruction. She describes it as cramping. She has not passed any flatus. She is nauseous without vomiting. She has a history of diverticulitis but the pain is worse this time and has been previously. Subjective/Events-last exam Pt reports persistent pain but morphine working better. Also has nausea. Objective Exam Vital Signs Vital Signs Date Time Temp Pulse Resp B/P (MAP) Pulse Ox O2 Delivery O2 Flow Rate FiO2 02/24/19 08:00 Room Air 02/24/19 08:00 98.2 80 20 146/81 (102) 97 Capillary Refill : Less Than 3 SecondsLess Than 3 Seconds General Appearance: No Apparent Distress, WD/WN, Obese Respiratory: Lungs Clear, No Respiratory Distress Cardiovascular: Regular Rate, Rhythm, No Murmur Gastrointestinal: Soft, Abnormal Bowel Sounds (quiet); No Distended, No Guarding, No Rebound; Tenderness (diffuse,mild) Extremity: No Calf Tenderness, No Pedal Edema Neurologic/Psychiatric: Alert, Oriented x3, Depressed Affect Results/Procedures Lab Laboratory Tests 02/24/19 04:41 Patient resulted labs reviewed. Imaging: Reviewed Imaging Report Assessment/Plan Assessment and Plan Assess & Plan/Chief Complaint assessment Diverticulitis Hypertension CHF hypokalemia Plan continue Cipro and Flagyl Cntinue Morphine given better pain control probiotic ibuprofen for hip pain Zofran and Phenergan for nausea replace potassium in fluids lovenox for DVT ppx Diagnosis/Problems Diagnosis/Problems (1) Diverticulitis of intestine Status: Acute Qualifiers: Diverticulitis site: large intestine Diverticulitis bleeding: without bleeding Diverticulitis complication: without perforation or abscess Qualified Codes: K57.32 - Diverticulitis of large intestine without perforation or abscess without bleeding (2) Nausea Status: Acute (3) HTN (hypertension) Status: Acute Qualifiers: Hypertension type: essential hypertension Qualified Codes: I10 - Essential (primary) hypertension Clinical Quality Measures DVT/VTE Risk/Contraindication: Risk Factor Score Per Nursin RFS Level Per Nursing on Admit: 3=High MARK THOMPSON MD Feb 24, 2019 11:15
--- NOTE | 2019-02-24 11:40 | NUR ---
REASSESSMENT NOT DONE. ASLEEP.
[2019-02-24] MEDS: ENOXAPARIN 40 MG/0.4 ML (LOVENOX) SYR SQ SCH (11:44)
[2019-02-24 11:58] VITALS: BP 130/75
--- NOTE | 2019-02-24 13:59 | Progress Note - Surgery ---
Subjective Time Seen by a Provider: 11:51 Subjective/Events-last exam Pt seen and examined, lying in bed in NAD. Pt states she still has diffuse abdominal pain, going across abdomen from left to right. States she can't take anything, "even water causes a burning in my stomach". Review of Systems General: Fatigue, Malaise Pulmonary: No Dyspnea, No Cough Cardiovascular: No: Chest Pain, Palpitations Gastrointestinal: Nausea, Abdominal Pain; No: Vomiting Genitourinary: No Dysuria, No Frequency Objective Exam Vital Signs Date Time Temp Pulse Resp B/P (MAP) Pulse Ox O2 Delivery O2 Flow Rate FiO2 02/24/19 11:58 97.1 75 20 130/75 (93) 97 Room Air 02/24/19 08:00 Room Air 02/24/19 08:00 98.2 80 20 146/81 (102) 97 Room Air 02/24/19 04:00 97.8 71 18 137/67 (90) 96 Room Air 02/24/19 00:00 98.8 73 18 125/78 (94) 93 Room Air 02/23/19 20:08 98.2 76 18 151/86 (107) 96 Room Air 02/23/19 20:00 Room Air 02/23/19 16:50 97.1 02/23/19 16:16 97.1 02/23/19 16:07 97.8 75 18 148/79 (102) 98 Room Air l I & O 02/24/19 07:00 Intake Total 1861 ml Balance 1861 ml Capillary Refill : Less Than 3 SecondsLess Than 3 Seconds General Appearance: No Apparent Distress, WD/WN, Obese HEENT: PERRL/EOMI, Moist Mucous Membranes Respiratory: Lungs Clear, No Respiratory Distress Cardiovascular: Regular Rate, Rhythm, No Murmur Gastrointestinal: soft, no organomegaly, tenderness (diffusely, ??more in LLQ); No hernia Extremity: No Calf Tenderness, No Pedal Edema Neurologic/Psychiatric: Alert, Oriented x3, Depressed Affect Results Lab Laboratory Tests 02/24/19 04:41: White Blood Count 3.9L, Red Blood Count 3.79L, Hemoglobin 11.3L, Hematocrit 35, Mean Corpuscular Volume 93, Mean Corpuscular Hemoglobin 30, Mean Corpuscular Hemoglobin Concent 32, Red Cell Distribution Width 13.2, Platelet Count 185, Mean Platelet Volume 11.3H, Neutrophils (%) (Auto) 59, Lymphocytes (%) (Auto) 29, Monocytes (%) (Auto) 9, Eosinophils (%) (Auto) 3, Basophils (%) (Auto) 0, Neutrophils # (Auto) 2.3, Lymphocytes # (Auto) 1.1, Monocytes # (Auto) 0.4, Eosinophils # (Auto) 0.1, Basophils # (Auto) 0.0, Sodium Level 138, Potassium Level 3.5L, Chloride Level 107, Carbon Dioxide Level 21, Anion Gap 10, Blood Urea Nitrogen 5L, Creatinine 0.70, Estimat Glomerular Filtration Rate > 60, BUN/Creatinine Ratio 7, Glucose Level 97, Calcium Level 8.7 Assessment/Plan Assessment/Plan Assessment/Plan Diverticulitis Gastritis Constipation Pt does not appear to be improving and her WBC is actually below normal today. She states morphine helped with the pain, but not completely and nothing is helping the nausea. Plan to do an EGD tomorrow to at least rule that out as a cause of her problem. Pt told she must start moving around, cannot lie in bed all day (nurse states she did get up to shower today, but then lies in bed and sleeps all day). Went over risks and complications of EGD with pt; incluiding but not limited to pain, bleeding, infection and even esophageal perforation. I still think she needs Probiotics to get good bacteria back into the GI system. All questions answered to her satisfaction. Clinical Quality Measures DVT/VTE Risk/Contraindication: Risk Factor Score Per Nursin RFS Level Per Nursing on Admit: 3=High MADAN SHOEMAKER DO Feb 24, 2019 13:59
--- NOTE | 2019-02-24 14:00 | NUR ---
CONSENT OBTAINED FOR EGD WITH POSSIBLE BX FOR TOMORROW. SURGERY SCHEDULED WITH NURSING DELIVERY TABLE FEEDER. MRSA NASAL SWAB DONE. MS 2MG IV FOR PAIN.
[2019-02-24 15:28] VITALS: BP 131/71
[2019-02-24] MEDS: D5 1/2 NS W/KCL 20 MEQ/L 1,000 ML IV SCH ×2 (17:09→20:46)
[2019-02-24] MEDS: ONDANSETRON 4 MG/2 ML (SDV) Z0FRAN IV PRN (18:39)
--- NOTE | 2019-02-24 18:42 | NUR ---
ZOFRAN 4MG IV FOR NAUSEA AND MS 2MG IV FOR PAIN. REFUSED TO AMBULATE AND REFUSED DINNER.
[2019-02-24 19:28] VITALS: BP 148/85
[2019-02-25] VITALS (7 sets, daily range): BP systolic 138–154; BP diastolic 76–97
[2019-02-25] MEDS: morphine INJ 4 MG/ML 1 ML (VIAL/SYRINGE) IVP PRN ×5 (01:05→22:19)
[2019-02-25] MEDS: metroNIDAZOLE 500 MG/100 ML IVPB (PRE-MIX) IV SCH ×3 (05:06→22:11)
[2019-02-25 05:48] LABS: BASOPHILS % (AUTO) 1 % (0-10); EOSINOPHILS # (AUTO) 0.1 10^3/uL (0.0-0.3); EOSINOPHILS % (AUTO) 2 % (0-10); HEMATOCRIT 37 % (35-52); LYMPHOCYTES # (AUTO) 1.1 X 10^3 (1.0-4.0); LYMPHOCYTES % (AUTO) 25 % (12-44); MEAN CORPUSCULAR HEMOGLOBIN 30 PG (25-34); MEAN CORPUSCULAR HGB CONC 32 G/DL (32-36); MEAN CORPUSCULAR VOLUME 93 FL (80-99); MEAN PLATELET VOLUME 11.4 FL (7.4-10.4); MONOCYTES # (AUTO) 0.4 X 10^3 (0.0-1.0); MONOCYTES % (AUTO) 10 % (0-12); NEUTROPHILS # (AUTO) 2.7 X 10^3 (1.8-7.8); NEUTROPHILS % (AUTO) 62 % (42-75); PLATELET COUNT 188 10^3/uL (130-400); RED CELL DISTRIBUTION WIDTH 12.9 % (10.0-14.5); WHITE BLOOD COUNT 4.3 10^3/uL (4.3-11.0)
[2019-02-25 06:10] LABS: BUN/CREATININE RATIO 8; CALCIUM 9.2 MG/DL (8.5-10.1); CARBON DIOXIDE 23 MMOL/L (21-32); CHLORIDE 105 MMOL/L (98-107); GFR ESTIMATED > 60; GLUCOSE 95 MG/DL (70-105); POTASSIUM 3.7 MMOL/L (3.6-5.0); SODIUM 139 MMOL/L (135-145)
[2019-02-25] MEDS: CIPROFLOXACIN 400 MG/D5W 200 ML (PRE-MIX) IV SCH ×2 (08:24→20:38)
[2019-02-25] MEDS: ENOXAPARIN 40 MG/0.4 ML (LOVENOX) SYR SQ SCH (12:17)
--- NOTE | 2019-02-25 12:50 | NUR ---
PT TAKEN DOWN FOR EGD BY ENDO STAFF
[2019-02-25] MEDS ORDERED: fentaNYL INJECTION 100 MCG/2 ML AMP ONE (12:55)
[2019-02-25] MEDS ORDERED: LIDOCAINE PF 2% 5 ML (XYLOCAINE) VIAL ONE (12:55)
[2019-02-25] MEDS ORDERED: MIDAZOLAM 2 MG/2 ML (VERSED) VIAL ONE (12:55)
[2019-02-25] MEDS ORDERED: HURRICAINE EXT TUBE (BENZOCAINE) ONE (13:05)
--- NOTE | 2019-02-25 13:13 | Progress Note-Pre Operative ---
Pre-Operative Progress Note H&P Reviewed The H&P was reviewed, patient examined and no changes noted. Time Seen by Provider: 13:09 Date H&P Reviewed: Feb 25, 2019 Time H&P Reviewed: 13:10 Pre-Operative Diagnosis: Chronic Gastritis, Epigastric and abdominal pain MADAN SHOEMAKER DO Feb 25, 2019 13:13
[2019-02-25] MEDS ORDERED: LACTATED RINGERS 1,000 ML IV STA (13:40)
[2019-02-25] MEDS ORDERED: HURRICAINE EXT TUBE (BENZOCAINE) XX PRN (13:45)
--- NOTE | 2019-02-25 13:45 | Progress Note - Hospitalist ---
Progress Note Progress Notes/Assess & Plan Date Seen 02/25/19 Time Seen by Provider: 13:45 Assessment & Plan The patient is unavailable as she is downstairs for an endoscopy PANFILO MONTEZ MD Feb 25, 2019 13:45
[2019-02-25] MEDS ORDERED: MULT-1067 PO (15:17)
[2019-02-25] MEDS ORDERED: IBUP-2055 PO (15:17)
[2019-02-25] MEDS ORDERED: ACET-2267 PO (15:17)
[2019-02-25] MEDS ORDERED: CYCL10TA9 PO (15:17)
--- NOTE | 2019-02-25 15:17 | NUR ---
SPOKE WITH PT WELL GOING OVER THE EX MED HISTORY TO COMPLETE THE MED REC. CYCLOBENZAPRINE 10MG- WAS PRESCRIBED TID BUT PT ONLY TAKES PRN OTC MEDS: IBUPROFEN 200MG- TAKES 2 TABS Q 6 H PRN TYLENOL 500MG- TAKES 1 T Q 6 H PRN CENTRUM- 1 DAILY
[2019-02-26] VITALS: BP 157/74
[2019-02-26] MEDS: D5 1/2 NS W/KCL 20 MEQ/L 1,000 ML IV SCH (03:19)
[2019-02-26] MEDS: morphine INJ 4 MG/ML 1 ML (VIAL/SYRINGE) IVP PRN ×2 (03:19→08:37)
[2019-02-26] MEDS: metroNIDAZOLE 500 MG/100 ML IVPB (PRE-MIX) IV SCH ×2 (05:59→14:48)
[2019-02-26 08:00] VITALS: BP 172/89
[2019-02-26] MEDS: CIPROFLOXACIN 400 MG/D5W 200 ML (PRE-MIX) IV SCH (08:29)
[2019-02-26] MEDS: ENOXAPARIN 40 MG/0.4 ML (LOVENOX) SYR SQ SCH (12:21)
--- NOTE | 2019-02-26 14:14 | Progress Note - Hospitalist ---
Progress Note Progress Notes/Assess & Plan Date Seen 02/26/19 Time Seen by Provider: 14:11 Assessment & Plan The patient reports she continues to have some degree of abdominal pain. This is a chronic complaint. Endoscopy yesterday did not show any anything of significance in the upper GI tract. CT scan at admission was consistent with uncomplicated diverticulitis. She has a history of chronic constipation. The nurses state that she makes no effort to eat. She has been rather generally uncooperative. Physical exam: Lungs are clear to auscultation. CV is regular without murmur. The abdomen is soft. There is no defined pain to palpation. Impression: Schizophrenia. 2.chronic untyped abdominal pain. 3.chronic constipation. Plan: Discharge. See discharge sequence for medications and routines. PANFILO MONTEZ MD Feb 26, 2019 14:14
[2019-02-26] MEDS ORDERED: CIPR-225 PO (14:20)
[2019-02-26] MEDS ORDERED: METR-145 PO (14:20)
--- NOTE | 2019-02-26 14:21 | Discharge Inst-Simple/Standard ---
Discharge Inst-Standard Discharge Medications New, Converted or Re-Newed RX: Transmitted to Pharmacy Patient Instructions/Follow Up Plan of Care/Instructions/FU: Medications as listed on the discharge sequence. 2 antibiotics for diverticulitis. Take them as directed until gone. See your physician in about 2 weeks. Activity as Tolerated: Yes Discharge Diet: Other Diet (bland diet) Return to The Hospital For: Decline in function PANFILO MONTEZ MD Feb 26, 2019 14:21
[2019-02-26 15:02] VITALS: BP 172/89
--- NOTE | 2019-02-26 23:03 | OPERATIVE REPORT ---
DATE OF SERVICE: 02/25/2019 PREOPERATIVE DIAGNOSES: Chronic abdominal pain, gastritis. POSTOPERATIVE DIAGNOSES: Chronic abdominal pain, gastritis. PROCEDURE: EGD with biopsy. SURGEON: Toro Monte D.O. NOVELTY PRINTING MACHINE OPERATOR: None. ANESTHESIA: IV sedation by the MAGNAFLUX OPERATOR. SPECIMEN: Biopsy from the antrum. BLOOD LOSS: Scant. FLUIDS: Per anesthesia. POSTOPERATIVE CONDITION: Stable. INDICATION FOR PROCEDURE: The patient is a 48-year-old female who has had chronic abdominal pain. She is actually admitted for diverticulitis, but she is having upper abdominal pain and never had an EGD before, needed to rule out gastritis, try to figure out why she has such a pain, not really related over the left lower quadrant area. FINDINGS: The patient had some mild gastritis, did see some blood in the stomach, but no active ulcers. PROCEDURE NOTE: After informed consent was obtained, the patient was brought to the endoscopy suite and placed in the bed left lateral decubitus position. She was administered IV sedation by the MAGNAFLUX OPERATOR who then monitored her vitals the entire time, heart rate, blood pressure and pulse ox. I then inserted the scope down the mouth through the esophagus into the stomach, noticed some flecks of blood in the stomach, took a picture of this, pushed through to the antrum. There was a little bit of redness in the antrum, a picture taken, pushed into the duodenum. Duodenum looked fine. Pulled back into the antrum, did a biopsy of the antrum and then a biopsy of the body of the stomach, retroflexed the scope, did not really have a hiatal hernia, pulled the scope into the esophagus. GE junction looked okay and then pulled the scope up the esophagus and out the mouth. The patient tolerated the procedure. She was recovered in endoscopy suite. Job ID: [id number] DocumentID: [id number] Dictated Date: 02/26/2019 17:25:07 Rehabilitation Case Coordinator Date: 02/26/2019 23:03:03 Dictated By: DO SE MO
--- OUTSIDE RECORDS SUMMARY | 2019-02-28 13:31 | XMS REPORT | Clinical Summary ---
Author Author [facility] Organization [facility] Address Unknown Phone Unavailable Care Team Providers Care Drop Tester Name Role Phone Adelaida Alatorre Unavailable Unavailable No Pcp, Na PCP Unavailable Ry Soler MD Unavailable Source Comments Some departments are not documenting in the electronic medical record. 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
--- OUTSIDE RECORDS SUMMARY | 2019-02-28 13:40 | XMS REPORT | Continuity of Care Document ---
Author Organization Unknown Address Unknown Allergies Active Description Code Type Severity Reaction Onset Reported/Identified Relationship to Patient Clinical Status Yes GABAPENTIN [id number] Drug Allergy N/A N/A Yes RISPERIDONE [id number] Drug Allergy N/A N/A Yes SULFAR Drug Allergy N/A N/A Yes TOPAMAX [id number] Drug Allergy N/A N/A Yes TRAMADOL HCL 38483 Drug Allergy N/A N/A Yes TRAZODONE HCL [id number] Drug Allergy N/A N/A Yes ADHESIVE TAPE Drug Allergy N/A N/A Yes GABAPENTIN [id number] Drug Allergy N/A N/A Yes RISPERDAL [id number] Drug Allergy N/A N/A Yes SULFA Drug Allergy N/A N/A Yes TOPAMAX [id number] Drug Allergy N/A N/A Yes TRAMADOL(HEADACHES AND NAUSEA) Drug Allergy N/A N/A Yes Sulfa (Sulfonamide Antibiotics) [id number] Drug Allergy Unknown N/A 04/22/2015 Yes tramadol [id number] Drug Allergy Unknown N/A 04/22/2015 Yes SILK TAPE SILK TAPE Unknown N/A 05/22/2015 Yes topiramate [id number] Drug Allergy Unknown N/A 05/22/2015 Yes Sulfa (Sulfonamide Antibiotics) [id number] Drug Allergy Moderate hives 02/23/2019 Yes risperidone [id number] Drug Allergy Unknown N/A 02/23/2019 Yes trazodone [id number] Drug Allergy Unknown N/A 02/23/2019 Medications Medication Packaging Start Date Stop Date [...] 789.00 ABDOMINAL PAIN, UNSPECIFIED SITE 05/06/2015 WILLY HAMPOTN DO Ot 466.0 ACUTE BRONCHITIS 05/06/2015 WILLY HAMPTON DO Ot 724.5 BACKACHE NOS 05/06/2015 WILLY HAMPTON DO Ottoniel Ot 786.2 COUGH 05/22/2015 Ot J40 BRONCHITIS, NOT SPECIFIED ACUTE OR CH 05/22/2015 Ot R05 COUGH 05/22/2015 Ot R51 HEADACHE 06/01/2015 WONG, SIMON Tabares EDUCATIONAL PROGRAM ASSISTANT Ot 241.0 06/11/2015 WONG, SIMON Tabares EDUCATIONAL PROGRAM ASSISTANT Ot 241.0 06/23/2015 CYNTHIA TRAN DO Ot E04.1 06/29/2015 WONG, SIMON Rayshawn EDUCATIONAL PROGRAM ASSISTANT Ot 241.0 06/29/2015 WONG, SIMON Tabares EDUCATIONAL PROGRAM ASSISTANT Ot V76.12 06/29/2015 WONG, SIMON Rayshawn EDUCATIONAL PROGRAM ASSISTANT Ot 241.0 06/29/2015 MARC KAY CYNTHIA Ottoniel Ot E04.1 06/30/2015 MARC KAY CYNTHIA Ottoniel Ot E04.1 07/10/2015 MARVIN SIMON Rayshawn EDUCATIONAL PROGRAM ASSISTANT Ot 241.0 07/10/2015 MARVIN SIMON Rayshawn EDUCATIONAL PROGRAM ASSISTANT Ot V76.12 07/22/2015 WONG, SIMON Tabares EDUCATIONAL PROGRAM ASSISTANT Ot 241.0 07/22/2015 WONG, SIMON Rayshawn EDUCATIONAL PROGRAM ASSISTANT Ot V76.12 08/11/2015 JESSICA GARCIA MD [...] BODY MASS INDEX (BMI) 39.0-39.9, ADULT 08/19/2015 WILLY HAMPTON DO Ot I10 ESSENTIAL (PRIMARY) HYPERTENSION 08/19/2015 WILLY HAMPTON DO Ot R07.89 OTHER CHEST PAIN 08/19/2015 WILLY HAMPTON DO Ot Z79.899 OTHER [facility] (CURRENT) DRUG THERAPY 09/15/2015 ARELIS DESIR MD [...] MD Ot I25.10 ATHSCL HEART DISEASE OF [place] CORONARY 09/15/2015 ARELIS DESIR MD Ot K21.9 GASTRO-ESOPHAGEAL REFLUX DISEASE WITHOUT 09/15/2015 ARELIS DESIR MD Ot R06.00 DYSPNEA, UNSPECIFIED 09/15/2015 ARELIS DESIR MD Ot R07.89 OTHER CHEST PAIN 09/15/2015 ARELIS DESIR MD Ot Z68.38 BODY MASS INDEX (BMI) 38.0-38.9, ADULT 09/15/2015 ARELIS DESIR MD Ot Z79.899 OTHER [facility] (CURRENT) DRUG THERAPY 09/15/2015 ARELIS DESIR MD Ot Z82.49 FAMILY HX OF [place] HEART DIS AND OTH DI 09/30/2015 SIMON WONG EDUCATIONAL PROGRAM ASSISTANT Ot 241.0 09/30/2015 SIMON WONG EDUCATIONAL PROGRAM ASSISTANT Ot V76.12 09/30/2015 SIMON WONG EDUCATIONAL PROGRAM ASSISTANT Ot 241.0 09/30/2015 MARC CYNTHIA Ottoniel Ot E04.1 10/16/2015 JEANNINE JULIAN, SARAH Ahumada Ot R07.89 OTHER CHEST PAIN 10/18/2015 JESÚS LÓPEZ MD Ot E11.9 TYPE 2 DIABETES MELLITUS WITHOUT COMPLIC 10/18/2015 JESÚS LÓPEZ MD Ot I10 ESSENTIAL (PRIMARY) HYPERTENSION 10/18/2015 JESÚS LÓPEZ MD Ot R07.89 OTHER CHEST PAIN 10/18/2015 JESÚS LÓPEZ MD Ot R10.84 GENERALIZED ABDOMINAL PAIN 10/18/2015 JESÚS LÓPEZ MD Ot R11.2 NAUSEA WITH VOMITING, UNSPECIFIED 10/18/2015 JESÚS LÓPEZ MD Ot R51 HEADACHE 10/18/2015 JESÚS LÓPEZ MD Ot Z23 ENCOUNTER FOR IMMUNIZATION 10/19/2015 JEANNINE JULIAN, SARAH S Ot R07.89 10/22/2015 ZAYDA ABREU DO Ot [...] DO Ot E66.9 OBESITY, UNSPECIFIED 11/25/2015 ZAYDA ABREU DO Ot R06.00 DYSPNEA, UNSPECIFIED 11/27/2015 Ot M79.661 PAIN IN RIGHT LOWER LEG 11/27/2015 Ot M79.662 PAIN IN LEFT LOWER LEG 11/27/2015 Ot R05 COUGH 11/27/2015 Ot R06.02 SHORTNESS OF BREATH 11/30/2015 JORDIN JULIAN, ERIKA Kirby Ot M51.36 OTHER INTERVERTEBRAL DISC DEGENERATION, 11/30/2015 SIMON WONG APRN Ot 241.0 NONTOX UNINODULAR GOITER 11/30/2015 SIMON WONG APRN Ot V76.12 OTH SCREEN MAMMO-MALIGN NEOPLASM OF [place]ISS 11/30/2015 SIMON WONG APRN Ot 241.0 NONTOX UNINODULAR GOITER 11/30/2015 CYNTHIA TRAN DO Ot E04.1 NONTOXIC SINGLE THYROID NODULE 11/30/2015 ZAYDA ABREU DO Jeanne Ot E66.9 OBESITY, UNSPECIFIED 11/30/2015 ZAYDA ABREU [...] Ot M51.36 OTHER INTERVERTEBRAL DISC DEGENERATION, 11/30/2015 LILIAN RUTHERFORD MD Ot K57.90 DVRTCLOS OF INTEST, PART UNSP, W/O PERF 11/30/2015 LILIAN RUTHERFORD MD Ot R10.11 RIGHT UPPER QUADRANT PAIN 12/02/2015 LILIAN RUTHERFORD MD Ot K57.90 DVRTCLOS OF INTEST, PART UNSP, W/O PERF 12/02/2015 LILIAN RUTHERFORD MD Ot R10.11 RIGHT UPPER QUADRANT PAIN 12/03/2015 DEEJESSIE SOLOMON DO Ot R10.13 EPIGASTRIC PAIN 12/03/2015 JESSIE DEE DO Ot Z01.818 ENCOUNTER FOR OTHER PREPROCEDURAL EXAMIN 12/03/2015 CHA MURPHY APRN Ot R10.11 RIGHT UPPER QUADRANT PAIN 12/04/2015 [place] JESSIE KAY Ot R10.13 EPIGASTRIC PAIN 12/04/2015 JESSIE DEE DO Ot Z01.818 ENCOUNTER FOR OTHER PREPROCEDURAL EXAMIN 12/08/2015 JESSIE DEE DO Ot K29.70 GASTRITIS, UNSPECIFIED, WITHOUT BLEEDING 12/08/2015 JESSIE DEE DO Ot K44.9 DIAPHRAGMATIC HERNIA WITHOUT OBSTRUCTION 12/12/2015 SIMON WONG APRN Ot 241.0 NONTOX UNINODULAR GOITER 12/12/2015 SIMON WONG A MAE Ot V76.12 OTH SCREEN MAMMO-MALIGN NEOPLASM OF [place] 12/12/2015 SIMON WONG EDUCATIONAL PROGRAM ASSISTANT Ot 241.0 NONTOX UNINODULAR GOITER 12/12/2015 CYNTHIA TRAN DO Ot E04.1 NONTOXIC SINGLE THYROID NODULE 12/12/2015 [...] OTHER INTERVERTEBRAL DISC DEGENERATION, 12/12/2015 CHA MURPHY EDUCATIONAL PROGRAM ASSISTANT Ot R10.11 RIGHT UPPER QUADRANT PAIN 12/12/2015 DEB JULIAN, SHANA T Ot I10 ESSENTIAL (PRIMARY) HYPERTENSION 12/12/2015 DEB JULIAN, SHANA Mckeon Ot M54.16 RADICULOPATHY, LUMBAR REGION 12/12/2015 SHANA BOYD MD Ot R07.89 OTHER CHEST PAIN 12/14/2015 SHANA BOYD MD T Ot I10 ESSENTIAL (PRIMARY) HYPERTENSION 12/14/2015 DEB JULIAN, SHANA Mckeon Ot M54.16 RADICULOPATHY, LUMBAR REGION 12/14/2015 DEB JULIAN, SHANA Mckeon Ot R07.89 OTHER CHEST PAIN 12/17/2015 ERIKA BRENNER MD Ot M51.36 OTHER INTERVERTEBRAL DISC DEGENERATION, 12/23/2015 CHA MURPHY APRN Ot R10.11 RIGHT UPPER QUADRANT PAIN 12/25/2015 NIESHA VILLARREAL APRN Ot 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 12/28/2015 DELANEY JULIAN, HEENA Walters Ot M48.02 SPINAL STENOSIS, CERVICAL REGION 12/29/2015 NIESHA VILLARREAL EDUCATIONAL PROGRAM ASSISTANT Ot 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 12/29/2015 NIESHA VILLARREAL EDUCATIONAL PROGRAM ASSISTANT Ot 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 12/29/2015 Ot M79.661 PAIN IN RIGHT LOWER LEG 12/29/2015 Ot M79.662 PAIN IN LEFT LOWER LEG 12/29/2015 Ot R05 COUGH 12/29/2015 Ot R06.02 SHORTNESS OF BREATH 12/29/2015 CHA MURPHY EDUCATIONAL PROGRAM ASSISTANT Ot R10.11 RIGHT UPPER QUADRANT PAIN 12/31/2015 DELANEY JULIAN, HEENA Walters Ot M48.02 SPINAL STENOSIS, CERVICAL REGION 01/01/2016 JORDIN JULIAN, ERIKA Kirby Ot M51.36 OTHER INTERVERTEBRAL DISC DEGENERATION, 01/19/2016 Ot M54.2 CERVICALGIA 01/20/2016 Ot M54.2 CERVICALGIA 01/20/2016 Ot R20.0 ANESTHESIA OF SKIN 01/20/2016 Ot M54.2 CERVICALGIA 01/20/2016 Ot R20.0 ANESTHESIA OF SKIN 01/21/2016 CHA MURPHY EDUCATIONAL PROGRAM ASSISTANT Ot E04.2 NONTOXIC MULTINODULAR GOITER 01/22/2016 CHA MURPHY EDUCATIONAL PROGRAM ASSISTANT Ot E04.2 NONTOXIC MULTINODULAR GOITER 01/22/2016 MEMO DO, WILLY K Ot I10 ESSENTIAL (PRIMARY) HYPERTENSION 01/22/2016 MEMO DO, WILLY K Ot R53.1 WEAKNESS 01/22/2016 MEMO DO, WILLY K Ot Z79.899 OTHER [facility] (CURRENT) DRUG THERAPY 01/25/2016 MEMO DO, WILLY K Ot I10 ESSENTIAL (PRIMARY) HYPERTENSION 01/25/2016 MEMO DO, WILLY K Ot R53.1 WEAKNESS 01/25/2016 MEMO DO, WILLY K Ot Z79.899 OTHER [facility] (CURRENT) DRUG THERAPY 02/08/2016 CHA MURPHY EDUCATIONAL PROGRAM ASSISTANT Ot E04.2 NONTOXIC MULTINODULAR GOITER 02/08/2016 CHA MURPHY APRN Ot E04.2 NONTOXIC MULTINODULAR GOITER 02/09/2016 CHA MURPHY APRN Ot E04.2 NONTOXIC MULTINODULAR GOITER 02/10/2016 Ot M54.2 CERVICALGIA 02/10/2016 Ot R20.0 ANESTHESIA OF SKIN 02/10/2016 CHA MURPHY EDUCATIONAL PROGRAM ASSISTANT Ot E04.2 NONTOXIC MULTINODULAR GOITER 02/18/2016 CHA MURPHY EDUCATIONAL PROGRAM ASSISTANT Ot E04.2 NONTOXIC MULTINODULAR GOITER 02/25/2016 CHA MURPHY EDUCATIONAL PROGRAM ASSISTANT Ot E04.2 NONTOXIC MULTINODULAR GOITER 02/29/2016 Ot M54.2 CERVICALGIA 02/29/2016 Ot R20.0 ANESTHESIA OF SKIN 03/14/2016 CHA MURPHY EDUCATIONAL PROGRAM ASSISTANT Ot E04.2 NONTOXIC MULTINODULAR GOITER 12/01/2016 SIMON WONG EDUCATIONAL PROGRAM ASSISTANT Ot 241.0 NONTOX UNINODULAR GOITER 12/01/2016 SIMON WONG EDUCATIONAL PROGRAM ASSISTANT Ot V76.12 OTH SCREEN MAMMO-MALIGN NEOPLASM OF [place] 12/01/2016 SIMON WONG APRN Ot 241.0 NONTOX UNINODULAR GOITER 12/01/2016 CYNTHIA [...] OTHER INTERVERTEBRAL DISC DEGENERATION, 12/01/2016 CHA MURPHY EDUCATIONAL PROGRAM ASSISTANT Ot R10.11 RIGHT UPPER QUADRANT PAIN 12/01/2016 DELANEY JULIAN, HEENA Walters Ot M48.02 SPINAL STENOSIS, CERVICAL REGION 12/01/2016 Ot M54.2 CERVICALGIA 12/01/2016 Ot R20.0 ANESTHESIA OF SKIN 12/01/2016 CHA MURPHY EDUCATIONAL PROGRAM ASSISTANT Ot E04.2 NONTOXIC MULTINODULAR GOITER 12/01/2016 CHA MURPHY EDUCATIONAL PROGRAM ASSISTANT Ot E04.2 NONTOXIC MULTINODULAR GOITER 12/01/2016 MARVIN SIMON A EDUCATIONAL PROGRAM ASSISTANT Ot 241.0 NONTOX UNINODULAR GOITER 12/01/2016 MARVIN SIMON Tabares EDUCATIONAL PROGRAM ASSISTANT Ot V76.12 OTH SCREEN MAMMO-MALIGN NEOPLASM OF [place] 12/01/2016 MARVIN SIMON Tabares EDUCATIONAL PROGRAM ASSISTANT Ot 241.0 NONTOX UNINODULAR GOITER 12/01/2016 MARC DOCYNTHIA Ot E04.1 NONTOXIC SINGLE THYROID NODULE 12/01/2016 [...] OTHER INTERVERTEBRAL DISC DEGENERATION, 12/01/2016 CHA MURPHY EDUCATIONAL PROGRAM ASSISTANT Ot R10.11 RIGHT UPPER QUADRANT PAIN 12/01/2016 DELANEY JULIAN, HEENA Walters Ot M48.02 SPINAL STENOSIS, CERVICAL REGION 12/01/2016 Ot M54.2 CERVICALGIA 12/01/2016 Ot R20.0 ANESTHESIA OF SKIN 12/01/2016 CHA MURPHY EDUCATIONAL PROGRAM ASSISTANT Ot E04.2 NONTOXIC MULTINODULAR GOITER 12/01/2016 CHA MURPHY EDUCATIONAL PROGRAM ASSISTANT Ot E04.2 NONTOXIC MULTINODULAR GOITER 12/01/2016 SANGEETA JULIAN, LILIAN Willams Ot E11.9 TYPE 2 DIABETES MELLITUS WITHOUT COMPLIC 12/01/2016 LILIAN RUTHERFORD MD Ot I10 ESSENTIAL (PRIMARY) HYPERTENSION 12/01/2016 LILIAN RUTHERFORD MD Ot K57.30 DVRTCLOS OF LG INT W/O PERFORATION OR AB 12/01/2016 LILIAN RUTHERFORD MD Ot R10.30 LOWER ABDOMINAL PAIN, UNSPECIFIED 12/01/2016 SANGEETA JULIAN, LILIAN Willams Ot Z79.899 OTHER [facility] (CURRENT) DRUG THERAPY 12/01/2016 SANGEETA JULIAN, LILIAN Willams Ot Z90.710 ACQUIRED ABSENCE OF BOTH CERVIX AND UTER 12/01/2016 MARVIN SIMON Rayshawn EDUCATIONAL PROGRAM ASSISTANT Ot 241.0 NONTOX UNINODULAR GOITER 12/01/2016 MARVIN SIMON A EDUCATIONAL PROGRAM ASSISTANT Ot V76.12 OTH SCREEN MAMMO-MALIGN NEOPLASM OF [place] 12/01/2016 MARVIN SIMON A EDUCATIONAL PROGRAM ASSISTANT Ot 241.0 NONTOX UNINODULAR GOITER 12/01/2016 [...] OTHER INTERVERTEBRAL DISC DEGENERATION, 12/01/2016 CHA MURPHY EDUCATIONAL PROGRAM ASSISTANT Ot R10.11 RIGHT UPPER QUADRANT PAIN 12/01/2016 DELANEY JULIAN, HEENA Walters Ot M48.02 SPINAL STENOSIS, CERVICAL REGION 12/01/2016 Ot M54.2 CERVICALGIA 12/01/2016 Ot R20.0 ANESTHESIA OF SKIN 12/01/2016 CHA MURPHY EDUCATIONAL PROGRAM ASSISTANT Ot E04.2 NONTOXIC MULTINODULAR GOITER 12/01/2016 CHA MURPHY EDUCATIONAL PROGRAM ASSISTANT Ot E04.2 NONTOXIC MULTINODULAR GOITER 12/29/2016 JESSIE DEE DO Ot R10.11 RIGHT UPPER QUADRANT PAIN 12/29/2016 JESSIE DEE DO Ot R10.13 EPIGASTRIC PAIN 12/29/2016 JESSIE DEE DO Ot Z01.818 ENCOUNTER FOR OTHER PREPROCEDURAL EXAMIN 12/30/2016 SIMON WONG EDUCATIONAL PROGRAM ASSISTANT Ot 241.0 NONTOX UNINODULAR GOITER 12/30/2016 SIMON WONG EDUCATIONAL PROGRAM ASSISTANT Ot V76.12 OTH SCREEN MAMMO-MALIGN NEOPLASM OF [place] 12/30/2016 SIMON WONG EDUCATIONAL PROGRAM ASSISTANT Ot 241.0 NONTOX UNINODULAR GOITER 12/30/2016 [...] OTHER INTERVERTEBRAL DISC DEGENERATION, 12/30/2016 CHA MURPHY EDUCATIONAL PROGRAM ASSISTANT Ot R10.11 RIGHT UPPER QUADRANT PAIN 12/30/2016 DELANEY JULIAN, HEENA Walters Ot M48.02 SPINAL STENOSIS, CERVICAL REGION 12/30/2016 Ot M54.2 CERVICALGIA 12/30/2016 Ot R20.0 ANESTHESIA OF SKIN 12/30/2016 CHA MURPHY EDUCATIONAL PROGRAM ASSISTANT Ot E04.2 NONTOXIC MULTINODULAR GOITER 12/30/2016 CHA MURPHY EDUCATIONAL PROGRAM ASSISTANT Ot E04.2 NONTOXIC MULTINODULAR GOITER 12/30/2016 SIMON WONG EDUCATIONAL PROGRAM ASSISTANT Ot 241.0 NONTOX UNINODULAR GOITER 12/30/2016 SIMON WONG EDUCATIONAL PROGRAM ASSISTANT Ot V76.12 OTH SCREEN MAMMO-MALIGN NEOPLASM OF [place] 12/30/2016 SIMON WONG EDUCATIONAL PROGRAM ASSISTANT Ot 241.0 NONTOX UNINODULAR GOITER 12/30/2016 [...] Ot E04.2 NONTOXIC MULTINODULAR GOITER 12/30/2016 CHA MURHPY APRN Ot E04.2 NONTOXIC MULTINODULAR GOITER 01/03/2017 [...] 01/03/2017 JESSIE DEE DO Ot Z79.899 OTHER [facility] (CURRENT) DRUG THERAPY 01/03/2017 SIMON WONG EDUCATIONAL PROGRAM ASSISTANT Ot 241.0 NONTOX UNINODULAR GOITER 01/03/2017 SIMON WONG EDUCATIONAL PROGRAM ASSISTANT Ot V76.12 OTH SCREEN MAMMO-MALIGN NEOPLASM OF [place] 01/03/2017 SIMON WONG EDUCATIONAL PROGRAM ASSISTANT Ot 241.0 NONTOX UNINODULAR GOITER 01/03/2017 CYNTHIA TRAN DO Ot E04.1 NONTOXIC SINGLE THYROID NODULE 01/03/2017 [...] OTHER INTERVERTEBRAL DISC DEGENERATION, 01/03/2017 CHA MURPHY EDUCATIONAL PROGRAM ASSISTANT Ot R10.11 RIGHT UPPER QUADRANT PAIN 01/03/2017 DELANEY JULIAN, HEENA Walters Ot M48.02 SPINAL STENOSIS, CERVICAL REGION 01/03/2017 Ot M54.2 CERVICALGIA 01/03/2017 Ot R20.0 ANESTHESIA OF SKIN 01/03/2017 CAH MURPHY EDUCATIONAL PROGRAM ASSISTANT Ot E04.2 NONTOXIC MULTINODULAR GOITER 01/03/2017 HCA MURPHY EDUCATIONAL PROGRAM ASSISTANT Ot E04.2 NONTOXIC MULTINODULAR GOITER 01/03/2017 MEMO DO WILLY K Ot E11.9 TYPE 2 DIABETES MELLITUS WITHOUT COMPLIC 01/03/2017 MEMO DO WILLY K Ot E66.9 OBESITY, UNSPECIFIED 01/03/2017 MEMO DO WILLY K Ot I10 ESSENTIAL (PRIMARY) HYPERTENSION 01/03/2017 MEMOTaylor KAY WILLY K Ot K21.9 GASTRO-ESOPHAGEAL REFLUX DISEASE WITHOUT 01/03/2017 MEMOTaylor KAY WILLY K Ot K29.70 GASTRITIS, UNSPECIFIED, WITHOUT BLEEDING 01/03/2017 MEMO DO, WILLY K Ot M54.2 CERVICALGIA 01/03/2017 MEMO AUNG KAYA K Ot R07.89 OTHER CHEST PAIN 01/03/2017 AUNG HAMPTON DOA K Ot Z91.19 PATIENT'S NONCOMPLIANCE W OT [...] 01/05/2017 JESSIE DEE DO Ot Z79.899 OTHER [facility] (CURRENT) DRUG THERAPY 01/05/2017 MEMO KAY WILLY K Ot E11.9 TYPE 2 DIABETES MELLITUS WITHOUT COMPLIC 01/05/2017 AUNG HAMPTON DOA K Ot E66.9 OBESITY, UNSPECIFIED 01/05/2017 MEMO DO WILLY K Ot I10 ESSENTIAL (PRIMARY) HYPERTENSION 01/05/2017 MEMO DO WILLY K Ot K21.9 GASTRO-ESOPHAGEAL REFLUX DISEASE WITHOUT 01/05/2017 MEMO , WILLY K Ot K29.70 GASTRITIS, UNSPECIFIED, WITHOUT BLEEDING 01/05/2017 MEMO AUNG KAYA K Ot M54.2 CERVICALGIA 01/05/2017 MEMO WILLY Ot R07.89 OTHER CHEST PAIN 01/05/2017 WILLY HAMPTON DO Ot Z91.19 PATIENT'S NONCOMPLIANCE W OTH MEDICAL TR 01/10/2017 JESSIE DEE DO Ot E11.9 TYPE 2 DIABETES MELLITUS WITHOUT COMPLIC 01/10/2017 JESSIE DEE DO Ot E66.01 MORBID (SEVERE) OBESITY DUE TO EXCESS CA 01/10/2017 JESSIE DEE DO Ot G47.33 OBSTRUCTIVE SLEEP APNEA (ADULT) (PEDIATR 01/10/2017 JESSIE DEE DO Ot I08.3 COMB RHEUMATIC DISORD OF MITRAL, AORTIC 01/10/2017 JESSIE DEE DO Ot I10 ESSENTIAL (PRIMARY) HYPERTENSION 01/10/2017 JESSIE EDE DO Ot K29.70 GASTRITIS, UNSPECIFIED, WITHOUT BLEEDING 01/10/2017 JESSIE DEE DO Ot K44.9 DIAPHRAGMATIC HERNIA WITHOUT OBSTRUCTION 01/10/2017 JESSIE DEE DO Ot Z68.37 BODY MASS INDEX (BMI) 37.0-37.9, ADULT 01/10/2017 JESSIE DEE DO Ot Z79.899 OTHER [facility] (CURRENT) DRUG THERAPY 03/23/2017 SIMON WONG EDUCATIONAL PROGRAM ASSISTANT Ot 241.0 NONTOX UNINODULAR GOITER 03/23/2017 SIMON WONG EDUCATIONAL PROGRAM ASSISTANT Ot V76.12 OT SCREEN MAMMO-MALIGN NEOPLASM OF [place] 03/23/2017 SIMON WONG EDUCATIONAL PROGRAM ASSISTANT Ot 241.0 NONTOX UNINODULAR GOITER 03/23/2017 [...] OTHER INTERVERTEBRAL DISC DEGENERATION, 03/23/2017 CHA MURPHY EDUCATIONAL PROGRAM ASSISTANT Ot R10.11 RIGHT UPPER QUADRANT PAIN 03/23/2017 DELANEY JULIAN, HEENA Walters Ot M48.02 SPINAL STENOSIS, CERVICAL REGION 03/23/2017 Ot M54.2 CERVICALGIA 03/23/2017 Ot R20.0 ANESTHESIA OF SKIN 03/23/2017 CHA MURPHY EDUCATIONAL PROGRAM ASSISTANT Ot E04.2 NONTOXIC MULTINODULAR GOITER 03/23/2017 CHA MURPHY EDUCATIONAL PROGRAM ASSISTANT Ot E04.2 NONTOXIC MULTINODULAR GOITER 05/07/2017 JEANNINE JULIAN, SARAH Ahuamda Ot R07.89 OTHER CHEST PAIN 10/30/2017 SIMON WONG EDUCATIONAL PROGRAM ASSISTANT Ot 241.0 NONTOX UNINODULAR GOITER 10/30/2017 SIMON WONG EDUCATIONAL PROGRAM ASSISTANT Ot V76.12 OTH SCREEN MAMMO-MALIGN NEOPLASM OF [place] 10/30/2017 SIMON WONG EDUCATIONAL PROGRAM ASSISTANT Ot 241.0 NONTOX UNINODULAR GOITER 10/30/2017 MARC CYNTHIA KAY Ot E04.1 NONTOXIC SINGLE THYROID NODULE 10/30/2017 [...] OTHER INTERVERTEBRAL DISC DEGENERATION, 10/30/2017 CHA MURPHY EDUCATIONAL PROGRAM ASSISTANT Ot R10.11 RIGHT UPPER QUADRANT PAIN 10/30/2017 DELANEY JULIAN, HEENA Walters Ot M48.02 SPINAL STENOSIS, CERVICAL REGION 10/30/2017 Ot M54.2 CERVICALGIA 10/30/2017 Ot R20.0 ANESTHESIA OF SKIN 10/30/2017 MURPHYCHA Shrestha Steffen WALL Ot E04.2 NONTOXIC MULTINODULAR GOITER 10/30/2017 CHA [...] 11:08 URINE CULTURE RESULTS 10,000/ML - 100,000/ML NRG Complete blood count (CBC) with automated white [...] reactive protein measurement (mass/volume) 6.01 mg/dL 0.00-0.50 Complete blood count (CBC) with automated white blood cell (WBC) differential - 02/23/19 08:10 Blood leukocytes automated count (number/volume) 4.7 10*3/uL 4.3-11.0 Blood erythrocytes automated count (number/volume) 3.89 10*6/uL 4.35-5.85 Venous blood hemoglobin measurement (mass/volume) 11.5 g/dL 11.5-16.0 Blood hematocrit (volume fraction) 36 % 35-52 Automated erythrocyte mean corpuscular volume 92 [foz_us] 80-99 Automated erythrocyte mean corpuscular hemoglobin (mass per erythrocyte) 30 pg 25-34 Automated erythrocyte mean corpuscular hemoglobin concentration measurement (mass/volume) 32 g/dL 32-36 Automated erythrocyte distribution width ratio 13.3 % 10.0- 14.5 Automated blood platelet count (count/volume) 178 10*3/uL 130-400 Automated blood platelet mean volume measurement 11.2 [foz_us] 7.4-10.4 Automated blood neutrophils/100 leukocytes 59 % 42-75 Automated blood lymphocytes/100 leukocytes 31 % 12-44 Blood monocytes/100 leukocytes 9 % 0-12 Automated blood eosinophils/100 leukocytes 1 % 0-10 Automated blood basophils/100 leukocytes 0 % 0-10 Blood neutrophils automated count (number/volume) 2.8 10*3 1.8-7.8 Blood lymphocytes automated count (number/volume) 1.5 10*3 1.0-4.0 Blood monocytes automated count (number/volume) 0.4 10*3 0.0- 1.0 Automated eosinophil count 0.1 10*3/uL 0.0-0.3 Automated blood basophil count (count/volume) 0.0 10*3/uL 0.0-0.1 Comprehensive metabolic panel - 02/23/19 08:10 Serum or plasma sodium measurement (moles/volume) 141 mmol/L 135-145 Serum or plasma potassium measurement (moles/volume) 3.7 mmol/L 3.6-5.0 Serum or plasma chloride measurement (moles/volume) 109 mmol/L 98-107 Carbon dioxide 23 mmol/L 21-32 Serum or plasma anion gap determination (moles/volume) 9 mmol/L 5-14 Serum or plasma urea nitrogen measurement (mass/volume) 7 mg/dL 7-18 Serum or plasma creatinine measurement (mass/volume) 0.72 mg/dL 0.60-1.30 Serum or plasma urea nitrogen/creatinine mass ratio 10 NRG Serum or plasma creatinine measurement with calculation of estimated glomerular filtration rate > NRG Serum or plasma glucose measurement (mass/volume) 106 mg/dL 70-105 Serum or plasma calcium measurement (mass/volume) 8.7 mg/dL 8.5-10.1 Serum or plasma total bilirubin measurement (mass/volume) 0.7 mg/dL 0.1-1.0 Serum or plasma alkaline phosphatase measurement (enzymatic activity/volume) 105 U/L 40-136 Serum or plasma aspartate aminotransferase measurement (enzymatic activity/volume) 17 U/L 5-34 Serum or plasma alanine aminotransferase measurement (enzymatic activity/volume) 18 U/L 0-55 Serum or plasma protein measurement (mass/volume) 6.3 g/dL 6.4-8.2 Serum or plasma albumin measurement (mass/volume) 3.5 g/dL 3.2-4.5 CALCIUM CORRECTED 9.1 mg/dL 8.5-10.1 Serum or plasma choriogonadotropin ( test) detection - 02/23/19 08:10 Serum or plasma choriogonadotropin ( test) detection NEGATIVE NEGATIVE Complete blood count (CBC) with automated white blood cell (WBC) differential - 02/24/19 04:41 Blood leukocytes automated count (number/volume) 3.9 10*3/uL 4.3-11.0 Blood erythrocytes automated count (number/volume) 3.79 10*6/uL 4.35-5.85 Venous blood hemoglobin measurement (mass/volume) 11.3 g/dL 11.5-16.0 Blood hematocrit (volume fraction) 35 % 35-52 Automated erythrocyte mean corpuscular volume 93 [foz_us] 80-99 Automated erythrocyte mean corpuscular hemoglobin (mass per erythrocyte) 30 pg 25-34 Automated erythrocyte mean corpuscular hemoglobin concentration measurement (mass/volume) 32 g/dL 32-36 Automated erythrocyte distribution width ratio 13.2 % 10.0- 14.5 Automated blood platelet count (count/volume) 185 10*3/uL 130-400 Automated blood platelet mean volume measurement 11.3 [foz_us] 7.4-10.4 Automated blood neutrophils/100 leukocytes 59 % 42-75 Automated blood lymphocytes/100 leukocytes 29 % 12-44 Blood monocytes/100 leukocytes 9 % 0-12 Automated blood eosinophils/100 leukocytes 3 % 0-10 Automated blood basophils/100 leukocytes 0 % 0-10 Blood neutrophils automated count (number/volume) 2.3 10*3 1.8-7.8 Blood lymphocytes automated count (number/volume) 1.1 10*3 1.0-4.0 Blood monocytes automated count (number/volume) 0.4 10*3 0.0- 1.0 Automated eosinophil count 0.1 10*3/uL 0.0-0.3 Automated blood basophil count (count/volume) 0.0 10*3/uL 0.0-0.1 Whole blood basic metabolic panel - 02/24/19 04:41 Serum or plasma sodium measurement (moles/volume) 138 mmol/L 135-145 Serum or plasma potassium measurement (moles/volume) 3.5 mmol/L 3.6-5.0 Serum or plasma chloride measurement (moles/volume) 107 mmol/L 98-107 Carbon dioxide 21 mmol/L 21-32 Serum or plasma anion gap determination (moles/volume) 10 mmol/L 5-14 Serum or plasma urea nitrogen measurement (mass/volume) 5 mg/dL 7-18 Serum or plasma creatinine measurement (mass/volume) 0.70 mg/dL 0.60-1.30 Serum or plasma urea nitrogen/creatinine mass ratio 7 NRG Serum or plasma creatinine measurement with calculation of estimated glomerular filtration rate > NRG Serum or plasma glucose measurement (mass/volume) 97 mg/dL 70-105 Serum or plasma calcium measurement (mass/volume) 8.7 mg/dL 8.5-10.1 Methicillin resistant Staphylococcus aureus (MRSA) screening culture - 02/24/19 14:00 Methicillin resistant Staphylococcus aureus (MRSA) screening culture NEG NRG Complete blood count (CBC) with automated white blood cell (WBC) differential - 02/25/19 05:10 Blood leukocytes automated count (number/volume) 4.3 10*3/uL 4.3-11.0 Blood erythrocytes automated count (number/volume) 4.02 10*6/uL 4.35-5.85 Venous blood hemoglobin measurement (mass/volume) 12.0 g/dL 11.5-16.0 Blood hematocrit (volume fraction) 37 % 35-52 Automated erythrocyte mean corpuscular volume 93 [foz_us] 80-99 Automated erythrocyte mean corpuscular hemoglobin (mass per erythrocyte) 30 pg 25-34 Automated erythrocyte mean corpuscular hemoglobin concentration measurement (mass/volume) 32 g/dL 32-36 Automated erythrocyte distribution width ratio 12.9 % 10.0- 14.5 Automated blood platelet count (count/volume) 188 10*3/uL 130-400 Automated blood platelet mean volume measurement 11.4 [foz_us] 7.4-10.4 Automated blood neutrophils/100 leukocytes 62 % 42-75 Automated blood lymphocytes/100 leukocytes 25 % 12-44 Blood monocytes/100 leukocytes 10 % 0-12 Automated blood eosinophils/100 leukocytes 2 % 0-10 Automated blood basophils/100 leukocytes 1 % 0-10 Blood neutrophils automated count (number/volume) 2.7 10*3 1.8-7.8 Blood lymphocytes automated count (number/volume) 1.1 10*3 1.0-4.0 Blood monocytes automated count (number/volume) 0.4 10*3 0.0- 1.0 Automated eosinophil count 0.1 10*3/uL 0.0-0.3 Automated blood basophil count (count/volume) 0.0 10*3/uL 0.0-0.1 Whole blood basic metabolic panel - 02/25/19 05:10 Serum or plasma sodium measurement (moles/volume) 139 mmol/L 135-145 Serum or plasma potassium measurement (moles/volume) 3.7 mmol/L 3.6-5.0 Serum or plasma chloride measurement (moles/volume) 105 mmol/L 98-107 Carbon dioxide 23 mmol/L 21-32 Serum or plasma anion gap determination (moles/volume) 11 mmol/L 5-14 Serum or plasma urea nitrogen measurement (mass/volume) 6 mg/dL 7-18 Serum or plasma creatinine measurement (mass/volume) 0.80 mg/dL 0.60-1.30 Serum or plasma urea nitrogen/creatinine mass ratio 8 NRG Serum or plasma creatinine measurement with calculation of estimated glomerular filtration rate > NRG Serum or plasma glucose measurement (mass/volume) 95 mg/dL 70-105 Serum or plasma calcium measurement (mass/volume) 9.2 mg/dL 8.5-10.1 Encounters ACCT No. Visit Date/Time Discharge Status Pt. Type Provider Facility Loc./Unit Complaint [id number] 02/23/2019 04:18:00 02/26/2019 15:02:00 DIS Inpatient DONNA MD, MARK Angel [facility] 4TH DIVERTICULITIS,NAUSEA [id number] 01/13/2017 15:21:00 01/13/2017 23:59:59 CLS Preadmit CHA MURPHY APRN [facility] RAD Z86.39 [id number] 01/03/2017 20:51:00 01/03/2017 23:21:00 DIS Emergency MEMO DOWILLY [facility] ER NECK/BACK/CHEST PAIN [id number] 01/03/2017 10:14:00 01/03/2017 12:35:00 DIS Outpatient DEE JESSIE KAY [facility] ENDO EPIGASTRIC RUQ ABDOMINAL PAIN [id number] 12/29/2016 05:39:00 12/29/2016 15:56:00 DIS Outpatient DEE JESSIE KAY [facility] PREOP EPISGRATIC RUQ ABDOMINAL PAIN [id number] 12/01/2016 09:34:00 12/01/2016 14:20:00 DIS Emergency SANGEETA JULIAN, LILIAN Willams [facility] ER ABD PAIN [id number] 02/02/2016 12:22:00 02/02/2016 23:59:59 CLS Outpatient CHA MURPHY APRN [facility] RAD MULTIPLE THYROID NODULES [id number] 01/22/2016 19:45:00 01/22/2016 22:32:00 DIS Emergency MEMO WILLY KAY [facility] ER SOA [id number] 01/19/2016 10:56:00 01/19/2016 23:59:59 CLS Outpatient CHA MURPHY APRN [facility] RAD MULTIPLE THYROID NODULE [id number] 12/25/2015 10:41:00 12/25/2015 23:59:59 CLS Outpatient DELANEY JULIAN, HEENA Walters [facility] RAD CERVICAL STENOSIS [id number] 12/25/2015 12:15:00 12/25/2015 13:38:00 DIS Emergency NIESHA VILLARREAL APRN [facility] ER SHAKEY [id number] 12/12/2015 17:13:00 12/12/2015 18:57:00 DIS Emergency DEB JULIAN, SHANA Mckeon [facility] ER CP [id number] 12/08/2015 10:06:00 12/08/2015 12:25:00 DIS Outpatient JESSIE DEE DO [facility] SDC EPIGASTRIC PAIN [id number] 12/03/2015 06:05:00 12/03/2015 13:37:00 DIS Outpatient JESSIE DEE DO [facility] PREOP EPIGASTRIC PAIN [id number] 12/02/2015 07:32:00 12/02/2015 23:59:59 CLS Outpatient CHA MURPHY APRN [facility] RAD RUQ PAIN [id number] 11/30/2015 13:11:00 11/30/2015 16:45:00 DIS Emergency LILIAN RUTHERFORD MD [facility] ER ABD PAIN [id number] 11/27/2015 12:38:00 11/27/2015 23:59:59 CLS Outpatient JORDIN JULIAN, ERIKA Kirby [facility] RAD LOW BACK PAIN [id number] 10/29/2015 19:52:00 10/30/2015 07:06:00 DIS Outpatient ZAYDA ABREU DO [facility] SLEEP SNORING,CHOKING/GASPING DURING SLEEP,HTN,JOYCE [id number] 10/28/2015 13:32:00 10/28/2015 23:59:59 CLS Outpatient ZAYDA ABREU DO [facility] RT SOB,OBESITY,ANXIETY,SCHIZOPHRENIA [id number] 10/16/2015 18:46:00 10/18/2015 16:51:00 DIS Inpatient RENE JULIAN, JESÚS Kirby [facility] 4TH CHEST PAIN [id number] 10/16/2015 09:56:00 10/16/2015 14:29:00 DIS Emergency SARAH PAEZ MD [facility] ER WHOLE LEFT SIDE PAIN [id number] 09/30/2015 07:33:00 09/30/2015 23:59:59 CLS Outpatient ZAYDA ABREU DO [facility] RAD SOB,OBESITY,ANXIETY [id number] 09/14/2015 12:33:00 09/15/2015 09:30:00 DIS Outpatient ARELIS DESIR MD [facility] CATH CHEST PAIN [id number] 08/19/2015 12:28:00 08/19/2015 14:45:00 DIS Emergency MEMO WILLY KAY [facility] ER CHEST PAIN [id number] 08/10/2015 12:04:00 08/11/2015 13:58:00 DIS Inpatient JESSICA GARCIA MD [facility] CSD CHEST PAIN HTN [id number] 05/28/2015 12:16:00 05/28/2015 23:59:59 CLS Outpatient CYNTHIA TRAN DO [facility] RAD THYROID NODULE [id number] 05/06/2015 02:47:00 05/06/2015 05:59:00 DIS Emergency MEMOWILLY Vazquez DO [facility] ER LEG,BACK PAIN [id number] 05/05/2015 09:54:00 05/05/2015 23:59:59 CLS Outpatient SIMON WONG EDUCATIONAL PROGRAM ASSISTANT [facility] CARD THYROID NODULE [id number] 04/22/2015 03:39:00 04/22/2015 06:30:00 DIS Emergency VALENTIN ARMENDARIZ MD [facility] ER HEAD STOMACH PAIN [id number] 04/21/2015 12:48:00 04/21/2015 23:59:59 CLS Outpatient SIMON WONG EDUCATIONAL PROGRAM ASSISTANT [facility] RAD SCREENING,HX OF THYROID NODULE [id number] 01/19/2016 07:01:00 Document Registration [id number] 11/06/2015 11:13:00 Document Registration [id number] 05/22/2015 18:30:00 Document Registration [id number] 06/07/2015 06:30:03 06/07/2015 06:30:04 DIS Outpatient [id number] 08/02/2014 14:07:42 Document Registration [id number] 07/04/2014 11:16:34 Document Registration [id number] 06/23/2014 13:45:30 Document Registration [id number] 06/23/2014 13:45:29 Document Registration [id number] 06/23/2014 13:45:28 Document Registration [id number] 06/23/2014 13:45:27 Document Registration [id number] 06/23/2014 13:45:26 Document Registration [id number] 06/23/2014 13:19:54 Document Registration [id number] 06/23/2014 13:19:46 Document Registration [id number] 06/23/2014 13:19:45 Document Registration [id number] 06/23/2014 13:19:44 Document Registration [id number] 06/23/2014 13:19:43 Document Registration [id number] 06/23/2014 13:00:54 Document Registration [id number] 06/02/2014 15:18:21 Document Registration [id number] 05/26/2014 09:50:51 Document Registration [id number] 05/22/2014 13:54:15 Document Registration [id number] 05/22/2014 13:48:31 Document Registration [id number] 05/22/2014 13:48:23 Document Registration [id number] 05/22/2014 13:48:15 Document Registration [id number] 05/22/2014 13:48:04 Document Registration [id number] 05/05/2014 13:31:45 Document Registration [id number] 05/05/2014 13:31:37 Document Registration [id number] 05/05/2014 13:31:30 Document Registration [id number] 04/28/2014 12:51:40 Document Registration [id number] 04/28/2014 12:51:32 Document Registration [id number] 04/28/2014 12:51:24 Document Registration [id number] 04/28/2014 12:51:17 Document Registration [id number] 04/28/2014 12:51:06 Document Registration [id number] 04/27/2014 06:10:41 Document Registration [id number] 04/26/2014 06:11:21 Document Registration [id number] 04/26/2014 06:11:20 Document Registration [id number] 04/26/2014 06:11:19 Document Registration [id number] 04/26/2014 06:11:18 Document Registration [id number] 04/26/2014 06:11:12 Document Registration [id number] 04/26/2014 06:11:11 Document Registration [id number] 04/26/2014 06:11:10 Document Registration [id number] 04/26/2014 06:11:09 Document Registration [id number] 04/26/2014 06:11:03 Document Registration [id number] 04/26/2014 06:11:02 Document Registration [id number] 04/26/2014 06:11:01 Document Registration [id number] 04/26/2014 06:10:58 Document Registration [id number] 04/17/2014 15:53:58 Document Registration [id number] 04/10/2014 18:10:56 Document Registration [id number] 05/02/2016 16:42:28 05/02/2016 16:42:28 DIS Outpatient [facility]
== END 2019-02-26 14:16 | disposition home or self-care (01) ==
LOC: EDUNIT# 21:53 → ER 21:54 → 4TH 21:55 → UNDOADMOB 02-23 04:18 → 4TH 02-23 04:18 → UNDODISOB 02-26 15:02
PROVIDERS: ADMIT Family Medicine; ATTEND Family Medicine
DX: K25.9 Gastric ulcer, unspecified as acute or chronic, without hemorrhage or perforation (principal); K29.70 Gastritis, unspecified, without bleeding; G89.29 Other chronic pain; R10.10 Upper abdominal pain, unspecified; F20.9 Schizophrenia, unspecified; K59.09 Other constipation; I11.0 Hypertensive heart disease with heart failure; I50.9 Heart failure, unspecified; E87.6 Hypokalemia; I42.9 Cardiomyopathy, unspecified; G43.909 Migraine, unspecified, not intractable, without status migrainosus; K21.9 Gastro-esophageal reflux disease without esophagitis; E11.9 Type 2 diabetes mellitus without complications; D64.9 Anemia, unspecified; M54.9 Dorsalgia, unspecified; Z90.89 Acquired absence of other organs; Z88.2 Allergy status to sulfonamides; Z88.8 Allergy status to other drugs, medicaments and biological substances; Z91.048 Other nonmedicinal substance allergy status; Z90.710 Acquired absence of both cervix and uterus; Z90.49 Acquired absence of other specified parts of digestive tract; Z90.721 Acquired absence of ovaries, unilateral; Z87.19 Personal history of other diseases of the digestive system; E66.01 Morbid (severe) obesity due to excess calories; Z68.38 Body mass index [BMI] 38.0-38.9, adult
CPT/HCPCS: 36415; 74019; 74177; 80048; 80053; 83690; 84703; 85025; 86141; 87081; 88305; 96361; 96365; 96367; 96368; 96375; 96376; G0378

== ENCOUNTER 2023-02-27 21:32 | Observation (INO) | payer MEDICAID, MEDICARE ==
[~2023-02-27] VITALS: Ht 160 cm; Wt 101.3 kg
[~2023-02-27 21:32] MED LIST changes: +ACET-2267 PO; +ACHD5005 PO; +ALBU8.5H6 IH; +CIPR-225 PO; +CYCL10TA25 PO; -HYDR-3062 PO; +IBUP-2473 PO; -LISI-552 PO; +LISI20TA26 PO; +METR-145 PO; +MULT-1067 PO; -PANT40TA3 PO; +PANT40TA52 PO; -RT-ALBUINH IH
[2023-02-27] MEDS ORDERED: fentaNYL INJ 100 MCG/2 ML AMP IVP STA ×2 (21:50→22:32)
[2023-02-27] MEDS ORDERED: LACTATED RINGERS 1,000 ML IV STA ×2 (21:50→23:58)
[2023-02-27] MEDS ORDERED: ONDANSETRON 4 MG/2 ML (SDV) Z0FRAN IVP ONE (22:00)
[2023-02-27 22:04] LABS: EOSINOPHILS % (AUTO) 0 % (0-10); HEMOGLOBIN 12.9 g/dL (11.5-16.0)
[2023-02-27 22:05] LABS: BASOPHILS % (AUTO) 0 % (0-10); HEMATOCRIT 40 % (35-52); LYMPHOCYTES # (AUTO) 0.9 10^3/uL (1.0-4.0); LYMPHOCYTES % (AUTO) 14 % (12-44); MEAN CORPUSCULAR HEMOGLOBIN 31 pg (25-34); MEAN CORPUSCULAR HGB CONC 33 g/dL (32-36); MEAN CORPUSCULAR VOLUME 95 fL (80-99); MEAN PLATELET VOLUME 10.8 fL (9.0-12.2); MONOCYTES # (AUTO) 0.3 10^3/uL (0.0-1.0); MONOCYTES % (AUTO) 4 % (0-12); NEUTROPHILS # (AUTO) 5.4 10^3/uL (1.8-7.8); NEUTROPHILS % (AUTO) 81 % (42-75); PLATELET COUNT 194 10^3/uL (130-400); WHITE BLOOD COUNT 6.7 10^3/uL (4.3-11.0)
[2023-02-27 22:12] LABS: SMEAR SCAN COMMENT YES
--- NOTE | 2023-02-27 22:13 | ED Abdominal Pain ---
General Chief Complaint: Abdominal/GI Problems Stated Complaint: ABD PAIN/SHAKEY Nursing Triage Note: PT ARRRIVED POV WITH CC OF RIGHT UPPER ABD PAIN X2DAYS, DIARRHEA, AND NUMBNESS IN LEGS THAT STARTED TODAY. PT STATES THAT SHE HAS HAD 10 STOOLS TODAY. Source of Information: Patient Exam Limitations: No Limitations History of Present Illness Date Seen by Provider: Feb 27, 2023 Time Seen by Provider: 21:40 Initial Comments Here with report of at least 10 episodes of diarrhea stools today and upper abdominal pain over the past 2 days. Feeling numb and weak today especially in her legs and that caused her to present for further evaluation. Does have history of diverticular disease. She has had previous cholecystectomy and appendectomy as well as hysterectomy. Denies blood in her urine or stool. Denies fever. Denies dysuria. Primary care physician is local primary care doctor in [place]. Timing/Duration: 1-2 Days Severity/Quality: Moderate, Cramping, Sharp Location: RUQ, Epigastric Radiation: LUQ Activities at Onset: None Modifying Factors: Improves With Defecating; Worsens With Eating, Worsens With Palpation Associated Symptoms: No Back Pain, No Chest Pain, No Fever/Chills; Nausea/Vomiting; No Shortness of Air; Weakness Allergies and Home Medications Allergies Coded Allergies: Sulfa (Sulfonamide Antibiotics) (Verified Allergy, Intermediate, hives, 02/23/19) risperidone (Verified Allergy, Unknown, 02/23/19) topiramate (Verified Allergy, Unknown, 05/22/15) tramadol (Verified Allergy, Unknown, 04/22/15) trazodone (Verified Allergy, Unknown, 02/23/19) Uncoded Allergies: SILK TAPE (Adverse Reaction, Unknown, 05/22/15) Patient Home Medication List Home Medication List Reviewed: Yes Acetaminophen (Tylenol Extra Strength) 500 Mg Tablet, 500 MG PO Q6H PRN for PAIN-MILD, (Reported) Entered as Reported by: CASEY RYAN on 02/25/19 151 Ciprofloxacin HCl (Cipro) 500 Mg Tablet, 500 MG PO TWICE A DAY Prescribed by: PANFILO MONTEZ on 02/26/19 1420 Cyclobenzaprine HCl (Cyclobenzaprine HCl) 10 Mg Tablet, 10 MG PO TID PRN for MUSCLE SPASMS, (Reported) Entered as Reported by: CASEY RYAN on 02/25/19 151 Ibuprofen (Ibuprofen) 200 Mg Tablet, 400 MG PO Q6H PRN for PAIN-MILD, (Reported) Entered as Reported by: CASEY RYAN on 02/25/191516 Metronidazole (Metronidazole) 500 Mg Tablet, 500 MG PO 3 times a day Prescribed by: PANFILO MONTEZ on 02/26/19 1420 Multivitamin/Iron/Folic Acid (Centrum Adults Tablet) 1 Each Tablet, 1 EACH PO DAILY, (Reported) Entered as Reported by: CASEY RYAN on 02/25/191516 Review of Systems Review of Systems Constitutional: chills; No fever; weakness EENTM: No Nose Congestion, No Throat Pain Respiratory: Denies Cough, Denies Shortness of Air Cardiovascular: Denies Chest Pain, Denies Edema Gastrointestinal: Abdominal Pain, Diarrhea, Nausea, Vomiting Genitourinary: Denies Burning, Denies Pain Musculoskeletal: no symptoms reported Skin: no symptoms reported Psychiatric/Neurological: No Symptoms Reported Past Lucfbxy-Ryyebg-Ypvrvp Hx Patient Social History Tobacco Use?: No Substance use?: No Alcohol Use?: No Immunizations Up To Date Tetanus Booster (TDap): Unknown Seasonal Allergies Seasonal Allergies: No Past Medical History Surgery/Hospitalization HX: HTN, GALLBLADDER REMOVED,HYSTERECTOMY Surgeries: Yes (hernia repair, ovary removed, DXLS, kidney stone-URETERAL STENTS) Abdominal, Appendectomy, Bladder Surgery, Cardiac, Gallbladder, Hysterectomy, Oophorectomy, Orthopedic, Renal, Tubal Ligation Respiratory: Yes Sleep Apnea Currently Using CPAP: Yes Cardiac: Yes Cardiomyopathy, Hypertension, Valvular Heart Disease Neurological: Yes (lumbar spinal stenosis) Headaches /Migraines 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: No Female 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: Endometriosis 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 History: Hysterectomy Kidney Stones Gastrointestinal: Yes Gastroesophageal Reflux, Obstructive Bowel, Diverticulosis, Pancreatitis Musculoskeletal: Yes (lumbar spinal stenosis) Chronic Back Pain Endocrine: Yes (thyroid nodules; OBESITY) Diabetes, Non-Insulin dep Cancer: No Psychosocial: Yes Anxiety, Schizophrenia, Depression Integumentary: No Blood Disorders: Yes (anemia prior to hysterectomy) Adverse Reaction/Blood Tranf: No Family Medical History Reviewed Nursing Family Hx Hypertension 19 MOTHER Kidney disease 19 MOTHER Myocardial infarction 19 FATHER CAD Over 55 Years Old, Diabetes, Hypertension, Renal Disease Physical Exam Vital Signs Vital Signs - First Documented 02/27/23 21:39 Temp 36.0 Pulse 116 B/P (MAP) 159/136 (144) Pulse Ox 95 O2 Delivery Room Air Capillary Refill : Height/Weight/BMI Height: 5'3.00" Weight: 215lbs. 6.4oz. 97.542152kq; 38.00 BMI Method:Stated General Appearance: WD/WN, no apparent distress HEENT: PERRL/EOMI, pharynx normal Neck: full range of motion, supple Respiratory: lungs clear, normal breath sounds Cardiovascular: regular rate, rhythm, no murmur Gastrointestinal: normal bowel sounds, soft; No guarding, No rebound; tenderness (Right upper quadrant) Extremities: normal range of motion, non-tender, normal inspection, no pedal edema, no calf tenderness Back: normal inspection, no CVA tenderness, no vertebral tenderness Neurologic/Psychiatric: alert, oriented x 3 Skin: normal color, warm/dry Progress/Results/Core Measures Results/Orders Lab Results Laboratory Tests Test 02/27/23 21:50 02/27/23 23:23 Range/Units White Blood Count 6.7 4.3-11.0 10^3/uL Red Blood Count 4.18 3.80-5.11 10^6/uL Hemoglobin 12.9 11.5-16.0 g/dL Hematocrit 40 35-52 % Mean Corpuscular Volume 95 80-99 fL Mean Corpuscular Hemoglobin 31 25-34 pg Mean Corpuscular Hemoglobin Concent 33 32-36 g/dL Red Cell Distribution Width 13.2 10.0-14.5 % Platelet Count 194 130-400 10^3/uL Mean Platelet Volume 10.8 9.0-12.2 fL Immature Granulocyte % (Auto) 0 % Neutrophils (%) (Auto) 81 H 42-75 % Lymphocytes (%) (Auto) 14 12-44 % Monocytes (%) (Auto) 4 0-12 % Eosinophils (%) (Auto) 0 0-10 % Basophils (%) (Auto) 0 0-10 % Neutrophils # (Auto) 5.4 1.8-7.8 10^3/uL Lymphocytes # (Auto) 0.9 L 1.0-4.0 10^3/uL Monocytes # (Auto) 0.3 0.0-1.0 10^3/uL Eosinophils # (Auto) 0.0 0.0-0.3 10^3/uL Basophils # (Auto) 0.0 0.0-0.1 10^3/uL Immature Granulocyte # (Auto) 0.0 0.0-0.1 10^3/uL Percent Immature Platelet Fraction 10.5 H 0.0-7.6 % Sodium Level 138 135-145 MMOL/L Potassium Level 3.3 L 3.6-5.0 MMOL/L Chloride Level 106 98-107 MMOL/L Carbon Dioxide Level 17 L 21-32 MMOL/L Anion Gap 15 H 5-14 MMOL/L Blood Urea Nitrogen 15 7-18 MG/DL Creatinine 0.90 0.60-1.30 MG/DL Estimat Glomerular Filtration Rate 76 BUN/Creatinine Ratio 17 Glucose Level 94 70-105 MG/DL Calcium Level 9.0 8.5-10.1 MG/DL Corrected Calcium 8.8 8.5-10.1 MG/DL Magnesium Level 2.5 H 1.6-2.4 MG/DL Total Bilirubin 0.6 0.1-1.0 MG/DL Aspartate Amino Transf (AST/SGOT) 26 5-34 U/L Alanine Aminotransferase (ALT/SGPT) 35 0-55 U/L Alkaline Phosphatase 115 40-136 U/L C-Reactive Protein High Sensitivity 2.92 H 0.00-0.50 MG/DL Total Protein 7.8 6.4-8.2 GM/DL Albumin 4.3 3.2-4.5 GM/DL Lipase 9 8-78 U/L Smear Scan YES Urine Color YELLOW Urine Clarity CLEAR Urine pH 6.0 5-9 Urine Specific [place] 1.015 L 1.016-1.022 Urine Protein NEGATIVE NEGATIVE Urine Glucose (UA) NEGATIVE NEGATIVE Urine Ketones NEGATIVE NEGATIVE Urine Nitrite NEGATIVE NEGATIVE Urine Bilirubin NEGATIVE NEGATIVE Urine Urobilinogen 0.2 < = 1.0 MG/DL Urine Leukocyte Esterase 1+ H NEGATIVE Urine RBC (Auto) NEGATIVE NEGATIVE Urine RBC 0-2 /HPF Urine WBC 25-50 H /HPF Urine Squamous Epithelial Cells >50 H /HPF Urine Crystals NONE /LPF Urine Bacteria FEW H /HPF Urine Casts PRESENT /LPF Urine Hyaline Casts 2-5 H /LPF Urine Mucus MODERATE H /LPF Urine Culture Indicated YES My Orders Orders - LILIAN RUTHERFORD MD Cbc With Automated Diff (02/27/23 21:50) Comprehensive Metabolic Panel (02/27/23 21:50) Hs C Reactive Protein (02/27/23 21:50) Lipase (02/27/23 21:50) Magnesium (02/27/23 21:50) Ua Culture If Indicated (02/27/23 21:50) Ondansetron Injection (Zofran Injectio (02/27/23 22:00) Lactated Ringers (Lr 1000 Ml Iv Solution (02/27/23 21:50) Ed Iv/Invasive Line Start (02/27/23 21:50) Fentanyl Inj (Sublimaze Injection) (02/27/23 21:50) Ct Abdomen/Pelvis W (02/27/23 22:32) Fentanyl Inj (Sublimaze Injection) (02/27/23 22:32) Famotidine Tablet (Pepcid Tablet) (02/27/23 22:32) Pantoprazole Injection (Protonix Injecti (02/27/23 22:45) Iohexol Injection (Omnipaque 350 Mg/Ml 1 (02/27/23 23:30) Received Contrast (Hold Metformin- Contr (02/27/23 23:30) Ns (Ivpb) 100 Ml (Sodium Chloride 0.9% 1 (02/27/23 23:30) Urine Culture (02/27/23 23:23) Lidocaine 2% Viscous 15 Ml (Xylocaine Vi (02/28/23 00:00) Antacid Suspension (Mylanta Suspension (02/28/23 00:00) Lactated Ringers (Lr 1000 Ml Iv Solution (02/27/23 23:58) Sucralfate Tablet (Carafate Tablet) (02/28/23 00:00) Medications Given in ED Current Medications Medications Dose Ordered Sig/Louie Route Start Time Stop Time Status Last Admin Dose Admin Al Hydrox/Mg Hydrox/Simethicone 30 ml ONCE ONCE PO 02/28/23 00:00 02/28/23 00:01 DC 02/28/23 00:03 30 ML Iohexol 100 ml ONCE ONCE IV 02/27/23 23:30 02/27/23 23:58 DC 02/27/23 23:21 80 ML Lidocaine HCl 15 ml ONCE ONCE PO 02/28/23 00:00 02/28/23 00:01 DC 02/28/23 00:03 15 ML Ondansetron HCl 4 mg ONCE ONCE IVP 02/27/23 22:00 02/27/23 22:01 DC 02/27/23 22:00 4 MG Pantoprazole 40 mg ONCE ONCE IV 02/27/23 22:45 02/27/23 22:46 DC 02/27/23 22:38 40 MG Sodium Chloride 100 ml ONCE ONCE IV 02/27/23 23:30 02/27/23 23:58 DC 02/27/23 23:21 80 ML Vital Signs/I&O 02/27/23 21:39 Temp 36.0 Pulse 116 B/P (MAP) 159/136 (144) Pulse Ox 95 O2 Delivery Room Air 02/28/23 00:00 Intake Total 1000 ml Balance 1000 ml Blood Pressure Mean: 144 Progress Progress Note : Progress Note Seen and evaluated. IV, labs including CBC, CMP, lipase, magnesium and UA ordered. LR 1 L bolus, Zofran 4 mg IV and fentanyl 50 mcg IV ordered. Monitor patient. Differential diagnosis includes dehydration, electrolyte abnormality, bowel disorder/dysfunction, pancreatitis, other intra-abdominal pathology, UTI. 2323: Labs reviewed and CBC grossly normal but does have increased platelet fraction and neutrophils. Chemistry reviewed and shows slightly low potassium and slightly elevated magnesium with normal creatinine. CO2 slightly low with anion gap. UA still pending. Lipase is negative. We did order CT abdomen pelvis due to persistent pain and I have repeated dosing of fentanyl at 75 mcg IV and added Pepcid 20 mg p.o. and Protonix [address] abdomen pelvis is complete and I do not see any obvious free air or mass on my interpretation but and pending radiology report. Monitor patient. 0003: CT report noted. No acute findings noted. Patient is still with pain. I did review her history including upper endoscopy done by Dr. Gannon several years ago. She had very similar complaints at that time and was noted to have gastritis and hiatal hernia and started on PPI. I did asked the patient about this and she is not on PPI currently. I did order GI cocktail and repeat LR 1 L bolus. I have ordered sucralfate 1 g p.o. but patient states that she cannot tolerate the sucralfate it as it makes her sick. We will cancel that. We will see how she is doing after meds and repeat fluids. Monitor patient. 0057: Patient remains in pain that she is stating is 10 out of 10 but she does not want to do more pain medicine because she does not like how it feels. She is still having difficulty on having challenges and doing this outpatient given her persistent pain and situation. I did speak with Dr. Johnson, on-call for surgery. He has nothing further to add other than the treatment that have already done but would see the patient in consult if she is admitted. He agrees with continuing Protonix 40 mg IV twice daily for likely gastric ulcers. I will also add p.o. Pepcid every 12 hours as needed. I have discussed the case with Dr. Dudley and he is excepted the patient for admission, observation status with surgery consult. Discussed with patient who agrees with plan. Diagnostic Imaging Diagonstic Imaging: CT Plain Films/CT/US/NM/MRI: abdomen, pelvis Comments No acute findings in the abdomen or pelvis per stat rad read. Reviewed by me. Reviewed: Reviewed by Me Departure Communication (Admissions) Time/Spoke to Admitting Phy: 00:57 Time/Spoke to Consulting Phy: 00:53 Impression Primary Impression: Right upper quadrant abdominal pain Disposition: ADMITTED INPATIENT Condition: Stable Admissions Decision to Admit Reason: Admit from ER (General) Decision to Admit/Date: Feb 28, 2023 Time/Decision to Admit Time: 00:53 Departure-Patient Inst. Referrals: NO,LOCAL PHYSICIAN (PCP/Family) Primary Care Physician Patient Instructions: Peptic Ulcers (DC), Abdominal Pain, Adult ED Add. Discharge Instructions: All discharge instructions reviewed with patient and/or family. Voiced understanding. You should follow-up with the surgeon listed or of your choosing for recheck and further evaluation including upper endoscopy. Start medications as directed. Additionally, you may take [id number] Pepcid or the generic famotidine 20 mg once or twice daily as needed to reduce stomach acid. Follow-up with your doctor for recheck and further evaluation. Return for worse pain, fever, vomiting, weakness, breathing problems or other concerns as needed. LILIAN RUTHERFORD MD Feb 27, 2023 22:13
[2023-02-27 22:18] LABS: ALBUMIN 4.3 GM/DL (3.2-4.5); POTASSIUM 3.3 MMOL/L (3.6-5.0)
[2023-02-27 22:20] LABS: TOTAL PROTEIN 7.8 GM/DL (6.4-8.2)
[2023-02-27 22:22] LABS: BILIRUBIN,TOTAL 0.6 MG/DL (0.1-1.0)
[2023-02-27 22:24] LABS: CREATININE SERUM 0.9 MG/DL (0.60-1.30)
[2023-02-27 22:27] LABS: MAGNESIUM 2.5 MG/DL (1.6-2.4)
[2023-02-27] MEDS ORDERED: FAMOTIDINE 20 MG (PEPCID) TABLET PO STA (22:32)
[2023-02-27] MEDS ORDERED: PANTOPRAZOLE 40 MG (PROTONIX) VIAL IV ONE (22:45)
[2023-02-27] MEDS ORDERED: NS 100 ML (IVPB) BAG IV ONE (23:30)
[2023-02-27] MEDS ORDERED: IOHEXOL 350 MG/ML 100 ML (OMNIPAQUE 350) VIAL IV ONE (23:30)
[2023-02-27] MEDS ORDERED: HOLD METFORMIN - RECEIVED CONTRAST 20 ML VIAL IV SCH (23:30)
[2023-02-27 23:31] LABS: BILIRUBIN,URINE NEGATIVE (NEGATIVE); CLARITY,URINE CLEAR; COLOR,URINE YELLOW; GLUCOSE, URINE (UA) NEGATIVE (NEGATIVE); KETONES,URINE NEGATIVE (NEGATIVE); LEUKOCYTE ESTERASE ,URINE 1+ (NEGATIVE); NITRITE,URINE NEGATIVE (NEGATIVE); PROTEIN,URINE NEGATIVE (NEGATIVE)
[2023-02-27 23:46] LABS: BACTERIA,URINE FEW /HPF; RBC,URINE 0-2 /HPF; WBC,URINE 25-50 /HPF
[2023-02-27 23:47] LABS: SQUAMOUS EPITHELIAL CELL,UR >50 /HPF
[2023-02-28] VITALS (9 sets, daily range): BP systolic 141–183; BP diastolic 67–84
[2023-02-28] MEDS ORDERED: ANTACID SUSP 30 ML UDC (MYLANTA) PO ONE
[2023-02-28] MEDS ORDERED: SUCRALFATE 1 GM (CARAFATE) TAB PO ONE
[2023-02-28] MEDS ORDERED: LIDOCAINE 2% VISCOUS 15 ML UDC PO ONE
[2023-02-28] MEDS ORDERED: ONDANSETRON 4 MG/2 ML (SDV) Z0FRAN IV PRN (02:00)
[2023-02-28] MEDS ORDERED: FAMOTIDINE 20 MG (PEPCID) TABLET PO PRN (02:00)
[2023-02-28] MEDS: LACTATED RINGERS 1,000 ML IV SCH ×3 (02:12→17:26)
[2023-02-28] MEDS: fentaNYL INJ 100 MCG/2 ML AMP IV PRN ×2 (02:12→07:41)
--- NOTE | 2023-02-28 05:58 | Diagnostic Imaging Report ---
PROCEDURE: CT abdomen and pelvis with contrast. TECHNIQUE: Multiple contiguous axial images were obtained through the abdomen and pelvis after administration of intravenous contrast. Auto Exposure Controls were utilized during the CT exam to meet ALARA standards for radiation dose reduction. All CT scans use one or more of the following dose optimizing techniques: automated exposure control, MA and/or KvP adjustment based on patient size and exam type or iterative reconstruction. INDICATION: Upper abdominal pain. COMPARISON: 02/23/2019 FINDINGS: There is mild linear atelectasis and/or scarring in the lung bases. Several probable cysts are seen within the liver without other suspicious abnormality. Gallbladder is surgically absent without significant biliary ductal dilatation. There is no evidence of pancreatic, adrenal gland or splenic abnormality. Subcentimeter cortical cysts noted in the upper pole of right kidney. There is no hydronephrosis. No free fluid is seen within the abdomen or pelvis. There is fluid distention of small bowel with surgical suture involving right lower quadrant small bowel loops. There is no evidence of free fluid. No abscess is identified. Unopacified bladder is unremarkable. IMPRESSION: Fluid distention of small bowel may reflect ileus. No definite obstruction is identified and there is no other evidence of acute abnormality within the abdomen or pelvis. Dictated by: Dictated on workstation # [id number]
[2023-02-28] MEDS: PANTOPRAZOLE 40 MG (PROTONIX) VIAL IV SCH ×2 (09:52→21:18)
--- NOTE | 2023-02-28 10:28 | Consultation - Surgery ---
History of Present Illness History of Present Illness Patient Consulted On(donovan/time) 02/28/23 10:22 Time Seen by Provider: 09:06 History of Present Illness Surgery asked to consult regarding right sided abdominal pain. HPI per ED: Here with report of at least 10 episodes of diarrhea stools today and upper abdominal pain over the past 2 days. Feeling numb and weak today especially in her legs and that caused her to present for further evaluation. Does have history of diverticular disease. She has had previous cholecystectomy and appendectomy as well as hysterectomy. Denies blood in her urine or stool. Denies fever. Denies dysuria. Primary care physician is local primary care doctor in [place]. Timing/Duration: 1-2 Days Severity/Quality: Moderate, Cramping, Sharp Location: RUQ, Epigastric Radiation: LUQ Activities at Onset: None Modifying Factors: Improves With Defecating; Worsens With Eating, Worsens With Palpation Associated Symptoms: No Back Pain, No Chest Pain, No Fever/Chills; Nausea/Vomiting; No Shortness of Air; Weakness When I spoke to pt she had just gotten some pain meds and stated that it had helped. She states otherwise the pain is still 10 out of 10. The pain goes across stomach and then around to her back on the right. She even mentioned she thought it could be "kidney pain or problems". She states she has had pain like this for "years", but usually it only lasts a day and is not this bad. There is nothing she does except rest to relieve it and she doesn't know what brings it on. She describes a stabbing pain. She states she can't eat because of the pain. She states she had an EGD years ago and was told she had inflammation and maybe an ulcer. Allergies and Home Medications Allergies Coded Allergies: Sulfa (Sulfonamide Antibiotics) (Verified Allergy, Intermediate, hives, 02/23/19) risperidone (Verified Allergy, Unknown, 02/23/19) topiramate (Verified Allergy, Unknown, 05/22/15) tramadol (Verified Allergy, Unknown, 04/22/15) trazodone (Verified Allergy, Unknown, 02/23/19) Uncoded Allergies: SILK TAPE (Adverse Reaction, Unknown, 05/22/15) Patient Home Medication List Home Medication List Reviewed: Yes Acetaminophen (Tylenol Extra Strength) 500 Mg Tablet, 500 MG PO Q6H PRN for PAIN-MILD, (Reported) Entered as Reported by: CASEY RYAN on 02/25/191516 Ciprofloxacin HCl (Cipro) 500 Mg Tablet, 500 MG PO TWICE A DAY Prescribed by: PANFILO MONTEZ on 02/26/191419 Cyclobenzaprine HCl (Cyclobenzaprine HCl) 10 Mg Tablet, 10 MG PO TID PRN for MUSCLE SPASMS, (Reported) Entered as Reported by: CASEY RYAN on 02/25/191516 Ibuprofen (Ibuprofen) 200 Mg Tablet, 400 MG PO Q6H PRN for PAIN-MILD, (Reported) Entered as Reported by: CASEY RYAN on 02/25/191516 Metronidazole (Metronidazole) 500 Mg Tablet, 500 MG PO 3 times a day Prescribed by: PANFILO MONTEZ on 02/26/191419 Multivitamin/Iron/Folic Acid (Centrum Adults Tablet) 1 Each Tablet, 1 EACH PO DAILY, (Reported) Entered as Reported by: CASEY RYAN on 02/25/191516 Past Obfcfhu-Dubufj-Wkbphj Hx Patient Social History Smoking Status: Never a Smoker 2nd Hand Smoke Exposure: No Recent Hopitalizations: No Alcohol Use?: No Immunizations Up To Date Tetanus Booster (TDap): Unknown Date of Pneumonia Vaccine: Sep 14, 2012 Seasonal Allergies Seasonal Allergies: No Surgeries History of Surgeries: Yes (hernia repair, ovary removed, DXLS, kidney stone- URETERAL STENTS) Surgeries: Abdominal, Appendectomy, Bladder Surgery, Cardiac, Gallbladder, Hysterectomy, Oophorectomy, Orthopedic, Renal, Tubal Ligation Respiratory History of Respiratory Disorde: Yes Respiratory Disorders: Sleep Apnea Cardiovascular History of Cardiac Disorders: Yes Cardiac Disorders: Cardiomyopathy, Hypertension, Valvular Heart Disease Neurological History of Neurological Disord: Yes (lumbar spinal stenosis) Neurological Disorders: Headaches /Migraines Reproductive System Hx 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: No Female 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: Endometriosis 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 Genitourinary Genitourinary Disorders: Kidney Stones Gastrointestinal History of Gastrointestinal Di: Yes Gastrointestinal Disorders: Gastroesophageal Reflux, Obstructive Bowel, Diverticulosis, Pancreatitis Musculoskeletal History of Musculoskeletal Dis: Yes (lumbar spinal stenosis) Musculoskeletal Disorders: Chronic Back Pain Endocrine History of Endocrine Disorders: Yes (thyroid nodules; OBESITY) Endocrine Disorders: Diabetes, Non-Insulin dep Cancer History of Cancer: No Psychosocial History of Psychiatric Problem: Yes Behavioral Health Disorders: Anxiety, Schizophrenia, Depression Integumentary History of Skin or Integumenta: No Blood Transfusions History of Blood Disorders: Yes (anemia prior to hysterectomy) Adverse Reaction to a Blood Tr: No Family Medical History Significant Family History: CAD Over 55 Years Old, Diabetes, Hypertension, Renal Disease Family Medial History: Hypertension 19 MOTHER Kidney disease 19 MOTHER Myocardial infarction 19 FATHER Review of Systems-General Constitutional: No chills; malaise, weakness EENTM: No blurred vision, No epistaxis, No throat swelling Respiratory: No cough, No dyspnea on exertion Cardiovascular: No chest pain, No palpitations Gastrointestinal: abdominal pain, diarrhea, nausea; No vomiting Genitourinary: No dysuria; frequency; No hematuria Musculoskeletal: joint pain, joint swelling, muscle stiffness Skin: No change in color, No change in hair/nails Psychiatric/Neurological: Denies Anxiety, Denies Depressed, Denies Tremors Physical Exam-General Problems Physical Exam Vital Signs Vital Signs - First Documented 02/27/23 02/28/23 21:39 01:35 Temp 36.0 Pulse 116 Resp 18 B/P (MAP) 159/136 (144) Pulse Ox 95 O2 Delivery Room Air Capillary Refill : General Appearance: mild distress (secondary to pain), obese Eyes: Bilateral Eye PERRL, Bilateral Eye EOMI HEENT: pharynx normal; No scleral icterus (R), No scleral icterus (L) Neck: non-tender, supple Respiratory: lungs clear, normal breath sounds, no respiratory distress, no accessory muscle use Cardiovascular: regular rate, rhythm, no murmur Gastrointestinal: soft, no organomegaly, tenderness (right side and right flan), hernia (small umbilical) Back: no CVA tenderness, no vertebral tenderness Extremities: no pedal edema, no calf tenderness Neurologic/Psychiatric: gastroenterology technician II-XII nml as tested, alert, oriented x 3 Skin: normal color, warm/dry Lymphatic: no adenopathy (neck, axilla or groin) Data Review Labs Laboratory Tests 02/27/23 21:50: White Blood Count 6.7, Red Blood Count 4.18, Hemoglobin 12.9, Hematocrit 40, Mean Corpuscular Volume 95, Mean Corpuscular Hemoglobin 31, Mean Corpuscular Hemoglobin Concent 33, Red Cell Distribution Width 13.2, Platelet Count 194, Mean Platelet Volume 10.8, Immature Granulocyte % (Auto) 0, Neutrophils (%) (Auto) 81H, Lymphocytes (%) (Auto) 14, Monocytes (%) (Auto) 4, Eosinophils (%) (Auto) 0, Basophils (%) (Auto) 0, Neutrophils # (Auto) 5.4, Lymphocytes # (Auto) 0.9L, Monocytes # (Auto) 0.3, Eosinophils # (Auto) 0.0, Basophils # (Auto) 0.0, Immature Granulocyte # (Auto) 0.0, Percent Immature Platelet Fraction 10.5H, Sodium Level 138, Potassium Level 3.3L, Chloride Level 106, Carbon Dioxide Level 17L, Anion Gap 15H, Blood Urea Nitrogen 15, Creatinine 0.90, Estimat Glomerular Filtration Rate 76, BUN/Creatinine Ratio 17, Glucose Level 94, Calcium Level 9.0, Corrected Calcium 8.8, Magnesium Level 2.5H, Total Bilirubin 0.6, Aspartate Amino Transf (AST/SGOT) 26, Alanine Aminotransferase (ALT/SGPT) 35, Alkaline Phosphatase 115, C-Reactive Protein High Sensitivity 2.92H, Total Protein 7.8, Albumin 4.3, Lipase 9, Smear Scan YES 02/27/23 23:23: Urine Color YELLOW, Urine Clarity CLEAR, Urine pH 6.0, Urine Specific [place] 1.015L, Urine Protein NEGATIVE, Urine Glucose (UA) NEGATIVE, Urine Ketones NEGATIVE, Urine Nitrite NEGATIVE, Urine Bilirubin NEGATIVE, Urine Urobilinogen 0.2, Urine Leukocyte Esterase 1+H, Urine RBC (Auto) NEGATIVE, Urine RBC 0-2, Urine WBC 25-50H, Urine Squamous Epithelial Cells >50H, Urine Crystals NONE, Urine Bacteria FEWH, Urine Casts PRESENT, Urine Hyaline Casts 2-5H, Urine Mucus MODERATEH, Urine Culture Indicated YES Assessment/Plan Assessment/Plan Assessment/Plan Right sided Abdominal pain - intractable DM HTN ??UTI Pt has WBC and Leukocyte Esterase in her urine. She may have a UTI, but I also want to rule out a Gastric ulcer. I reviewed the CT films myself and spoke with ER physician regarding her case. Microbiology is not back on urine sample yet. I spoke with the pt about possible EGD to rule out ulcer disease. She is agreeable to this and hasn't eaten anything today because she can't. I went over risks and complications not limited to pain, bleeding and even esophageal perforation. All questions answered to her satisfaction. Will get consent and plan EGD today. MADAN SHOEMAKER DO Feb 28, 2023 10:28
[2023-02-28] MEDS ORDERED: HURRICAINE EXT TUBE (BENZOCAINE) ONE (11:42)
[2023-02-28] MEDS ORDERED: proPOfol 200 MG/20 ML (DIPRIVAN) VIAL IV ONE (11:48)
[2023-02-28] MEDS ORDERED: LACTATED RINGERS 1,000 ML IV STA (11:59)
[2023-02-28] MEDS ORDERED: HURRICAINE EXT TUBE (BENZOCAINE) XX PRN (12:00)
--- NOTE | 2023-02-28 12:08 | Anesthesia-General Post-Op ---
MAC Patient Condition Mental Status/LOC: Same as Preop Cardiovascular: Satisfactory Nausea/Vomiting: Absent Respiratory: Satisfactory Pain: Controlled Complications: Absent Post Op Complications Complications None Follow Up Care/Instructions Patient Instructions None needed. Anesthesiology Discharge Order Discharge Order Patient is doing well, no complaints, stable vital signs, no apparent adverse anesthesia problems. No complications reported per nursing. MICKEY MENDOZA CRNA Feb 28, 2023 12:08
[2023-02-28] MEDS: morphine INJ 4 MG/ML 1 ML (VIAL/SYRINGE) IVP PRN ×2 (12:38→21:18)
--- NOTE | 2023-02-28 12:40 | History & Physical-Hospitalist ---
History of Present Illness HPI/Chief Complaint Patient is a 52-year-old -[place]ammar[place] female with past medical history of hypertension and gastric ulcer disease who presented to the emergency department due to abdominal pain. She states her symptoms started a few days ago and have persisted since that time. They also started when she had a significant episode of diarrhea. She reports she had multiple bowel movements that were watery. That has since resolved. Her pain is increased since that time and she rates it a 10 out of 10. She has had cholecystectomy and appendectomy along with hysterectomy in the past. She reports her pain is most severe in the right upper quadrant and is sharp and stabbing in nature. She denies any chest pain or shortness of breath. She does have some nausea. Source: patient Date Seen 02/28/23 Time Seen by a Provider: 11:30 Attending Physician Ailyn,Local Physician PCP Admitting Physician: Devin Dudley MD Attending Physician: Devin Dudley MD Referring Physician Date of Admission Feb 28, 2023 at 01:09 Home Medications & Allergies Home Medications Reviewed patient Home Medication Reconciliation performed by pharmacy medication reconciliations lawn technician and/or nursing. Patients Allergies have been reviewed. Allergies Allergies Coded Allergies Sulfa (Sulfonamide Antibiotics) (Verified Allergy, Intermediate, hives, 02/23/19) risperidone (Verified Allergy, Unknown, 02/23/19) topiramate (Verified Allergy, Unknown, 05/22/15) tramadol (Verified Allergy, Unknown, 04/22/15) trazodone (Verified Allergy, Unknown, 02/23/19) Uncoded Allergies SILK TAPE ( Adverse Reaction, Unknown, 05/22/15) Past Mwvwxxn-Wphlas-Fcmjax Hx Patient Social History Tobacco Use?: No Smoking Status: Never a Smoker Use of E-Cig and/or Vaping dev: No Substance use?: No Alcohol Use?: No Pt feels they are or have been: No Immunizations Up To Date Tetanus Booster (TDap): Less Than 5 Years Date of Pneumonia Vaccine: Sep 14, 2012 Seasonal Allergies Seasonal Allergies: No Current Status status: No status: No Advance Directives: No Communicates: Verbally Primary Language: Citizen Of [place] Preferred Spoken Language: Citizen Of [place] Is interpretation needed?: No Sensory deficits: Vision impairment Past Medical History Surgeries: Abdominal, Appendectomy, Bladder Surgery, Cardiac, Gallbladder, Hysterectomy, Oophorectomy, Orthopedic, Renal, Tubal Ligation Sleep Apnea Currently Using CPAP: Yes Cardiomyopathy, Hypertension, Valvular Heart Disease Headaches /Migraines 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 Hypertension 2. Schizoaffective Disorder 3. Generalized anxiety disorder 4. Depression 5. Tyroid nodule with history of negative bx 6. Chronic pain of unknown cause 7. Obesity 8. Chronic Dyspnea 9.Violation of Narcotic Contract by filling at multiple pharmacies. 10. GERD Past Surgical History 1. Left knee arthroscopy x2 2. Right knee arthroscopy x1 3. Total Abdominal hysterectomy with "bladder repair" for endometriosis 4. Left inguinal hernia repair 5. Appendectomy 6. Cholecystectomy Family Medical History Reviewed Nursing Family Hx Hypertension 19 MOTHER Kidney disease 19 MOTHER Myocardial infarction 19 FATHER CAD Over 55 Years Old, Diabetes, Hypertension, Renal Disease Review of Systems Constitutional: see HPI Physical Exam Physical Exam Vital Signs Vital Signs - First Documented 02/27/23 02/28/23 02/28/23 21:39 01:35 12:05 Temp 36.0 Pulse 116 Resp 18 B/P (MAP) 159/136 (144) Pulse Ox 95 O2 Delivery Room Air O2 Flow Rate 6.00 Capillary Refill : Height, Weight, BMI Height: 5'3.00" Weight: 215lbs. 6.4oz. [id number]; 39.57 BMI Method:Stated General Appearance: No Apparent Distress, Mild Distress (appears uncomfortable), Obese Respiratory: Lungs Clear, No Accessory Muscle Use, No Respiratory Distress Cardiovascular: Regular Rate, Rhythm, No Murmur Gastrointestinal: Normal Bowel Sounds; No Distended, No Guarding; Tenderness (RUQ) Extremity: No Calf Tenderness, No Pedal Edema Neurologic/Psychiatric: Alert, Oriented x3, Normal Mood/Affect Results Results/Procedures Labs Laboratory Tests 02/27/23 21:50 Patient resulted labs reviewed. Imaging: Reviewed Imaging Report Imaging [facility] [place] NAME: WALT DWYER [facility] REC#: [id number] PT STATUS: ADM Corrina : 1970 PHYSICIAN: LILIAN RUTHERFORD MD ADMIT DATE: 02/28/23 Signed Date of Exam:02/27/23 CT ABDOMEN/PELVIS W PROCEDURE: CT abdomen and pelvis with contrast. TECHNIQUE: Multiple contiguous axial images were obtained through the abdomen and pelvis after administration of intravenous contrast. Auto Exposure Controls were utilized during the CT exam to meet ALARA standards for radiation dose reduction. All CT scans use one or more of the following dose optimizing techniques: automated exposure control, MA and/or KvP adjustment based on patient size and exam type or iterative reconstruction. INDICATION: Upper abdominal pain. COMPARISON: 02/23/2019 FINDINGS: There is mild linear atelectasis and/or scarring in the lung bases. Several probable cysts are seen within the liver without other suspicious abnormality. Gallbladder is surgically absent without significant biliary ductal dilatation. There is no evidence of pancreatic, adrenal gland or splenic abnormality. Subcentimeter cortical cysts noted in the upper pole of right kidney. There is no hydronephrosis. No free fluid is seen within the abdomen or pelvis. There is fluid distention of small bowel with surgical suture involving right lower quadrant small bowel loops. There is no evidence of free fluid. No abscess is identified. Unopacified bladder is unremarkable. IMPRESSION: Fluid distention of small bowel may reflect ileus. No definite obstruction is identified and there is no other evidence of acute abnormality within the abdomen or pelvis. Dictated by: Dictated on workstation # [id number] Dict: 02/28/23 0554 Trans: 02/28/23 0841 [id number] Interpreted by: LIZZY DIAZ MD Electronically signed by: LIZZY DIAZ MD 02/28/23 0841 Assessment/Plan Admission Diagnosis intractable abd pain Admission Status: Observation Assessment and Plan intractable abd pain Surgery consulted, appreciate recs EGD today Change to morphine as has had no pain control with fentanyl Continue PPI HTN BP relatively well controlled Resume home meds when able to take PO DVT ppx: SCDs and ambulation Diagnosis/Problems Diagnosis/Problems (1) Intractable abdominal pain (2) Right upper quadrant abdominal pain Status: Acute (3) HTN (hypertension) Status: Acute Qualifiers: Hypertension type: primary hypertension Qualified Codes: I10 - Essential (primary) hypertension MARK THOMPSON MD Feb 28, 2023 12:39
--- NOTE | 2023-02-28 13:24 | Progress Note-Post Operative ---
Post-Operative Progess Note Surgeon (s)/Tools Programmer (s) Surgeon MADAN SHOEMAKER DO Tools Programmer: none Pre-Operative Diagnosis Chronic Gastritis, Epigastric and abdominal pain Post-Operative Diagnosis Gastritis Hiatal hernia Procedure & Operative Findings Date of Procedure 02/28/23 Procedure Performed/Findings EGD with biopsy PROCEDURE NOTE: After informed consent was obtained, the patient was brought to the endoscopy suite, placed in bed in left lateral decubitus position. She was administered IV sedation by the LICENSED SURVEYOR who then monitored vitals the entire time, heart rate, blood pressure and pulse ox and the scope was inserted down the mouth through the esophagus into the stomach. On the way down, noted some mild esophagitis, took a picture, pushed into the stomach, pushed past the antrum into the duodenum. Duodenum looked good. Pulled back, noted some gastritis and did a biopsy of the antrum. Next, retroflexed the scope, saw a 1cm Grade III AFS hiatal hernia and took a picture. I also did a biopsy of the body of the stomach. Finally, pulled the scope into the GE junction, took another picture of the hiatal hernia and then did a biopsy of the GE junction. Pushed the scope back into the stomach, suctioned all the air out of the stomach. At this point pulled the scope up the esophagus and out the mouth. The patient tolerated the procedure, and she recovered in endoscopy suite. Anesthesia Type IV sedation by LICENSED SURVEYOR Estimated Blood Loss Estimated blood loss (mL): scant Specimens/Packing Specimens Removed antral bx body of stomach bx GE jxn bx MADAN SHOEMAKER DO Feb 28, 2023 13:24
[2023-02-28] MEDS ORDERED: PROC10TA10 PO (15:46)
[2023-02-28] MEDS ORDERED: LOSA100T58 PO (15:46)
[2023-02-28] MEDS ORDERED: AMLO-251 PO (15:46)
[2023-02-28] MEDS ORDERED: CHLO25TA22 PO (15:46)
[2023-02-28] MEDS ORDERED: METO50TA7 PO (15:46)
[2023-03-01 03:17] VITALS: BP 145/73
[2023-03-01] MEDS: morphine INJ 4 MG/ML 1 ML (VIAL/SYRINGE) IVP PRN ×4 (03:27→23:40)
[2023-03-01] MEDS: LACTATED RINGERS 1,000 ML IV SCH ×4 (03:27→23:41)
[2023-03-01 08:00] VITALS: BP 154/86
[2023-03-01] MEDS: PANTOPRAZOLE 40 MG (PROTONIX) VIAL IV SCH ×2 (08:48→19:47)
[2023-03-01 11:44] VITALS: BP 165/74
[2023-03-01] MEDS ORDERED: HYDROcodone/ACETAMINOPHEN 5 MG/325 MG TABLET PO PRN (12:00)
--- NOTE | 2023-03-01 13:28 | Progress Note - Hospitalist ---
Subjective HPI/CC On Admission Date Seen by Provider: Mar 01, 2023 Patient is a 52-year-old -[place] female with past medical history of hypertension and gastric ulcer disease who presented to the emergency department due to abdominal pain. She states her symptoms started a few days ago and have persisted since that time. They also started when she had a significant episode of diarrhea. She reports she had multiple bowel movements that were watery. Th at has since resolved. Her pain is increased since that time and she rates it a 10 out of 10. She has had cholecystectomy and appendectomy along with hysterectomy in the past. She reports her pain is most severe in the right upper quadrant and is sharp and stabbing in nature. She denies any chest pain or shortness of breath. She does have some nausea. Subjective/Events-last exam Pt reports doing ok today. Essentially the same. Had EGD yesterday. Reports her pain is around her side and to the back. Sensitive to even light touch. Denies any rash or history of chickenpox/shingles. Objective Exam Vital Signs Vital Signs Date Time Temp Pulse Resp B/P (MAP) Pulse Ox O2 Delivery O2 Flow Rate FiO2 03/01/23 11:44 36.2 68 14 165/74 (104) 97 Room Air 03/01/23 03:17 0.00 0.00 Capillary Refill : General Appearance: No Apparent Distress, Obese Respiratory: Lungs Clear, No Respiratory Distress Cardiovascular: Regular Rate, Rhythm, No Murmur Gastrointestinal: Normal Bowel Sounds, Soft Neurologic/Psychiatric: Alert, Oriented x3 Skin: Other (no rash visible on left flank where pain is- very sensitive to any touch on flank) Results/Procedures Lab Patient resulted labs reviewed. Imaging: Reviewed Imaging Report Assessment/Plan Assessment and Plan Assess & Plan/Chief Complaint intractable abd pain Flank pain ?ileus on imaging Surgery consulted, appreciate recs EGD showed gastritis and hiatal hernia Add hydrocodone today, continue morphine for breakthrough pain Continue PPI No BM yet- add regimen HTN BP higher today Resume home meds DVT ppx: SCDs and ambulation Diagnosis/Problems Diagnosis/Problems (1) Intractable abdominal pain (2) Right upper quadrant abdominal pain Status: Acute (3) HTN (hypertension) Status: Acute Qualifiers: Hypertension type: primary hypertension Qualified Codes: I10 - Essential (primary) hypertension MARK THOMPSON MD Mar 01, 2023 13:28
[2023-03-01] MEDS ORDERED: SENNA W/DOCUSATE (SENOKOT S) TABLET PO PRN (13:30)
[2023-03-01] MEDS: LOSARTAN 100 MG (COZAAR) TABLET PO SCH (15:03)
[2023-03-01] MEDS: amLODIPine 10 MG TABLET PO SCH (15:03)
[2023-03-01] MEDS: LIDOCAINE 4% (SALONPAS) PATCH TOP SCH (15:03)
--- NOTE | 2023-03-01 15:13 | Progress Note - Surgery ---
Subjective Time Seen by a Provider: 15:04 Subjective/Events-last exam Pt seen and examined, she is lying in bed. States pain is about same, no changes. Tolerating diet. Review of Systems Pulmonary: No Dyspnea, No Cough Cardiovascular: No: Chest Pain, Palpitations Gastrointestinal: Abdominal Pain, Diarrhea; No: Nausea, Vomiting Objective Exam Vital Signs Date Time Temp Pulse Resp B/P (MAP) Pulse Ox O2 Delivery O2 Flow Rate FiO2 03/01/23 11:44 36.2 68 14 165/74 (104) 97 Room Air 03/01/23 08:00 Room Air 03/01/23 08:00 36.2 82 14 154/86 (108) 95 Room Air 03/01/23 03:17 36.7 76 18 145/73 (97) 98 Room Air 0.00 0.00 02/28/23 23:12 36.6 64 18 167/81 (109) 95 Room Air 0.00 0.00 02/28/23 20:00 36.3 82 18 183/84 (117) 96 Room Air 02/28/23 20:00 Room Air 02/28/23 16:20 36.5 71 20 151/79 (103) 93 Room Air I & O 03/01/23 07:00 Intake Total 660 ml Output Total 1300 ml Balance -640 ml Capillary Refill : General Appearance: No Apparent Distress, Obese Respiratory: Lungs Clear, No Respiratory Distress Cardiovascular: Regular Rate, Rhythm, No Murmur Gastrointestinal: soft, no organomegaly, tenderness (right side and right flan), hernia (small umbilical) Extremity: No Calf Tenderness, No Pedal Edema Neurologic/Psychiatric: Alert, Oriented x3 Skin: Other (no rash visible on left flank where pain is- very sensitive to any touch on flank) Results Lab Microbiology 02/27/23 Urine Culture - Final, Complete Growth Consistent Assessment/Plan Assessment/Plan Assessment/Plan Right sided Abdominal pain - intractable DM HTN ??UTI EGD done yesterday did not find anything in stomach or duodenum to explain her pain. UA looks like it was dirty catch. Plan to try and switch to oral pain meds. This may just be musculoskeletal or even beginnings of Shingles. I will follow along. MADAN SHOEMAKER DO Mar 01, 2023 15:13
[2023-03-01 15:38] VITALS: BP 145/75
--- NOTE | 2023-03-01 15:59 | Diagnostic Imaging Report ---
PROCEDURE: US Abdomen, limited. TECHNIQUE: Multiple realtime grayscale images were obtained over the abdomen in various projections. INDICATION: Right upper quadrant pain. FINDINGS: Liver parenchyma is homogeneous with normal echotexture. There is a 1.5 cm cyst in the lateral segment of the left lobe of the liver. The gallbladder is surgically absent. The common duct is not dilated. The pancreas is obscured by bowel gas. The aorta and IVC appear normal. Right kidney measures 11 cm in length. There is no ascites. IMPRESSION: No acute abnormalities in the abdomen. Dictated by: Dictated on workstation # [id number]
[2023-03-01 19:34] VITALS: BP 137/75
[2023-03-01] MEDS: meTOproloL SUCCINATE 50 MG (TOPROL XL) TAB PO SCH (19:47)
[2023-03-01] MEDS ORDERED: polyethylene glycoL POWDER 17 GM (MIRALAX) PACK PO SCH (21:00)
[2023-03-01] MEDS ORDERED: LIDOCAINE PATCH REMOVAL TP SCH (21:00)
[2023-03-01 23:36] VITALS: BP 122/60
[2023-03-02 04:46] VITALS: BP 150/88
[2023-03-02] MEDS: LOSARTAN 100 MG (COZAAR) TABLET PO SCH (08:11)
[2023-03-02] MEDS: amLODIPine 10 MG TABLET PO SCH (08:11)
[2023-03-02] MEDS: meTOproloL SUCCINATE 50 MG (TOPROL XL) TAB PO SCH (08:12)
[2023-03-02 08:19] VITALS: BP 139/95
[2023-03-02] MEDS: LIDOCAINE 4% (SALONPAS) PATCH TOP SCH (08:24)
[2023-03-02] MEDS: morphine INJ 4 MG/ML 1 ML (VIAL/SYRINGE) IVP PRN ×2 (08:24→11:18)
[2023-03-02] MEDS: PANTOPRAZOLE 40 MG (PROTONIX) VIAL IV SCH (08:24)
[2023-03-02] MEDS ORDERED: VALACYCLOVIR 500 MG TAB (VALTREX) PO SCH (10:30)
[2023-03-02] MEDS ORDERED: Lidocaine 4% Patch TOP (10:36)
[2023-03-02] MEDS ORDERED: VALA500T4 PO (10:36)
[2023-03-02] MEDS ORDERED: PANT40TA2 PO (10:36)
[2023-03-02] MEDS ORDERED: ACHD5005 PO (10:36)
--- NOTE | 2023-03-02 10:38 | Discharge Inst-Simple/Standard ---
Discharge Inst-Standard Discharge Medications New, Converted or Re-Newed RX: Transmitted to Pharmacy Patient Instructions/Follow Up Plan of Care/Instructions/FU: Please continue to take your medications as written. Please follow up with your primary care doctor to follow up this hospital stay. Activity as Tolerated: Yes Discharge Diet: Cardiac Diet Return to The Hospital For: Chest pain, shortness of breath, fever, weakness, if you feel you are getting worse. MARK THOMPSON MD Mar 02, 2023 10:38
--- NOTE | 2023-03-02 10:41 | Discharge Summary ---
Diagnosis/Chief Complaint Date of Admission Feb 28, 2023 at 01:09 Date of Discharge Discharge Date: Mar 02, 2023 Admission Diagnosis intractable abd pain Primary Care No,Local Physician Discharge Diagnosis (1) Intractable abdominal pain (2) Right upper quadrant abdominal pain Status: Acute (3) HTN (hypertension) Status: Acute Discharge Summary Discharge Physical Exam Allergies: Coded Allergies: Sulfa (Sulfonamide Antibiotics) (Verified Allergy, Intermediate, hives, 02/23/19) risperidone (Verified Allergy, Unknown, 02/23/19) topiramate (Verified Allergy, Unknown, 05/22/15) tramadol (Verified Allergy, Unknown, 04/22/15) trazodone (Verified Allergy, Unknown, 02/23/19) Uncoded Allergies: SILK TAPE (Adverse Reaction, Unknown, 05/22/15) Vitals & I&Os Vital Signs Date Time Temp Pulse Resp B/P (MAP) Pulse Ox O2 Delivery O2 Flow Rate FiO2 03/02/23 11:52 36.9 73 20 139/95 98 Room Air 0.00 General Appearance: No Apparent Distress, WD/WN Cardiovascular: Regular Rate, Rhythm, No Murmur Gastrointestinal: Normal Bowel Sounds, Soft Neurologic/Psychiatric: Alert, Oriented x3 Hospital Course Patient was admitted to the hospital secondary to intractable abdominal and flank pain. He had had similar symptoms and had an EGD which revealed gastritis at that time. Surgery was consulted and repeated EGD which showed gastritis and a small hiatal hernia. Biopsies were taken and sent. She was treated with PPI and her symptoms did not really improve. Upon further exam she was quite sensitive on the skin on her right upper quadrant all the way around her back following a T9-T10 dermatome. She did not have any rashes. I started her on a lidocaine patch and Valtrex which seemed to help. For completeness sake I did get a right upper quadrant ultrasound which revealed a hepatic cyst but nothing acute. Upon review of imaging the cyst was present in 2016 as well. Her pain improved and she is able to be discharged home in stable improved condition. I did call and speak with her primary care physician Dr. John in [place]. She is to follow-up with him in the next week or 2. Labs (last 24 hrs) Microbiology 02/27/23 Urine Culture - Final, Complete Growth Consistent Patient resulted labs reviewed. Imaging: Reviewed Imaging Report Discussion & Recommendations Discharge Planning: >30 minutes discharge planning Discharge Home Medications: Active Scripts Active [Lidocaine 4% Patch] 1 EA Patch 1 Ea TOP DAILY Protonix (Pantoprazole Sodium) 40 Mg Tablet.dr 40 Mg PO DAILY Hydrocodone-Acetamin 5-325 mg (Hydrocodone/Acetaminophen) 5 Mg-325 Mg Tablet 1 Ea PO Q4H PRN Valtrex (Valacyclovir HCl) 500 Mg Tablet 1,000 Mg PO Q8HR Reported Losartan Potassium 100 Mg Tablet 100 Mg PO DAILY Amlodipine Besylate 10 Mg Tablet 10 Mg PO DAILY Metoprolol Succinate 50 Mg Tab.er.24h 25 Mg PO BID Chlorthalidone 25 Mg Tablet 25 Mg PO DAILY Prochlorperazine Maleate 10 Mg Tablet 10 Mg PO Q8H PRN Instructions to patient/family Please see electronic discharge instructions given to patient. Copy Copies To 1: Dr Noble John Problem Qualifiers (1) HTN (hypertension): Hypertension type: primary hypertension Qualified Codes: I10 - Essential (primary) hypertension MARK THOMPSON MD Mar 02, 2023 10:41
[2023-03-02] MEDS: LACTATED RINGERS 1,000 ML IV SCH (11:17)
[2023-03-02 11:52] VITALS: BP 139/95
== END 2023-03-02 11:54 | disposition home or self-care (01) ==
LOC: EDUNIT# 21:32 → ER 21:35 → INTOOBSV 02-28 01:09 → 4TH 02-28 01:09
PROVIDERS: ADMIT Internal Medicine; ATTEND Internal Medicine
DX: K29.50 Unspecified chronic gastritis without bleeding (principal); K21.00 Gastro-esophageal reflux disease with esophagitis, without bleeding; K44.9 Diaphragmatic hernia without obstruction or gangrene; K31.89 Other diseases of stomach and duodenum; I10 Essential (primary) hypertension; E11.9 Type 2 diabetes mellitus without complications; E66.9 Obesity, unspecified; Z79.899 Other long term (current) drug therapy
CPT/HCPCS: 36415; 74177; 76705; 80053; 81000; 83690; 83735; 85025; 86141; 87088; 88305; 96361; 96374; 96375; 96376; G0378